=== PATIENT | female | born 1955 | race Caucasian/White ===

== ENCOUNTER 2020-01-14 13:45 | Emergency (ER) | payer OTHER ==
--- OUTSIDE RECORDS SUMMARY | 2020-01-14 14:10 | XMS REPORT | Continuity of Care Document ---
:1955 Author Organization [facility] Care Team Providers Name Role Phone [facility] Unavailable Un available Problems Problem Status Onset Classification Date Comments Sourc e Date Reported FALL Active 02/02/20 16 [facility] CLOSED FRACTURE OF Active 02/02/20 M H LEFT HIP WITH 16 [facility] NONUNIO 715.16 - LOC PRIM Active 05/04/19 OPID OSTEOA 12 [facility] Gastroesophageal Resolved Problem 02/09/2016 reflux disease [facility] (disorder) Hypothyroidism Resolved Problem 02/09/2016 (disorder) [facility] Malignant tumor of Resolved Problem 02/09/2016 breast (disorder) [facility] Bipolar disorder Resolved Problem 02/09/2016 (disorder) [facility] FX UNSP PART OF Active NECK OF L FEMUR, [facility] SUBS FO Medications Medication Details Route Status Patient Ordering Order Source Instructions Provider Date tramadol 50 mg = 1 tab, Active hydrochloride 50 PO, Q6Hnow, PRN 2015 [facility] Oral Tablet Pain Score 6-10, # 30 tab, 0 Refill(s) Ergocalciferol 50,000 Intl[facility] Active 02/05/ M H 78718 UNT Oral = 1 cap, PO, 2015 [facility] Capsule Q7D, # 8 cap, 0 Refill(s) Docusate Sodium 100 mg = 1 cap, Active 100 MG Oral PO, BID, # 60 [facility] Capsule cap, 0 Refill(s) cholecalciferol 2,000 IntlUnit Active 02/05/ M H 2000 intl units = 1 cap, PO, 2016 [facility] oral capsule Daily, # 30 cap, 0 Refill(s) calcium-vitamin D 1 tab, PO, BID, Active 600 mg-200 units # 60 cap, 0 2015 [facility] oral tablet Refill(s) 0.4 ML Enoxaparin 40 mg, SUB-Q, Active sodium 100 MG/ML Daily, X 21 2015 [facility] Prefilled Syringe day, # 840 mg, [Lovenox] 0 Refill(s) 1 tab, Route: Inactive Multivitamins PO, Drug Form: 2015 [facility] with Folic Acid TAB, Dosing 0.8 mg oral Weight 56.818, tablet kg, Daily, Start date: 02/06/16 9:00:00 LOOM TECHNICIAN, Duration: 30 day, Stop date: 03/06/16 9:00:00 LOOM TECHNICIAN Nexium 40 mg, Route: No Longer PO, Drug form: Active 2015 [facility] ECCAP, Daily, Dosing Weight 56.818, kg, Start date: 02/06/16 9:00:00 LOOM TECHNICIAN, Duration: 30 day, Stop date: 03/06/16 9:00:00 LOOM TECHNICIAN Lexapro Notes: (Same Inactive as: Lexapro) 2015 [facility] Thyroxine Notes: Take 1 Inactive hour before or 2015 2 hours after meal; Enteral feeds may interefere with the absorption of this medication. (Same as: Levothroid) Trazodone Notes: (Same No Longer Hydrochloride 100 As: Desyrel) Active [facility] Oral Tablet topiramate Notes: (Same No Longer As: Topamax) Active 2015 [facility] "Do Not Crush" Cymbalta Notes: (Same No Longer as: Cymbalta) Active 2015 [facility] (Do Not Crush) Protonix Notes: Tablet No Longer should not be Active 2015 chewed or crushed. (Same as: Protonix) Sodium Chloride 500 mL, 500 Inactive 0.154 MEQ/ML ml/hr, Infuse 2015 [facility] Injectable Over: 1 hr, Solution Route: IV, 500, Drug form: INJ, ONCE, Priority: STAT, Dosing Weight 56.818 kg, Start date: 02/04/16 9:43:00 LOOM TECHNICIAN, Duration: 1 doses or times, Stop date: 02/04/16 9:43:00 LOOM TECHNICIAN calcium-vitamin D Notes: (Same No Longer As: Caltrate Active 2015 [facility] 600 with D) ergocalciferol Notes: (Same No Longer as: Vitamin D) Active 2015 [facility] "Do Not Crush" Calcium Carbonate 500 mg, Route: No Longer 02/03 PO, Drug form: Active 2015 [facility] TAB, BID, Dosing Weight 56.818, kg, Start date: 02/04/16 9:00:00 LOOM TECHNICIAN, Duration: 30 day, Stop date: 03/04/16 17:00:00 LOOM TECHNICIAN Docusate Notes: (Same No Longer as: Colace) (Do Active 2015 [facility] t Not Crush) Cholecalciferol Notes: Same as No Longer 2000 [facility] Oral : Vitamin D3 Active 2015 [facility] Tablet Calcium Carbonate 1 tab, Route: No Longer 1500 MG / PO, Dosing Active 2015 [facility] Cholecalciferol Weight 56.818, 400 UNT Oral kg, BID, Start Tablet date: 02/04/16 9:00:00 LOOM TECHNICIAN, Duration: 30 day, Stop date: 03/04/16 17:00:00 LOOM TECHNICIAN Enoxaparin Notes: (Same No Longer as: Lovenox) Active 2015 [facility] ceFAZolin (SCIP) Notes: Same as: Inactive Ancef 2015 [facility] Acetaminophen Notes: Max Inactive acetaminophen 2015 [facility] 4000 mg/day (4 gm/day). (Same as: Tylenol Extra Strength) celecoxib Notes: NSAID. No Longer Please check Active 2015 [facility] indication. Not for seizure. (Same As: CeleBREX) gabapentin Notes: (Same No Longer as: Neurontin) Active 2015 [facility] Tramadol Notes: Not to Inactive exceed 2015 [facility] 400mg/day. (Same As: Ultram) Ondansetron Notes: (Same No Longer as: Zofran) Active 2015 [facility] MEDICATION WASTE Product Size: 4 mg Product Wasted: ___ mg Lorazepam Notes: (Same No Longer as: Ativan) Active 2015 [facility] Diphenhydramine Notes: (Same No Longer H as: Benadryl) Active 2015 [facility] Trazodone Notes: (Same No Longer As: Desyrel) Active 2015 [facility] Al hydroxide/Mg Notes: No Longer hydroxide/simethi (aluminum Active 2015 [facility] cone 200 mg-200 hydroxide-magne mg-20 mg/5 mL sium oral suspension hyd-simethicone [phone]/5m l 30 ml ud MIRIAM) Oxycodone 10 mg, Route: Inactive Hydrochloride 5 PO, Drug form: 2015 [facility] Oral Tablet TAB, Q4H, Dosing Weight 56.818, kg, PRN Pain Score 7-10, Start date: 02/03/16 22:18:00 LOOM TECHNICIAN, Duration: 30 day, Stop date: 03/04/16 22:17:00 LOOM TECHNICIAN Morphine Notes: (Same No Longer as:MORPhine Active 2015 [facility] Sulfate) Bisacodyl Notes: (Same No Longer As: Dulcolax, Active 2015 [facility] Bisco-Lax) Methocarbamol Notes: (Same No Longer as:Robaxin) Active 2015 [facility] Calcium Chloride 1,000 mL, Rate: No Longer 02/03 0.0014 MEQ/ML / 25 ml/hr, Active 2015 [facility] est Potassium Infuse over: 40 Chloride 0.004 hr, Route: IV, MEQ/ML / Sodium Dosing Weight Chloride 0.103 56.818 kg, MEQ/ML / Sodium Total Volume: Lactate 0.028 1,000, Start MEQ/ML Injectable date: 02/03/16 Solution 18:33:00 LOOM TECHNICIAN, Duration: 30 day, Stop date: 03/04/16 18:32:00 LOOM TECHNICIAN remove patch Notes: Remove No Longer patch 12 hours Active 2015 [facility] after application each day. Thyroxine Notes: Take 1 Inactive hour before or 2015 2 hours after meal; Enteral feeds may interefere with the absorption of this medication. (Same as: Levothroid) Cholecalciferol 1 tab, PO, Active 400 UNT / Folic Daily, 0 [address] [facility] [address] Acid 1 MG / Refill(s) pyridoxine 2 MG / Riboflavin 1.7 MG / Vitamin B 12 0.008 MG Chewable Tablet Vitamin B12 PO, Daily, 0 Active Refill(s) 2015 Trazodone 100 mg = 1 tab, Active Hydrochloride 100 PO, Bedtime, # 2016 [facility] Oral Tablet 30 tab, 0 Refill(s) topiramate 100 mg 100 mg = 1 tab, Active oral tablet PO, BID, # 30 2015 [facility] est tab, 3 Refill(s) duloxetine 60 MG 60 mg = 1 cap, Active Enteric Coated PO, BID, # 30 2015 [facility] Capsule cap, 0 [Cymbalta] Refill(s) Esomeprazole 40 40 mg = 1 cap, Active H MG Enteric Coated PO, Daily, # 30 2015 [facility] Capsule [Nexium] cap, 0 Refill(s) Escitalopram 20 20 mg = 1 tab, Active H MG Oral Tablet PO, Daily, # 30 2015 [facility] [Lexapro] tab, 0 Refill(s) levothyroxine 150 150 microgram = Active mcg (0.15 mg) 1 tab, PO, 2015 st oral tablet Daily, # 30 tab, 0 Refill(s) Morphine Notes: (Same No Longer as:MORPhine Active 2015 [facility] Sulfate) Ondansetron Notes: (Same No Longer as: Zofran) Active 2015 [facility] MEDICATION WASTE Product Size: 4 mg Product Wasted: ___ mg Acetaminophen Notes: Do not No Longer exceed 4 Active 2015 [facility] gm/day. (Same as: Tylenol) Sodium Chloride 250 mL, Route: No Longer 0.9% IV IVPB, Start Active 2015 [facility] date: 02/02/16 21:35:00 LOOM TECHNICIAN, Duration: 30 day, Stop date: 03/03/16 21:34:00 LOOM TECHNICIAN, PRN Line Flush BD Normal Saline Notes: (Same No Longer Flush as: BD Active 2015 [facility] Posiflush) Acetaminophen Notes: Max No Longer acetaminophen Active 2015 [facility] 4000 mg/day (4 gm/day). (Same as: Tylenol Extra Strength) Tramadol Notes: Not to No Longer exceed Active 2015 [facility] 400mg/day. (Same As: Ultram) Lidocaine Notes: Apply No Longer Hydrochloride only once for Active 2015 [facility] 0.05 MG/MG up to 12 hours Transdermal Patch in a 24-hour [Lidoderm] period (12 hours on and 12 hours off). (Same as: Lidoderm) "Remove old patch before application of new patch" Cefazolin Notes: Same as: No Longer Ancef Active 2015 [facility] Oxycodone Notes: (Same No Longer Hydrochloride 1 as: Active 2015 [facility] MG/ML Oral 'Roxicodone) Solution Dilaudid 0.5 mg, 0.5 mL, Inactive Route: IVP, 2015 [facility] Drug form: INJ, ONCE, Dosing Weight 68.182, kg, Priority: STAT, Start date: 02/02/16 20:42:00 LOOM TECHNICIAN, Stop date: 02/02/16 20:42:00 LOOM TECHNICIAN Dilaudid 0.5 mg, 0.5 mL, Inactive Route: IVP2015 [facility] Drug form: INJ, ONCE, Dosing Weight 68.182, kg, Priority: STAT, Start date: 02/02/16 18:50:00 LOOM TECHNICIAN, Stop date: 02/02/16 18:50:00 LOOM TECHNICIAN Zofran Notes: (Same Inactive as: Zofran) 2015 [facility] MEDICATION WASTE Product Size: 4 mg Product Wasted: ___ mg Allergies, Adverse Reactions, Alerts No Known Medication Allergies Immunizations No Data Provided for This Section Results Order Name Results Value Reference Date Interpretation Comments Bev rce Range CHEM PANEL Magnesium 2.0 1.8 - 2.4 02/03 [facility] CHEM PANEL eGFR 104 02/03 [facility] Comment: The [facility] eGFR is calculated using the CKD-EPI formula. In most young, healthy individuals the eGFR will be >90 mL/min/1.73m2 . The eGFR declines with age. An eGFR of 60-89 may be normal in some populations, particularly the elderly, for whom the CKD-EPI formula has not been extensively validated. Use of the eGFR is not recommended in the following populations:< br/>
Sherly viduals with unstable creatinine concentration s, including patients and those with serious co-morbid conditions.<b r/>
Patie nts with extremes in muscle mass or diet.

The data above are obtained from the National Kidney Disease Education Program (NKDEP) which additionally recommends that when the eGFR is used in patients with extremes of body mass index for purposes of drug dosing, the eGFR should be multiplied by the estimated BMI. CHEM PANEL B/C Ratio 24 6 - 25 02/03 [facility] CHEM PANEL AGAP 11.7 10.0 - 12 [facility] 20.0 /2015 [facility] CHEM PANEL Bili Total 0.6 0.2 - 1.3 02/03 [facility] CHEM PANEL Globulin 2.3 2.7 - 4.2 02/03 [facility] CHEM PANEL A/G Ratio 1.0 0.7 - 1.6 02/03 [facility] CHEM PANEL Total 4.7 6.4 - 8.4 02/03 [facility] Protein [facility] CHEM PANEL Calcium Lvl 7.6 8.5 - 10.5 02/03 [facility] CHEM PANEL CO2 24 24 - 32 02/03 [facility] CHEM PANEL Glucose Lvl 119 70 - 99 02/03 [facility] CHEM PANEL Creatinine 0.50 0.50 - 02/03 [facility] Lvl 1.40 /2015 [facility] CHEM PANEL BUN 12 7 - 22 02/03 [facility] CHEM PANEL Sodium Lvl 143 135 - 145 02/03 [facility] CHEM PANEL Alk Phos 35 39 - 136 02/03 [facility] CHEM PANEL AST 24 0 - 37 02/03 [facility] CHEM PANEL ALT 18 0 - 65 02/03 [facility] CHEM PANEL Albumin Lvl 2.4 3.5 - 5.0 02/03 [facility] CHEM PANEL Chloride Lvl 111 95 - 109 02/03 [facility] CHEM PANEL Potassium 3.7 3.5 - 5.1 02/03 [facility] Lvl /2015 [facility] CHEM PANEL Phosphorus 2.7 2.5 - 4.5 02/03 [facility] HEMATOLOGY MCHC 33.4 32.0 - 12 MH 36.0 /2015 [facility] HEMATOLOGY MCH 28.6 27.0 - 02/03 MH 31.0 /2016 [facility] HEMATOLOGY MPV 9.5 7.4 - 10.4 02/03 [facility] HEMATOLOGY Platelet 114 133 - 450 02/03 [facility] HEMATOLOGY RDW 13.6 11.5 - 02/03 MH 14.5 /2015 [facility] HEMATOLOGY Hct 25.9 36.0 - 02/03 MH 48.0 /2016 [facility] HEMATOLOGY MCV 85.5 80.0 - 12/ MH 98.0 /2016 [facility] HEMATOLOGY Hgb 8.6 12.0 - 12/ MH 16.0 /2016 [facility] HEMATOLOGY WBC 8.3 3.7 - 10.4 / MH /2015 [facility] HEMATOLOGY RBC 3.02 4.20 - 12/ MH 5.40 /2016 [facility] HEMATOLOGY Segs-Bands # 6.1 1.5 - 8.1 02/03 MH /2015 [facility] HEMATOLOGY Monocytes # 0.7 0.0 - 0.8 / MH /2015 [facility] HEMATOLOGY Lymphocytes 1.4 1.0 - 5.5 / MH # /2016 [facility] HEMATOLOGY Segs 73.4 45.0 - 12/ MH 75.0 /2016 [facility] HEMATOLOGY Monocytes 8.4 2.0 - 12.0 02/03 MH /2015 [facility] HEMATOLOGY Lymphocytes 17.4 20.0 - 02/03 MH 40.0 /2015 [facility] HEMATOLOGY Basophils 0.2 0.0 - 1.0 02/03 /2015 [facility] HEMATOLOGY Eosinophils 0.6 0.0 - 4.0 02/03 MH /2015 [facility] BLOOD BANK Antibody Negative 02/03 RESULTS Scrn (02/03/16 7:53 PM) /2015 [facility] BLOOD BANK ABO/Rh A NEG 02/03 RESULTS /2015 [facility] CHEM PANEL Vitamin D2 <10 / 1,25 (OH)2 /2015 [facility] CHEM PANEL Vitamin D 71 02/02 Result 1,25 (OH)2 Comment: [facility] Total Reference Range:
Ad ults: 21 - 65 CHEM PANEL Vitamin D3 69 02/02 Result 1,25 (OH) Comment: [facility] Performed At: [facility]
[address] [place], [place] [id number]<br/ >Justina Anderson MD Ph:[phone] ELECTROLYTE AGAP 8.8 10.0 - 12/ MH S 20.0 [facility] ELECTROLYTE eGFR 99 02/02 Result S /2015 Comment: The [facility] eGFR is calculated using the CKD-EPI formula. In most young, healthy individuals the eGFR will be >90 mL/min/1.73m2 . The eGFR declines with age. An eGFR of 60-89 may be normal in some populations, particularly the elderly, for whom the CKD-EPI formula has not been extensively validated. Use of the eGFR is not recommended in the following populations:< br/>
Sherly viduals with unstable creatinine concentration s, including patients and those with serious co-morbid conditions.<b r/>
Patie nts with extremes in muscle mass or diet.

The data above are obtained from the National Kidney Disease Education Program (NKDEP) which additionally recommends that when the eGFR is used in patients with extremes of body mass index for purposes of drug dosing, the eGFR should be multiplied by the estimated BMI. ELECTROLYTE CO2 28 24 - 32 12/ MH S /2015 [facility] ELECTROLYTE Potassium 3.8 3.5 - 5.1 12/ MH S Lvl /2015 [facility] ELECTROLYTE Sodium Lvl 141 135 - 145 12/ MH S /2015 [facility] ELECTROLYTE BUN 16 7 - 22 12 S /2015 [facility] ELECTROLYTE Creatinine 0.58 0.50 - 12 MH S Lvl 1.40 /2015 [facility] ELECTROLYTE Glucose Lvl 117 70 - 99 12/ MH S /2015 [facility] ELECTROLYTE Calcium Lvl 8.8 8.5 - 10.5 12/ MH S /2015 [facility] ELECTROLYTE Chloride Lvl 108 95 - 109 12/ MH S /2016 [facility] HEMATOLOGY INR 1.06 0.85 - 12/ MH 1.17 /2016 [facility] HEMATOLOGY PT 14.0 12.0 - 12/ MH 14.7 /2016 [facility] HEMATOLOGY RDW 13.8 11.5 - 12/ MH 14.5 /2016 [facility] HEMATOLOGY MCHC 32.3 32.0 - 12/ MH 36.0 /2016 [facility] HEMATOLOGY MCH 28.0 27.0 - 12/ MH 31.0 /2016 [facility] HEMATOLOGY MCV 86.5 80.0 - 12/ MH 98.0 /2016 [facility] HEMATOLOGY MPV 8.6 7.4 - 10.4 12/ MH /2016 [facility] HEMATOLOGY RBC 4.23 4.20 - 12/02 MH 5.40 /2016 [facility] HEMATOLOGY Hct 36.6 36.0 - 12/ MH 48.0 /2016 [facility] HEMATOLOGY Hgb 11.8 12.0 - 12/ MH 16.0 /2016 [facility] HEMATOLOGY Platelet 159 133 - 450 12/ MH /2015 [facility] WBC 11.8 3.7 - 10.4 12/ MH /2015 [facility] HEMATOLOGY Segs-Bands # 10.1 1.5 - 8.1 12/ /2015 [facility] HEMATOLOGY Lymphocytes 1.1 1.0 - 5.5 / # /2015 [facility] HEMATOLOGY Monocytes # 0.5 0.0 - 0.8 02/02 [facility] HEMATOLOGY Eosinophils 0.0 0.0 - 0.5 12/ MH # /2016 [facility] HEMATOLOGY Basophils # 0.0 0.0 - 0.2 02/02 [facility] HEMATOLOGY Segs 85.8 45.0 - 12 MH 75.0 /2015 [facility] HEMATOLOGY Monocytes 4.5 2.0 - 12.0 02/02 [facility] HEMATOLOGY Lymphocytes 9.6 20.0 - 02/02 MH 40.0 /2015 [facility] HEMATOLOGY Basophils 0.1 0.0 - 1.0 02/02 [facility] HEMATOLOGY Eosinophils 0.0 0.0 - 4.0 02/02 [facility] Pathology Reports No Data Provided for This Section Diagnostic Reports Report Value Date Source Pelvis AP DX Pelvis AP DX 02/03/2016 10:18 PM LOOM TECHNICIAN 02/03/2016 [facility] Ordering Physician: Sonny Parada MD CLINICAL INDICATION: Fracture; COMPARISON: None TECHNIQUE: Supine AP view of the pelvis was obta ined. FINDINGS AND IMPRESSION: No acute fracture, subluxati on, or dislocation is present. Completed left hemiarthroplasty is noted. SL: SSENDOS-PC Pelvis AP DX Pelvis AP DX 02/03/2016 9:04 PM LOOM TECHNICIAN 02/03/2016 [facility] Ordering Physician: Sonny Parada MD CLINICAL INDICATION: Fracture; COMPARISON: 02/02/2016 TECHNIQUE: Portable intraoperative AP view of th e pelvis. FINDINGS AND IMPRESSION: Left proximal femoral prosthetic without the fem oral head is well aligned. SL: SSENDOS-PC Hip 2/3 views uni Patient Name: VIKAS STOKES 02/02/2016 [facility] DX : 1955; Age: 60 years Female MR: [id number] Study: Hip 2/3 views uni DX Order Time: 02/02/20 16 5:14 PM LOOM TECHNICIAN CLINICAL INDICATION: Pain Post Trauma COMPARISON: None FINDINGS: Acute, transverse fracture t hrough the subcapital region of the proximal left femur. No evidence of femoral head dislocation. Large mixed sclerotic and geraldo cent lesion (13.4 x 10 cm) involving majority of the left ilium. This lesion appears slightly expansile. Soft tissue swelling surrounds the left hip. IMPRESSION: Acute, transverse fracture t hrough the subcapital region of the proximal left femur. Large mixed sclerotic and geraldo cent lesion (13.4 x 10 cm) involving majority of the left ilium. 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 SL: [id number] Consultation Notes No Data Provided for This Section Discharge Summaries No Data Provided for This Section History and Physicals No Data Provided for This Section Vital Signs Vital Sign Value Date Comments Source Heart Rate 71 02/06/2016 [facility] Respitory Rate 18 02/06/2016 [facility] Systolic (mm Hg) 96 02/06/2016 [facility] t Diastolic (mm Hg) 58 02/06/2016 [facility] Temperature Oral (F) 98.4 F 02/06/2016 [facility] Respitory Rate 18 02/06/2016 [facility] Systolic (mm Hg) 98 02/06/2016 [facility] t Diastolic (mm Hg) 47 02/06/2016 [facility] Heart Rate 68 02/06/2016 [facility] Temperature Oral (F) 98.1 F 02/06/2016 [facility] Systolic (mm Hg) 83 02/06/2016 [facility] t Diastolic (mm Hg) 50 02/06/2016 [facility] Temperature Oral (F) 98.3 F 02/06/2016 [facility] Heart Rate 62 02/06/2016 [facility] Respitory Rate 18 02/06/2016 [facility] BMI Calculated 21.5 02/03/2016 [facility] Height 162.56 cm 02/03/2016 [facility] Weight 56.818 02/03/2016 [facility] Height 160.02 cm 02/03/2016 [facility] BMI Calculated 26.63 02/03/2016 [facility] Weight 68.182 02/03/2016 [facility] Weight 68.182 02/02/2016 [facility] Encounters Location Location Encounter Encounter Reason Attending ADM PR Stat us Source Details Type Number For Provider Date Date Visit OD [id number] 715.16 JEMIMA 05/08 Active O PID - LOC [facility] [id number] Minerva Ali 02/01 02/05 [facility] /2015 [facility] Procedures Procedure Code Date Perfomer Comments Source Hysterectomy<sup [id number] 30 years ago [facility] >1</sup> Knee [id number] left knee [facility] replacement<sup> replacement 2</sup> 4years ago [place] of [id number] [place] left breast Mastectomy of [id number] Rosita c[place] right breast Assessment and Plan Assessment and Plan Date Source Extracted from:Title: Progress Note * 02/06/2016 [facility] Author: Ashley Thomas [employer]ER Date: 02/06/16 Impression and Plan I: s/p hip hemiarthroplasty left femoral neck fracture, POD #3 acute blood loss anemia, secondary to trauma and surgery P: pain control may discharge from ortho standpoint and follow up with Dr Parada in 2 weeks; Ms Stokes prefers to go home with home health and she lives with her a son wound care: keep current dressing dry and clean and wi ll be remove in MD office prophylatic DVT: mobilization, SCD and Lovenox x 3 weeks Extracted from:Title: Clinical Document Author: Jerson Joya MD Date: 02/03/16 Referring Physician: Minerva Ferreira MD Reason for Consultation: Left hip fracture Date of Evaluation:02/03/2016 HPI: Mrs. Stokes is a 60-year-old woman who was playing with her grandson and sustained a mechanical fall yesterday landing on her left hip. She had immediate left hip pain and inability to ambulate th ereafter. Pain was severe and nonradiat ing. She normally will walks without a walker but could not afterwards. She has a previous history of breast cancer for which she underwent bilateral mastectomi es as well as chemotherapy. It was know n to be metastatic. 3-4 years ago, she had left hip pain for which she underwent radiation to that area. Her left hip pain resolved. By report she has had bone scans every once along the most recent one indicated that she had no evidence of metastasis. PMH: Breast cancer status post bilat eral mastectomies, chemotherapy, radiation; hypothyroidism. PSH: Bilateral mastectomies, hysterectomy, left total kn ee arthroplasty. Meds: See MAR: No anticoagulants. Allergies: NKDA FH: Skin and brain cancer. SH: No tobacco, alochol or drugs ROS: General: no fever, chills, or change in weight Eyes: no change in vision, no double vision ENT: no change in hearing, no sore throat or congestion CV: no chest pain or palpitations Pulm: no shortness of breath, cough, or wheezing Abd: no abdominal pain, nausea, vomiting, diarrhea, hematoch ezia Renal: no hematuria or dysuria Integ: no rashes or hives Endo: no heat or cold intolerance, no excessive urination Heme: no easy bleeding or bruising Neuro: no headache or seizures Psych: no depression or anxiety PE: Vitals Tmp(F) Pulse BP RR SpO2 FIO2 02/02 04:00 99.0 88 126/79 18 98 --- 02/02 00:00 97.7 73 103/65 18 98 --- 02/01 21:49 99.0 74 105/54 18 99 --- 02/01 21:00 ---- 71 136/80 17 100 --- 02/01 18:51 ---- 72 133/89 15 100 --- 24 Hr Tmax: 99.0F (37.22c) at 02/02 04:0 0 Vital Signs are the last 5 in the past 48 hours. Gen: alert and oriented x 3, in no apparent distress HEENT: atraumatic, normocephalic Neck: supple with no obvious masses Chest: non-labored breathing with no use of accessory muscle s Abd: no distension, no tenderness MSK: RUE: No deformity, no tenderness, no open wounds, full ROM withou t pain/crepitus. Sensation intact in median, ulnar, and radial distributions distally. Motor: + wrist ext/flex, EPL/FPL, and intrinsics. 2+ radial pulse with brisk capillary refill. LUE: No deformity, no tenderness, no open wounds, full ROM withou t pain/crepitus. Sensation intact in median, ulnar, and radial distributions distally. Motor: + wrist ext/flex, EPL/FPL, and intrinsics. 2+ radial pulse with brisk capillary refill. Pelvis: no pain with pelvic compression RLE: No deformity, no tenderness, no open wounds, full ROM withou t pain/crepitus. Sensation intact in superfical and deep peroneal and tibial distributions distally. Motor: + dors/plantarflexion + EHL. 2+ DP with brisk capillary refill LLE: No significant deformity of the left low er extremity. There is severe pain with logroll at the hip. There is tenderness about the greater trochanter. No open wounds or abrasions. Sensation intact in superfical and deep peroneal and tibial distributions distally. Motor: + dors/plantarflexion + EHL. 2+ DP with brisk capillary refill Imaging: Left hip x-rays: Valgus impacted left fe moral neck fracture. Mild lucency of the femoral neck either due to osteoporosis or metastasis. Large sclerotic lesion of the left ilium likely related to previous metastasis. Labs: 02/011 Glucose Lvl 117 H BUN 16 Creatinine Lvl 0.58 Sodium Lvl 141 Potassium Lvl 3.8 Chloride Lvl 108 CO2 28 AGAP 8.8 L Calcium Lvl 8.8 eGFR 99 WBC 11.8 H RBC 4.23 Hgb 11.8 L Hct 36.6 Platelet 159 MPV 8.6 PT 14.0 INR 1.06 Assessment: Valgus impacted left femoral neck fracture. Plan: - On initial presentation prior to lear liz the patient's history, I felt this injury likely would be best treated with percutaneous screw fixation. I doubt there is likely metastasis in the femo ral neck but there is some lucency on th e x-ray. This very well could be osteoporosis or metastasis. The bigger concern is that she's had previous irradiation to his left hip and the potential fo r healing the fracture may be limited. I therefore think the best option is a chilango-versus total hip arthroplasty, likely cemented. This is a procedure performed less often am going to consult my partn er Dr. Parada to evaluate and treat this patient.. - Keep patient nothing by mouth and plans for surgery later this afternoon. Extracted from:Title: Clinical Document Author: Sonny Parada MD Date: 02/03/16 PATIENT NAME: Vikas Stokes DATE OF OPERATION/PROCEDURE: 02/07/2016 ATTENDING SURGEON: Dr. Sonny Parada SPEED READING TEACHER: Steffany Sams PREOPERATIVE DIAGNOSIS: left femoral neck fracture. POSTOPERATIVE DIAGNOSIS: left femoral neck fracture. PROCEDURE PERFORMED: left hip chilango arthroplasty. ANESTHESIA: General. COMPLICATIONS: None. ESTIMATED BLOOD LOSS: 200mL COMPLICATIONS: None. DRAINS: None. IMPLANTS USED: 1. Pradeep Accolade 2 femoral stem size #6, 132 neck angle 2. Pradeep LFIT femoral head outer diameter 20 mm, offset - 4 mm 3. Pradeep UHR bipolar component outer diameter 47 mm, inne r diameter 28 mm INDICATIONS: The patient is a 60-year-old female who sustained an injury to the left hip resulting in a femoral neck fracture. The patient was made aware of the risks, benefits and alternatives to the procedure. A ll of the patient's questions were answe red to their satisfaction and informed consent was obtained. PROCEDURE IN DETAIL: The patient was met in the preoperative holding area where the informed consent was reviewed and the operative site marked. The patient was then taken back to the operating room. After induction of an esthesia, the patient was carefully plac ed in the lateral decubitus position with the operative extremity facing up. A Stulberg hip positioner was used to support the patient in this position and all b tylor prominences were well-padded with an axillary roll placed. The operative extremity was prepped and draped in usual sterile fashion. A surgical timeout was performed where the correct patient, plan lorraine operative procedure, correct operati ve site was reviewed and agreed upon by all operating room staff. It was also confirmed the patient had received a dose of intravenous prophylactic antibiotics as well as tranexamic acid. The planned incision was marked along th e posterolateral aspect of the hip directly over the greater trochanter. A standard posterolateral approach was used for this procedure. After the incision was made, the subcutaneous adipose tissue wa s dissected down sharply to the level of fascia. Ahn elevator was used to better visualize the fascial layer directly over the greater trochanter. Electrocaute ry was used to incise the fascia in line with the overlying incision. Ahn elevator was then placed under the gluteus aden, and electrocautery was used to dissect through this tissue. The Charnley retractor was then put into place. The extremity was placed in internally rotated position to better facilitate access to the posterior aspect of the hip. Bursa was dissected off the posterior portion of the greater trochanter using electro cautery. The external rotators and posterior capsular structures were dissected off of the base of the femoral neck. The capsular tissue was tagged with two #5 FiberWires. The hip was gently placed in to a dislocated position and the planned femoral cut was marked on the posterior aspect of the femoral neck. The femoral neck was then cut with a reciprocating s aw, and the femoral head and fractured n thi was extracted. A series of retractors were then placed about the acetabulum to better visualize this structure. Using a pituitary rongeur and electrocautery , the ligamentum teres was resected. Af ter adequate visualization of the acetabulum was obtained, the acetabulum was sized with trial components. Attention was then addressed to the femu r. The piriformis fossa was cleaned of soft tissue. Rongeur was used to remove the bony prominence about the posterolateral corner of the femoral neck. Box ost eotome was then used to create a bony ca nal at the lateral aspect of the base of the femoral neck. A canal finder was then placed down the femoral canal. The femoral canal was then prepared with a ser ies of sequential broaches. A size 6 br oach appeared to have good fit. A trial neck and head were placed atop the broach, and the hip was reduced. Leg lengths were checked and range of motion and sta bility tested. With the hip in full ext ension, there was no anterior dislocation with 90 degrees of external rotation. With the hip extended and knee flexed, the hip could be easily rotated internall y to 40 degrees. With the hip flexed to 90 degrees, the hip could be internally rotated approximately 70 degrees before impingement. It was stable in this position as well as the position of sleep. I ntraoperative x-rays were then taken cher ifying component positioning and sizing as well as leg lengths. A size 6 femoral stem was then placed onto the prepared canal and gently impacted in until fully seated. A trial femoral head was placed atop the femoral stem. After reduction of the hip, range of motion and stability were once again verified. The hip was then dislocated and the trial head was r emoved. The Soria taper was thoroughly cleaned and dried and the bipolar femoral head was impacted onto the taper. It was confirmed the head had been securely fit onto the stem. The wound was thoroug hly irrigated and the hip was reduced. Hip range of motion and stability once again checked and found to be satisfactory. The posterior capsule was then reapproxi mated to itself with #5 FiberWire giving us a good, stable soft-tissue sling. The wound was then thoroughly irrigated with 3 liters of bacitracin-impregnated pul se lavage as well as a liter of Betadine impregnated solution. Then the wound was infiltrated with multimodal anesthetic. The fascial layer was closed with Quill in a running fashion Subcutaneous anne pose tissue was reapproximated with 0-Vi cryl and 2-0 Vicryl in interrupted fashion. The skin was then addressed with a running 2-0 Monocryl with overriding Dermabond. A sterile dressing was then appli ed. The drapes were taken down. The pa tient was transferred to the hospital bed. Patient was transported to recovery room in comfortable and stable condition. All counts were correct at the completion of the case. ATTESTATION: Dr. Parada was present and scrubbed fo r the entire procedure. Ms. Sams served as the cosmetic sales assistant as there was no resident available. Plan of Care No Data Provided for This Section Social History Social History Date Source Social History TypeResponse 02/03/2016 [facility] Substance Abuse Use: None. Alcohol Past Smoking Status Never smoker; Exposure to Tobacco Smoke None; Cigarette Smoking Last 365 Days No; Reg Smoking Cessation Counseling No Family History No Data Provided for This Section Advance Directives No Data Provided for This Section Functional Status No Data Provided for This Section
--- OUTSIDE RECORDS SUMMARY | 2020-01-14 14:11 | XMS REPORT ---
:1955 Author Organization [facility] Address [address], [address] [place] [address] Care Team Providers Name Role Phone Sheridan Unavailable [phone] PROBLEMS Type Condition ICD9-CM UEP02-LU Onset Condition SNOMED Code Notes Code Code Dates Status Problem Sinus problem J34.9 Active Problem Migraines G43.909 Active 60104788 Problem Cancer C80.1 Active 92179409 Problem Gastroesophageal K21.9 Active 492318960 reflux disease, esophagitis presence not specified Problem Coarse tremors G25.2 Active 76951715 Located at hands/arms /head. Problem Acquired E03.9 Active 939585216 hypothyroidism Problem Memory problem R41.3 Active 042961005 Problem Osteoporosis M81.0 Active 58060133 Problem Bipolar disorder F31.9 Active 99888673 Problem Asthma J45.909 Active 495481813 Problem GERD K21.9 Active 914061027 (gastroesophageal reflux disease) Problem Bipolar affective F31.9 Active 88941094 disorder, remission status unspecified Problem Anxiety F41.9 Active 06240936 Problem Pain in left foot M79.672 Active 89594884097485 7 Problem Pain in right M79.671 Active 76740996281215102 foot Problem Swelling R60.9 Active 09687346 Located at feet/ankle s/distal BLEs. Problem Acute pain of M25.561 Active 89886044 right knee Problem Seasonal J30.2 Active 986498973 allergies Problem Primary M17.11 Active 631159950045256 osteoarthritis of right knee Problem Thyroid disease E07.9 Active 53242662 Problem Depression with F41.8 Active 063318973 anxiety Problem History of left Z96.652 Active 830164859 knee replacement Problem Intractable R51 Active 98789996 Worsening. headache, unspecified chronicity pattern, unspecified headache type Problem Right knee pain, M25.561 Active 17620958 unspecified chronicity Problem Paresthesia of R20.2 Active 391482119 Describ ed right foot as tingling of right foot. ALLERGIES Allergen (clinical Drug/Non Drug Reaction Allergy Type Onset Date S tatus drug ingredient) Allergy documented on EMR codeine Unknown Non Drug Allergy Active Pollen Unknown Non Drug Allergy Active ENCOUNTERS from 1955 to 2019-12-03 Encounter Location Date Provider Diagnosis [facility] [address] Nov, [facility], knee, [facility] [address] right M25.56 1 and [place], [place] Primary osteoar thritis [address] of right knee M 17.11 IMMUNIZATIONS No Information SOCIAL HISTORY Tobacco Use: Social History Observation Description Date Details (start date - stop date) Former Smoker Sex Assigned At : Social History Observation Description Sex Assigned At Unknown Alcohol Screen Question Answer Notes Did you have a drink containing alcohol in the past year? No Points 0 Interpretation Negative Tobacco Use/Smoking Question Answer Notes Are you a former smoker Additional Findings: Tobacco Non-User Current non-smoker REASON FOR REFERRAL No Information VITAL SIGNS Height 65 in Nov, Weight 155.2 lbs Nov, Temperature 97.5 degrees Fahrenheit Nov, BMI 25.82 kg/m2 Nov, Blood pressure systolic 122 mm Hg Nov, Blood pressure diastolic 72 mm Hg Nov, MEDICATIONS Medication SIG (Take, Route, Start Date End Date Status Frequency, Duration) Trazodone HCl 100 MG 1 tablet at bedtime Active Orally Once a day Cymbalta 60 MG 1 capsule Orally Once Not- Taking a day Albuterol Sulfate HFA 108 2 puffs as needed Apr, Active (90 Base) MCG/ACT Inhalation every 4-6 hrs for 30 days Lamictal 100 mg 1 tablet Orally Once a Ac tive day in evening Robbins Carbonate 300 MG 1 capsule at bedtime Active Orally Once a day Omeprazole 40 MG 1 capsule Orally Once Ac tive a day for 30 Meloxicam 7.5 MG 1 tablet Orally Once a Nov, Dec, A ctive day for 30 day(s) Biotin 37129 MCG 1 tablet Orally Once a A ctive day for 30 day(s) 28-0.8 MG 1 tablet Orally Once a Active day for 30 day(s) Sumatriptan Succinate Not-Ta rona Levothyroxine Sodium 125 1 tablet in the Active MCG morning on an empty stomach Orally Once a day for 90 days Fluticasone Propionate 50 2 sprays in each Apr, Active MCG/ACT nostril Nasally Once a day for 30 day(s) Propranolol HCl Active Duloxetine HCl Active Lamotrigine Active CarBAMazepine ER as directed Orally Not-T aking (Antipsych) 100 MG PROCEDURES No Information RESULTS No Results REASON FOR VISIT NEW PATIENT: RT KNEE PAIN- XRAY MEDICAL (GENERAL) HISTORY Type Description Date Medical History Bipolar disorder Medical History Seasonal allergies Medical History Cancer Medical History Memory problem Medical History GERD (gastroesophageal reflux disease) Medical History Anxiety Medical History Migraines Medical History Thyroid disease Medical History Asthma Medical History Osteoporosis Medical History Sinus problem Surgical History ACL Surgical History Hysterectomy Surgical History Masectomy Surgical History Left Knee Replacement Surgical History Left Hip Replacement Goals Section No Information Health Concerns No Information MEDICAL EQUIPMENT No Information MENTAL STATUS No Information FUNCTIONAL STATUS No Information ASSESSMENTS Encounter Date Diagnosis Notes Nov, Primary osteoarthritis of right knee (IC D-10 - M17.11) Nov, Pain, joint, knee, right (ICD-10 - M25.5 61) PLAN OF TREATMENT Medication Medication Name Sig Start Date Stop Date Meloxicam 7.5 MG 1 tablet Orally Once a day for 30 day(s) NovDec, Treatment Notes Assessment Notes Clinical Notes Primary osteoarthritis of right knee I discussed with the tanna devi at length her diagnosis and treatment plan and she expressed understanding. We will proceed with conservative treatment at this time. We discussed weight management, strengthening exercises, NSAIDs use, and corticosteroid/viscosupplementatio n injections. She will return to clinic for right knee kenalog injection once approved by her insurance. She was also given a prescription for Mobic. Treatment Notes Test Name Order Date X-RAY EXAM KNEE 1 OR 2 VIEWS ([id number]) 2019-12-03 X-RAY EXAM KNEE STANDING VIEW (40544) 2019-12-03 Next Appt Details f/u for right knee kenalog injection Wendel son: Provider Name:Maryshankar Nam, 1 03:40:00 PM, [address], [address], [place], [address], Insurance Providers Payer Name Payer Address Payer Insured Patient Coverage Cover age End Phone Name Relationship to Start Date Kranthi e Insured [employer] [address] [address] [phone] Tiara Stokes MEDICARE [place] [address] [place] [id number]
--- OUTSIDE RECORDS SUMMARY | 2020-01-14 14:11 | XMS REPORT ---
:1955 Author Organization [employer] Care Team Providers Name Role Phone Mary Nam Provider Role Unavailable Allergies, Adverse Reactions, Alerts Substance Reaction Event Type Pollen Info Not Available Non Drug Allergy Problems Problem Type Condition Code Onset Dates Condition Statu s Assessment History of left knee replacement Z96.652 Active Assessment Paresthesia of right foot R20.2 Ac tive Assessment Acute pain of right knee M25.561 Act marcela Problem Anxiety F41.9 Active Problem Bipolar affective disorder, F31.9 Active remission status unspecified Problem Sinus problem J34.9 Active Problem Coarse tremors G25.2 Active Problem Pain in left foot M79.672 Active Problem Gastroesophageal reflux disease, K21.9 Active esophagitis presence not specified Problem Paresthesia of right foot R20.2 Ac tive Problem Right knee pain, unspecified M25.561 Active chronicity Problem Thyroid disease E07.9 Active Problem Migraines G43.909 Active Problem Acute pain of right knee M25.561 Act marcela Problem Cancer C80.1 Active Problem Swelling R60.9 Active Problem Pain in right foot M79.671 Active Problem Intractable headache, unspecified R51 Active chronicity pattern, unspecified headache type Problem History of left knee replacement Z96.652 Active Problem Memory problem R41.3 Active Problem Acquired hypothyroidism E03.9 Acti ve Problem Seasonal allergies J30.2 Active Problem Depression with anxiety F41.8 Acti ve Problem GERD (gastroesophageal reflux K21.9 Active disease) Problem Asthma J45.909 Active Problem Bipolar disorder F31.9 Active Problem Osteoporosis M81.0 Active Medications Medication Code Code Instructions Start End Status Dosage System Date Date Cymbalta [facility] 62214896019 60 MG Orally Active 1 caps ule Once a day Levothyroxine [facility] 39245339852 125 MCG Orally Active 1 tablet Sodium Once a day in the morning on an empty stomach Lamictal [facility] 28414005612 100 mg Orally Active 1 tab let Once a day in evening [facility] 93536555433 28-0.8 MG Active 1 tablet Orally Once a day Trazodone HCl ND 17409294690 100 MG Orally Active 1 tablet Once a day at bedtime Fluticasone ND 23180924517 50 MCG/ACT Apr 20, Active 2 spr ays Propionate Nasally Once a 2020 in eac h day nostril Omeprazole ND 20188377279 40 MG Orally Active 1 ca psule Once a day CarBAMazepine ER [facility] [address]-24 100 MG Orally Act marcela as (Antipsych) directed Biotin [facility] 07298637717 16685 MCG Active 1 tablet Orally Once a day [place] 25022723229 300 MG Orally Active 1 caps ule Carbonate Once a day at bedtime Albuterol [facility] 28681447863 108 (90 Base) Apr 20, Active 2 pu ffs as Sulfate HFA MCG/ACT 2019 needed Inhalation every 4-6 hrs Results No Known Results Summary Purpose eClinicalWorks Submission
--- OUTSIDE RECORDS SUMMARY | 2020-01-14 14:11 | XMS REPORT ---
:1955 Author Organization [facility] Address [address] [place] [address] Care Team Providers Name Role Phone Millender Unavailable [phone] PROBLEMS Type Condition ICD9-CM APQ50-EV Onset Condition SNOMED Code Notes Code Code Dates Status Problem Sinus problem J34.9 Active Problem Migraines G43.909 Active 26643980 Problem Cancer C80.1 Active 64201123 Problem Gastroesophageal K21.9 Active 171193314 reflux disease, esophagitis presence not specified Problem Coarse tremors G25.2 Active 08682988 Located at hands/arms /head. Problem Acquired E03.9 Active 323395243 hypothyroidism Problem Memory problem R41.3 Active 651590961 Problem Osteoporosis M81.0 Active 43766735 Problem Bipolar disorder F31.9 Active 22150363 Problem Asthma J45.909 Active 739690051 Problem GERD K21.9 Active 657281078 (gastroesophageal reflux disease) Problem Bipolar affective F31.9 Active 29637814 disorder, remission status unspecified Problem Anxiety F41.9 Active 90626607 Problem Pain in left foot M79.672 Active 74508612763437 7 Problem Pain in right M79.671 Active 57137779486588377 foot Problem Swelling R60.9 Active 56289099 Located at feet/ankle s/distal BLEs. Problem Acute pain of M25.561 Active 09902642 right knee Problem Seasonal J30.2 Active 917955544 allergies Problem Primary M17.11 Active 869409214130629 osteoarthritis of right knee Problem Thyroid disease E07.9 Active 76854223 Problem Depression with F41.8 Active 931251774 anxiety Problem History of left Z96.652 Active 199478018 knee replacement Problem Intractable R51 Active 55526187 Worsening. headache, unspecified chronicity pattern, unspecified headache type Problem Right knee pain, M25.561 Active 73661509 unspecified chronicity Problem Paresthesia of R20.2 Active 296582708 Describ ed right foot as tingling of right foot. ALLERGIES Allergen (clinical Drug/Non Drug Reaction Allergy Type Onset Date S tatus drug ingredient) Allergy documented on EMR codeine Unknown Non Drug Allergy Active Pollen Unknown Non Drug Allergy Active ENCOUNTERS from 1955 to 2019-12-03 Encounter Location Date Provider Diagnosis [facility] [address] [place] [address] Nov, [address] [address] IMMUNIZATIONS No Information SOCIAL HISTORY Tobacco Use: [...] REASON FOR REFERRAL No Information VITAL SIGNS No information MEDICATIONS Medication SIG (Take, Route, Start Date End Date Status Frequency, Duration) Trazodone HCl 100 MG 1 tablet at bedtime Active Orally Once a day Cymbalta 60 MG 1 capsule Orally Once Not- Taking a day 28-0.8 MG 1 tablet Orally Once a Active day for 30 day(s) Sumatriptan Succinate Not-Ta rona Nebo Carbonate 300 MG 1 capsule at bedtime Active Orally Once a day Lamictal 100 mg 1 tablet Orally Once a Ac tive day in evening Meloxicam 7.5 MG 1 tablet Orally Once a Nov, Dec, A ctive day for 30 day(s) Omeprazole 40 MG 1 capsule Orally Once Ac tive a day for 90 days Biotin 80419 MCG 1 tablet Orally Once a A ctive day for 30 day(s) Lamotrigine Active Levothyroxine Sodium 125 1 tablet in the Active MCG morning on an empty stomach Orally Once a day for 90 days Albuterol Sulfate HFA 108 2 puffs as needed Apr, Active (90 Base) MCG/ACT Inhalation every 4-6 hrs for 30 days Propranolol HCl Active Duloxetine HCl Active Fluticasone Propionate 50 2 sprays in each 17 Apr, 2019 Active MCG/ACT nostril Nasally Once a day for 30 day(s) CarBAMazepine ER as directed Orally Not-T aking (Antipsych) 100 MG PROCEDURES No Information RESULTS No Results REASON FOR VISIT refill-stomach pills MEDICAL (GENERAL) HISTORY Type Description Date Medical [...] No Information FUNCTIONAL STATUS No Information ASSESSMENTS No Information PLAN OF TREATMENT Medication Medication Name Sig Start Date Stop Date Omeprazole 40 MG 1 capsule Orally Once a day for 90 days Meloxicam 7.5 MG 1 tablet Orally Once a day for 30 day(s) NovDec, Next Appt Details Provider Name:Mary Viv, 2019-12-0 1 03:40:00 PM, [address] [facility], [address], [place], [address], Insurance Providers Payer Name Payer Address Payer Insured Patient Coverage Cover age End Phone Name Relationship to Start Date Kranthi e Insured [employer] [address] [address] [phone] Tiara Stokes [place]IC[place] [address] [phone]
--- OUTSIDE RECORDS SUMMARY | 2020-01-14 14:11 | XMS REPORT ---
:1955 Author Organization [employer] Care Team Providers Name Role Phone Mary Nam Provider Role Unavailable Allergies No Known Allergies Problems Problem Type Condition Code Onset Dates Condition Statu s Problem Coarse tremors G25.2 Active Problem Pain in left foot M79.672 Active Problem Gastroesophageal reflux disease, K21.9 Active esophagitis presence not specified Problem Paresthesia of right foot R20.2 Ac tive Problem Thyroid disease E07.9 Active Problem Right knee pain, unspecified M25.561 Active chronicity Problem Migraines G43.909 Active Problem Cancer C80.1 Active Problem Acute pain of right knee M25.561 Act marcela Problem Swelling R60.9 Active Problem Pain in [...] Active Problem Bipolar disorder F31.9 Active Problem Anxiety F41.9 Active Problem Sinus problem J34.9 Active Problem Osteoporosis M81.0 Active Problem Bipolar affective disorder, F31.9 Active remission status unspecified Medications No Known Medications Results No Known Results Summary Purpose eClinicalWorks Submission
--- OUTSIDE RECORDS SUMMARY | 2020-01-14 14:11 | XMS REPORT | Continuity of Care Document ---
:1955 Author Organization [facility] t Address [address] [place] [address] Care Team Providers Name Role Phone Doctor Unassigned, Name Attending Clinician Unavailable Marianne Ferreira Attending Clinician Marianne Ferreira Admitting Clinician Problems Condition Condition Condition Status Onset Resolution Last Treating Co mments Source Name Details Category Date Date Treatment Clinician Date FALL Diagnosis Active 2015-032016-02-02 [facility] oria 2-01 18:30:00 l FALL 00:00: Hill 00 Active 02/02/2016 [facility] CLOSED Diagnosis Active 2015-032016-02-10 Mem oria FRACTURE 2- 22:09:00 l OF LEFT CLOSED 00:00: [place] HIP WITH FRACTURE 00 NONUNIO OF LEFT HIP WITH NONUNIO Active 02/02/2016 [facility] 715.16 - Diagnosis Active 2011-05-09 M emoria LOC PRIM 3-02 16:10:00 l OSTEOA 715.16 - 00:01: George sequeira LOC PRIM 00 OSTEOA Active 05/04/2011 OPID [facility] Gastroesop Problem Resolve 2016-02-09 Memoria hageal d 02:42:34 l reflux [place] disease Gastroesop (disorder) hageal reflux disease (disorder) Resolved Problem 02/09/2016 [facility] Hypothyroi Problem Resolve 2016-02-09 Memoria dism d 02:42:34 l (disorder) George n Hypothyroi dism (disorder) Resolved Problem 02/09/2016 [facility] Malignant Problem Resolve 2016-02-09 M emoria tumor of d 02:42:34 l breast Hill (disorder) Malignant tumor of breast (disorder) Resolved Problem 02/09/2016 [facility] Bipolar Problem Resolve 2016-02-09 Mem oria disorder d 02:42:34 l (disorder) Bipolar Her donis disorder (disorder) Resolved Problem 02/09/2016 [facility] FX UNSP Diagnosis Active 2016-02-10 Me moria PART OF 22:09:00 l NECK OF L FX UNSP Herm karen FEMUR, PART OF SUBS FO NECK OF L FEMUR, SUBS FO Active [facility] Allergies, Adverse Reactions, Alerts Allergy Allergy Status Severity Reaction(s) Onset Inactive Treating Comm ents Source Name Type Date Date Clinician Pollen Adverse Active Info Not [facility] Reaction Available [facility] Social History Social Habit Start Date Stop Date Quantity Comments Source Social History 2016-02-03 2016-02-03 [facility] Monica rogers 04:29:13 04:29:13 Medications Ordered Filled Start Stop Current Ordering Indication Dosage Frequency Signature Comments Components Source Medication Medication Date Date Medication? Clinician (SIG) Name Name Fluticasone Fluticasone Yes Mary [address] [facility] Propionate Propionate 2-17 Millender in each [facility] 00:00: nostril Memoria 00 [facility] ent Clinics Albuterol Albuterol Yes Mary [address] [facility] Sulfate HFA Sulfate HFA 2-17 Millender needed [facility] 00:[facility]: Memoria 00 [facility] ent Clinics tramadol 2015-03 Yes 50 mg = 1 Ricardo she hydrochlori 2-05 tab, PO, l de 50 MG 21:05: Q6George Mix n Oral Tablet 00 PRN Pain Score 6-10, # 30 tab, 0 Refill(s) Ergocalcife 2015-03 Yes 50,000 Ricardo she rol 03591 2-05 IntlUnit = l UNT Oral 21:05: 1 cap, PO, Her donis Capsule 00 Q7D, # 8 cap, 0 Refill(s) Docusate 2015-03 Yes 100 mg = 1 Mem oria Sodium 100 2-05 cap, PO, l MG Oral 21:05: BID, # 60 Alanna nn Capsule 00 cap, 0 Refill(s) cholecalcif 2015-03 Yes 2,000 Memor ia duy 2000 2-05 IntlUnit = l intl units 21:05: 1 cap, PO, H ermann oral 00 Daily, # capsule 30 cap, 0 Refill(s) calcium-vit 2015-03 Yes 1 tab, PO, Memoria washburn D 600 2-05 BID, # 60 l mg-200 21:05: cap, 0 Milton units oral 00 Refill(s) tablet 0.4 ML 2015-03 Yes 40 mg, Memoria Enoxaparin 2-05 SUB-Q, l sodium 100 21:05: Daily, X Her donis MG/ML 00 21 day, # Prefilled 840 mg, 0 Syringe Refill(s) [Lovenox] 2015-03 No 1 tab, Memoria Multivitami 2-05 Route: PO, l ns with 15:00: Drug Form: Herm karen Folic Acid 00 TAB, 0.8 mg oral Dosing tablet Weight 56.818, kg, Daily, Start date: 02/06/16 9:00:00 [employer] MAN, Duration: 30 day, Stop date: 03/06/16 9:00:00 [employer] Nexium 2015-03 No 40 mg, Memoria 205 Route: PO, l 15:00: Drug form: [place] 00 ECCAP, Daily, Dosing Weight 56.818, kg, Start date: 02/06/16 9:00:00 [employer] CREAM MAN, Duration: 30 day, Stop date: 03/06/16 9:00:00 [employer] Lexapro 2015-03 No Notes: Memoria 2-05 (Same as: l 15:00: Lexapro) [place] 00 Thyroxine 2015-03 No Notes: Memori a 2-05 Take 1 l 12:30: hour Hill 00 before or 2 hours after meal; Enteral feeds may interefere with the absorption of this medication . (Same as: Levothroid ) Trazodone 2015-03 No Notes: Memori a Hydrochlori 2-05 (Same As: l de 100 MG 03:00: Desyrel) Herm karen Oral Tablet 00 topiramate 2015-03 No Notes: Memor ia 2-04 (Same As: l 23:00: Topamax) [place] 00 "Do Not Crush" Cymbalta 2015-03 No Notes: Memoria 2-04 (Same as: l 23:00: Cymbalta) Hill 00 (Do Not Crush) Protonix 2015-03 No Notes: Memoria 2-04 Tablet l 22:30: should not [place] 00 be chewed or crushed. (Same as: Protonix) Sodium 2015-03 No 500 mL, Memoria Chloride 2-03 500 ml/hr, l 0.154 15:43: Infuse Hill MEQ/ML 00 Over: 1 Injectable hr, Route: Solution IV, 500, Drug form: INJ, ONCE, Priority: STAT, Dosing Weight 56.818 kg, Start date: 02/04/16 9:43:00 ICE CREAM MAN, Duration: 1 doses or times, Stop date: 02/04/16 9:43:00 ICE CREAM MAN calcium-vit 2015-03 No Notes: Ricardo she washburn D 04-06 (Same As: l 15:00: Caltrate [place] 00 600 with D) ergocalcife 2015-03 No Notes: Ricardo she rol 04-06 (Same as: l 15:00: Vitamin D) [place] 00 "Do Not Crush" Calcium 2015-03 No 500 mg, Memoria Carbonate 04-06 Route: PO, l 15:00: Drug form: [place] 00 TAB, BID, Dosing Weight 56.818, kg, Start date: 02/04/16 9:00:00 ICE CREAM MAN, Duration: 30 day, Stop date: 03/04/16 17:00:00 ICE CREAM MAN Docusate 2015-03 No Notes: Memoria 2- (Same as: l 15:00: Colace) [place] (Do Not Crush) Cholecalcif 2015-03 No Notes: Ricardo she duy 2000 - Same as : l UNT Oral 15:00: Vitamin D3 Her donis Tablet 00 Calcium 2015-03 No 1 tab, Memoria Carbonate 04-06 Route: PO, l 1500 MG / 15:00: Dosing George n Cholecalcif 00 Weight duy 400 56.818, UNT Oral kg, BID, Tablet Start date: 02/04/16 9:00:00 ICE CREAM MAN, Duration: 30 day, Stop date: 03/04/16 17:00:00 [employer] CRE[employer] MAN Enoxaparin 2015-03 No Notes: Memor ia 2-03 (Same as: l 14:20: Lovenox) [place] 00 ceFAZolin 2015-03 No Notes: Memori a (SCIP) 2- Same as: l 10:00: Ancef Acetaminoph 2015-03 No Notes: Max Memoria en 04-06 acetaminop l 05:00: hen 4000 [place] 00 mg/day (4 gm/day). (Same as: Tylenol Extra Strength) celecoxib 2015-03 No Notes: Memori a 04-06 NSAID. l 05:00: Please Hill 00 check indication . Not for seizure. (Same As: CeleBREX) gabapentin 2015-03 No Notes: Memor ia 04-06 (Same as: l 05:00: Neurontin) Tramadol 2015-03 No Notes: Not Mem oria 04-06 to exceed l 05:00: 400mg/day. Milton 00 (Same As: Ultram) Ondansetron 2015-03 No Notes: Ricardo she 04-06 (Same as: l 04:18: Zofran) MEDICATION WASTE Product Size: 4 mg Product Wasted: ___ mg Lorazepam 2015-03 No Notes: Memori a - (Same as: l 04:18: Ativan) Diphenhydra 2015-03 No Notes: Ricardo she mine 04-06 (Same as: l 04:18: Benadryl) Trazodone 2015-03 No Notes: Memori a 04-06 (Same As: l 04:18: Desyrel) [place] 00 Al 2015-03 No Notes: Memoria hydroxide/M 04-06 (aluminum l g 04:18: hydroxide- Milton hydroxide/s 00 magnesium imethicone hyd-simeth 200 mg-200 icone mg-20 mg/5 200-200-20 mL oral mg/5ml 30 suspension ml ud MIRIAM) Oxycodone 2015-03 No 10 mg, Memori a Hydrochlori 04-06 Route: PO, l de 5 MG 04:18: Drug form: Herm karen Oral Tablet 00 TAB, Q4H, Dosing Weight 56.818, kg, PRN Pain Score 7-10, Start date: 02/03/16 22:18:00 ICE CREAM MAN, Duration: 30 day, Stop date: 03/04/16 22:17:00 ICE CREAM MAN Morphine 2015-03 No Notes: Memoria 2- (Same l 04:18: as:MORPhin [place] 00 e Sulfate) Bisacodyl 2015-03 No Notes: Memori a 2- (Same As: l 04:18: Dulcolax, Milton 00 Bisco-Lax) Methocarbam 2015-03 No Notes: Ricardo she ol 04-06 (Same l 04:18: as:Robaxin [place] 00 ) Calcium 2015-03 No 1,000 mL, Memor ia Chloride 04-06 Rate: 25 l 0.0014 00:33: ml/hr, Hill MEQ/ML / 00 Infuse Potassium over: 40 Chloride hr, Route: 0.004 IV, Dosing MEQ/ML / Weight Sodium 56.818 kg, Chloride Total 0.103 Volume: MEQ/ML / 1,000, Sodium Start Lactate date: 0.028 02/03/16 MEQ/ML 18:33:00 Injectable ICE CREAM MAN, Solution Duration: 30 day, Stop date: 03/04/16 18:32:00 ICE CREAM MAN remove 2015-03 No Notes: Memoria patch -02 Remove l 15:00: patch 12 Hill 00 hours after applicatio n each day. Thyroxine 2015-03 No Notes: Memori a - Take 1 l 12:30: hour [place] 00 before or 2 hours after meal; Enteral feeds may interefere with the absorption of this medication . (Same as: Levothroid ) Cholecalcif 2015-03 Yes 1 tab, PO, Memoria duy 400 2-02 Daily, 0 l UNT / Folic 08:05: Refill(s) H ermann Acid 1 MG / 00 pyridoxine 2 MG / Riboflavin 1.7 MG / Vitamin B 12 0.008 MG Chewable Tablet Vitamin B12 2015-03 Yes PO, Daily, Memoria 2-02 0 l 07:52: Refill(s) [place] 00 Trazodone 2015-03 Yes 100 mg = 1 Me moria Hydrochlori 2-02 tab, PO, l de 100 MG 07:52: Bedtime, # He rmann Oral Tablet 00 30 tab, 0 Refill(s) topiramate 2015-03 Yes 100 mg = 1 M emoria 100 mg oral 2-02 tab, PO, l tablet 07:52: BID, # 30 George n 00 tab, 3 Refill(s) duloxetine 2015-03 Yes 60 mg = 1 Me moria 60 MG 2-02 cap, PO, l Enteric 07:52: BID, # 30 Alanna nn Coated 00 cap, 0 Capsule Refill(s) [Cymbalta] Esomeprazol 2015-03 Yes 40 mg = 1 M emoria e 40 MG 2-02 cap, PO, l Enteric 07:52: Daily, # George n Coated 00 30 cap, 0 Capsule Refill(s) [Nexium] Escitalopra 2015-03 Yes 20 mg = 1 M emoria m 20 MG 2-02 tab, PO, l Oral Tablet 07:52: Daily, # He rmann [Lexapro] 00 30 tab, 0 Refill(s) levothyroxi 2015-03 Yes 150 Memori a ne 150 mcg 2- microgram l (0.15 mg) 07:52: = 1 tab, Herm karen oral tablet 00 PO, Daily, # 30 tab, 0 Refill(s) Morphine 2015-03 No Notes: Memoria 04-05 (Same l 04:07: as:MORPhin [place] 00 e Sulfate) Ondansetron 2015-03 No Notes: Ricardo she 04-05 (Same as: l 04:07: Zofran) Hill MEDICATION WASTE Product Size: 4 mg Product Wasted: ___ mg Acetaminoph 2015-03 No Notes: Do M emoria en 04-05 not exceed l 04:07: 4 gm/day. Hill (Same as: Tylenol) Sodium 2015-03 No 250 mL, Memoria Chloride 04-05 Route: l 0.9% IV 03:35: IVPB, Milton Start date: 02/02/16 21:35:00 ICE CREAM MAN, Duration: 30 day, Stop date: 03/03/16 21:34:00 ICE CREAM MAN, PRN Line Flush BD Normal 2015-03 No Notes: Memori a Saline 04-05 (Same as: l Flush 03:35: BD Hill 00 Posiflush) Acetaminoph 2015-03 No Notes: Max Memoria en 04-05 acetaminop l 03:00: hen 4000 [place] 00 mg/day (4 gm/day). (Same as: Tylenol Extra Strength) Tramadol 2015-03 No Notes: Not Mem oria - to exceed l 03:00: 400mg/day. (Same As: Ultram) Lidocaine 2015-03 No Notes: Memori a Hydrochlori 04-05 Apply only l de 0.05 03:00: once for George n MG/MG 00 up to 12 Transdermal hours in a Patch 24-hour [Lidoderm] period (12 hours on and 12 hours off). (Same as: Lidoderm) "Remove old patch before applicatio n of new patch" Cefazolin 2015-03 No Notes: Memori a 2-02 Same as: l 03:00: Ancef Oxycodone 2015-03 No Notes: Memori a Hydrochlori 04-05 (Same as: l de 1 MG/ML 02:59: 'Roxicodon H ermann Oral 00 e) Solution Dilaudid 2015-03 No 0.5 mg, Memori a 2-02 0.5 mL, l 02:42: Route: IVP, Drug form: INJ, ONCE, Dosing Weight 68.182, kg, Priority: STAT, Start date: 02/02/16 20:42:00 ICE CREAM MAN, Stop date: 02/02/16 20:42:00 [employer] CREAM MAN Dilaudid 2015-03 No 0.5 mg, Memori a 2-02 0.5 mL, l 00:50: Route: IVP, Drug form: INJ, ONCE, Dosing Weight 68.182, kg, Priority: STAT, Start date: 02/02/16 18:50:00 ICE CREAM MAN, Stop date: 02/02/16 18:50:00 [employer] CREAM MAN Zofran 2015-03 No Notes: Memoria - (Same as: l 00:50: Zofran) MEDICATION WASTE Product Size: 4 mg Product Wasted: ___ mg Cymbalta Cymbalta Yes Mary [address] [facility] Trazodone Trazodone Yes Mary [address] [facility] HCl HCl Millender at bedtime [facility] Lamictal Lamictal Yes Mary [address] [facility] Levothyroxi Levothyroxi Yes Mary [address] [facility] ne Sodium ne Sodium Millender in the [facility] on Memoria an empty l stomach Outpati ent Clinics Biotin Biotin Yes Mary [address] [facility] CarBAMazepi CarBAMazepi Yes Mary as [facility] ne ER ne ER Millender directed Luke s - (Antipsych) (Antipsych) M emoria l [facility] Yes Mary [address] [facility] [place] Yes Mary [address] [facility] Carbonate Carbonate Millender at bedtime [facility] Omeprazole Omeprazole Yes Mary [address] [facility] Vital Signs Vital Name Observation Time Observation Value Comments Source Heart Rate 2016-02-06 18:00:00 [facility] Respitory Rate 2016-02-06 18:00:00 Memori al [place] Systolic (mm Hg) 2016-02-06 18:00:00 Ricardo rial [place] Diastolic (mm Hg) 2016-02-06 18:00:00 Mem orial [place] Temperature Oral (F) 2016-02-06 18:00:00 98.4 F [facility] [place] Respitory Rate 2016-02-06 14:00:00 Memori al [place] Systolic (mm Hg) 2016-02-06 14:00:00 Ricardo rial [place] Diastolic (mm Hg) 2016-02-06 14:00:00 Mem orial [place] Heart Rate 2016-02-06 14:00:00 [facility] [place] Temperature Oral (F) 2016-02-06 14:00:00 98.1 F [facility] [place] Systolic (mm Hg) 2016-02-06 11:10:00 Ricardo rial [place] Diastolic (mm Hg) 2016-02-06 11:10:00 Mem orial [place] Temperature Oral (F) 2016-02-06 11:10:00 98.3 F [facility] [place] Heart Rate 2016-02-06 11:10:00 [facility] [place] Respitory Rate 2016-02-06 11:10:00 Paris al [place] BMI Calculated 2016-02-03 04:15:00 Paris Flores Height 2016-02-03 04:15:00 162[facility] Weight 2016-02-03 04:15:00 Gil Alejandre Height 2016-02-03 02:43:00 160.02 cm Gil Alejandre BMI Calculated 2016-02-03 02:43:00 Paris Flores Weight 2016-02-03 02:43:00 Gil Alejandre Weight 2016-02-02 22:53:00 Gil Alejandre Procedures Procedure Date / Time Performed Performing Clinician Tomasa montoya Hysterectomy<sup>1</sup> Memoria l [place] Knee [facility] replacement<sup>2</sup> Mastectomy of left breast Memvaibhav al [place] Mastectomy of right Gil donis breast Encounters Start End Encounter Admission Attending Care Care Encounter Source Date/Time Date/Time Type Type Clinicians Facility Department ID 2019-12-10 2019-12-10 Outpatient [facility] [id number] [facility] 2019-12-04 2019-12-04 Outpatient [facility] [id number] [facility] 2019-12-01 2019-12-01 Orders Doctor ODALIS [id number] 00:00:00 00:00:00 Only Unassigned, TERESA [id number] [place] [facility] [id number] 2019-12-01 2019-12-01 [facility] [id number] 2019-12-01 2019-12-01 [facility] [id number] [facility] 2019-11-10 2019-11-10 [facility] [id number] [facility] 14:30:00 14:30:00 [facility] Medicine Outpati ent Clinics 2019-11-04 2019-11-04 [facility] [id number] [facility] 10:40:00 10:40:00 [facility] Medicine Outpati ent Clinics 2019-10-06 2019-10-06 [facility] [id number] 16:20:00 16:20:00 [facility] Medicine Outpati ent Clinics 2019-08-27 2019-08-27 [facility] [id number] 16:00:00 16:00:00 t [facility] Medicine Outpati ent Clinics 2019-05-01 2019-05-01 [facility] [id number] 13:50:00 13:50:00 t [facility] Medicine Outpati ent Clinics 2019-04-24 2019-04-24 [facility] [id number] 13:53:00 13:53:00 [facility] Medicine Outpati ent Clinics 2019-04-20 2019-04-20 [facility] [id number] 10:15:00 10:15:00 [facility] Medicine Outpati ent Clinics 2019-03-27 2019-03-27 [facility] [id number] 15:15:00 15:15:00 [facility] Medicine Outpati ent Clinics 2016-02-02 2016-02-06 Outpatient Minerva Ferreira [facility] [id number] 16:47:00 16:45:00 Marianne 00 Results Test Description Test Time Test Comments Results Result Comments Source CHEM PANEL 2016-02-04 2.0 [facility] Alanna nn 11:53:00 CHEM PANEL 2016-02-04 104 [facility] Alanna nn 11:53:00 CHEM PANEL 2016-02-04 24 [facility] Alanna nn 11:53:00 CHEM PANEL 2016-02-04 11.7 [facility] Alanna nn 11:53:00 CHEM PANEL 2016-02-04 0.6 [facility] Alanna nn 11:53:00 CHEM PANEL 2016-02-04 2.3 [facility] Alanna nn 11:53:00 CHEM PANEL 2016-02-04 1.0 [facility] Alanna nn 11:53:00 CHEM PANEL 2016-02-04 4.7 [facility] Alanna nn 11:53:00 CHEM PANEL 2016-02-04 7.6 [facility] Alanna nn 11:53:00 CHEM PANEL 2016-02-04 24 [facility] Alanna nn 11:53:00 CHEM PANEL 2016-02-04 119 [facility] Alanna nn 11:53:00 CHEM PANEL 2016-02-04 0.50 [facility] Alanna nn 11:53:00 CHEM PANEL 2016-02-04 12 [facility] Alanna nn 11:53:00 CHEM PANEL 2016-02-04 143 [facility] Alanna nn 11:53:00 CHEM PANEL 2016-02-04 35 [facility] Alanna nn 11:53:00 CHEM PANEL 2016-02-04 24 [facility] Alanna nn 11:53:00 CHEM PANEL 2016-02-04 18 [facility] Alanna nn 11:53:00 CHEM PANEL 2016-02-04 2.4 [facility] Alanna nn 11:53:00 CHEM PANEL 2016-02-04 111 [facility] Alanna nn 11:53:00 CHEM PANEL 2016-02-04 3.7 [facility] Alanna nn 11:53:00 CHEM PANEL 2016-02-04 2.7 [facility] Alanna nn 11:53:00 HEMATOLOGY 2016-02-04 33.4 [facility] Alanna nn 11:53:00 HEMATOLOGY 2016-02-04 11:53:00 Test Item Value Reference Range Interpretation Comme nts MCH (test code = MCH) 28.6 pg 27.0-31.0 Memorial HdsqoehFYHTWZZKCF6057-88-20 11:53:009.5[facility] HermannHEMATOLOGY 2016-02-04 11:53:27667Kvyufzcf YgilkkbJEDHZAYPBZ4209-24-79 11:53:0013.6[facility] YdceiudEIUAISAWJR0228-17-54 11:53:0025.9[facility] MifvixaPDEFARQOMI5978-58-64 11:53:0085.5[facility] PfdoaqkAJXVBCTXHV2002-81-40 11:53:008.6[facility] [place] KVZWMFLBBT1550-37-23 11:53:008.3[facility] KtapugfOUCKFVOBWV2254-60-14 11:53:00 3.02[facility] KkimkxtXXJPTZIHFC6502-90-31 11:53:006.1[facility] HermannHEMATOLOGY 2016-02-04 11:53:000.7[facility] QiivuurJSQXRWNBKL7558-90-44 11:53:001.4[facility] GgcceveHIIXWONRRF9086-05-39 11:53:0073.4[facility] ZqssbarQUCIJJYREL8039-61-27 11:53:008.4[facility] QoavhifSSZSKITGOK4494-04-29 11:53:0017.4[facility] [place] FDZOUFENHF0209-39-93 11:53:000.2[facility] QnbxigzCUOXOABKLF3338-00-42 11:53:000.6 [facility] RFEZSFO6386-02-36 01:53:00Negative (02/03/16 7:53 PM) [facility] HermannCHEM XFCSM5811-02-55 10:28:00<10[facility] HermannCHEM PANEL 2016-02-03 10:28:0071[facility] HermannCHEM WQKLX2801-42-81 10:28:0069[facility] ZouezshZQUIIKDOEYVD7121-74-60 03:01:008.8[facility] IzwhixiTCIVVZVDRUPT3551-06-84 03:01:0099[facility] XiepfemBGSXYBDJCQHF0898-26-28 03:01:0028[facility] KWMBLIXQOZVP7101-56-33 03:01:003.8[facility] BmizwccWXONASVNQVIG7326-76-83 03:01:00010Rnrskmiu VlbljtzVLQNSKFXXXGR1397-42-40 03:01:0016[facility] UEHYKSBZCSFS7282-39-42 03:01:000.58[facility] LebbscnEOIBVJJETRMU7443-92-19 03:01:71284Xednfrld FupahufKYFIGHTGYPSX7169-44-62 03:01:008.8[facility] [place] BUDVRZPJWYUW2030-18-65 03:01:72401Bgbqehan RfxofljEMEWCOACLR3732-48-35 03:01:00 1.06[facility] QkqgyqaVMSSABISXO5635-34-36 03:01:00 Test Item Value Reference Range Interpretation Comments PT (test code = PT) 14.0 s 12.0-14.7 Memorial MrpbfoxSSZAYRLKZR9956-56-89 03:01:0013.8[facility] HermannHEMATOLOGY 2016-02-03 03:01:0032.3[facility] BjpquklHWEAQKOSRF0613-85-16 03:01:00 Test Item Value Reference Range Interpretation Comments MCH (test code = MCH) 28.0 pg 27.0-31.0 Memorial IlqsjqiDSEEFSLIRZ2097-62-84 03:01:0086.5[facility] HermannHEMATOLOGY 2016-02-03 03:01:008.6[facility] MngmlycGJFSRZUKQX8219-94-70 03:01:004.23[facility] NtiqmjgUUMAMDUJLN1227-79-13 03:01:0036.6[facility] VuzzssyVTQWVXZCYD8170-65-73 03:01:0011.8[facility] DpdropeVIJYCJTXRV5392-16-36 03:01:09682Zrmineex Hill HSWJVSNNBY9806-63-48 03:01:0011.8[facility] DuadrbaILQVQOQQNA3497-31-74 03:01:00 10.1[facility]orial HkdunifSNBEJFFOEE4295-89-91 03:01:001.1[facility] HermannHEMATOLOGY 2016-02-03 03:01:000.5[facility] MueaaebNQXUAROCWX2130-01-43 03:01:000.0[facility] WxohrcqNWKGBWYMUT5207-86-26 03:01:000.0[facility] HkjzjitLRLWWOEUTM1714-67-76 03:01:0085.8[facility] KtmhwwvNUWURHXNPC7222-86-59 03:01:004.5[facility] PEXVIJPVKP1620-70-23 03:01:009.6[facility] BsghzpdNZYGFVZANZ9321-01-65 03:01:000.1 Memorial OjkrnucZADPKPFEIV6565-21-26 03:01:000.0[facility]
--- OUTSIDE RECORDS SUMMARY | 2020-01-14 14:12 | XMS REPORT ---
:1955 Author Organization [facility] Address [address] [place] [address] Care Team Providers Name Role Phone Millender Unavailable [phone] PROBLEMS Type Condition ICD9-CM ISK73-CG Onset Condition SNOMED Code Notes Code Code Dates Status Problem Sinus problem J34.9 Active Problem Migraines G43.909 Active 08098603 Problem Cancer C80.1 Active 69179982 Problem Gastroesophageal K21.9 Active 936643687 reflux disease, esophagitis presence not specified Problem Coarse tremors G25.2 Active 47921761 Located at hands/arms /head. Problem Acquired E03.9 Active 596410651 hypothyroidism Problem Memory problem R41.3 Active 948237548 Problem Osteoporosis M81.0 Active 67278635 Problem Bipolar disorder F31.9 Active 84197829 Problem Asthma J45.909 Active 313495252 Problem GERD K21.9 Active 063304936 (gastroesophageal reflux disease) Problem Bipolar affective F31.9 Active 15381267 disorder, remission status unspecified Problem Anxiety F41.9 Active 43546096 Problem Pain in left foot M79.672 Active 02724205466951 7 Problem Pain in right M79.671 Active 62736381167765908 foot Problem Swelling R60.9 Active 05181515 Located at feet/ankle s/distal BLEs. Problem Acute pain of M25.561 Active 68059139 right knee Problem Seasonal J30.2 Active 467045484 allergies Problem Primary M17.11 Active 546260130169075 osteoarthritis of right knee Problem Thyroid disease E07.9 Active 15635695 Problem Depression with F41.8 Active 124448843 anxiety Problem History of left Z96.652 Active 618575468 knee replacement Problem Intractable R51 Active 23312816 Worsening. headache, unspecified chronicity pattern, unspecified headache type Problem Right knee pain, M25.561 Active 41614080 unspecified chronicity Problem Paresthesia of R20.2 Active 021631321 Describ ed right foot as tingling of right foot. ALLERGIES Allergen (clinical Drug/Non Drug Reaction Allergy Type Onset Date S tatus drug ingredient) Allergy documented on EMR codeine Unknown Non Drug Allergy Active Pollen Unknown Non Drug Allergy Active ENCOUNTERS from 1955 to 2019-12-07 Encounter Location Date Provider Diagnosis [facility] [address] [facility] [address], [place] [address] IMMUNIZATIONS No Information SOCIAL HISTORY Tobacco Use: [...] for 30 day(s) Sumatriptan Succinate Not-Ta rona [place] Carbonate 300 MG 1 capsule at bedtime Active Orally Once a day Lamictal 100 mg 1 tablet Orally Once a Ac tive day in evening Meloxicam 7.5 MG 1 tablet Orally Once a Nov, Dec, A ctive day for 30 day(s) Omeprazole 40 MG 1 capsule Orally Once Ac tive a day for 90 days Biotin 41370 MCG 1 tablet Orally Once a A [...] Information RESULTS No Results REASON FOR VISIT Refills MEDICAL (GENERAL) HISTORY Type Description Date Medical [...] Name:Mary Viv, 2019-12-0 1 03:40:00 PM, [address] [facility], [address], [place], [address], Insurance Providers Payer Name Payer Address Payer Insured Patient Coverage Cover age End Phone Name Relationship to Start Date Kranthi e Insured [employer] [address] [address] [phone] Tiara Stokes [place] [id number]
--- OUTSIDE RECORDS SUMMARY | 2020-01-14 14:12 | XMS REPORT | Summary of Care ---
:1955 Author Organization [facility] - Health Address [address] [place] [id number] Care Team Providers Name Role Phone Dell Callaway MD Primary Care Provider Encounter Details Date Type Department Care Team Description 12/01/2019 Orders Only [facility] Doctor Unassigned, No [address] [facility] [place] [address] [address] [place] [address] Allergies Active Allergy Reactions Severity Noted Date Comments Codeine Other - See comments 10/14/2014 hyperac tivity documented as of this encounter (statuses as of 12/07/2019) Medications Medication Sig Dispensed Refills Start Date End Date Status LEVOTHYROXINE SODIUM Take 175 mcg by 0 Active (LEVOTHYROXINE ORAL) mouth daily. DULOXETINE HCL Take 60 mg by 0 A ctive (CYMBALTA ORAL) mouth 2 (two) times daily. TOPIRAMATE (TOPAMAX Take 100 mg by 0 Active ORAL) mouth 2 (two) times daily. LITHIUM CITRATE ORAL Take 300 mg by 0 Active mouth daily. TRAZODONE HCL Take 100 mg by 0 A ctive (TRAZODONE ORAL) mouth at bedtime. escitalopram oxalate Take 20 mg by 0 Active (LEXAPRO) 20 mg tablet mouth daily. Dexlansoprazole Take 60 mg by 0 Active (DEXILANT) 60 mg mouth daily. capsule esomeprazole (NEXIUM) Take 1 capsule by 14 capsule 0 7 Active 40 mg capsule mouth daily with breakfast. levothyroxine 200 mcg Take 200 mcg by 0 Active tablet mouth every morning. Biotin 10,000 mcg Cap Take 1 capsule by 0 Active mouth daily. multivitamin, Take 1 tablet by 0 Active tx-minerals (COMPLETE mouth daily. MULTIVITAMIN) tablet traMADOL (ULTRAM) 50 Take 1 tablet by 20 tablet 0 02/02/2017 Active mg tablet mouth every 6 (six) hours as needed for Pain (scale 4-6). HYDROcodone-acetaminop 1/2 - 1 Q4h PRN 20 tablet 0 04/19/2017 Active hen 5-325 mg pain or cough tabletIndications: requiring Cough Narcotic inhalational spacing May substitute 1 Each 0 04/19/2017 Active deviceIndications: other spacing Cough device gabapentin 300 mg Take 600 mg by 0 Active capsule mouth daily. documented as of this encounter (statuses as of 12/07/2019) Active Problems No known active problemsdocumented as of this encounter (statuses as of 12/07/2019) Social History Tobacco Use Types Packs/Day Years Used Date Never Smoker Smokeless Tobacco: Never Used Alcohol Use Drinks/Week oz/Week Comments No 0 Standard drinks or equivalent 0.0 Sex Assigned at Date Recorded Not on file documented as of this encounter Last Filed Vital Signs Not on filedocumented in this encounter Plan of Treatment Health Maintenance Due Date Last Done Comments HEPATITIS C (HCV) SCREEN 1955 Depression Screening 1965 DTaP,Tdap,and Td Vaccines (1 - Tdap) 1972 Breast Cancer Screening (MAMMOGRAM) 1993 COLON CANCER SCREENING ANNUAL FIT/FOBT 09/21/2003 COLON CANCER SCREENING FIT DNA EVERY 3 YEARS 09/21/2003 COLON CANCER SCREENING SIGMOIDOSCOPY EVERY 5 YEARS 09/21/2003 COLONOSCOPY 09/21/2003 Colorectal Cancer Screening 09/21/2003 Zoster Recombinant Vaccine (SHINGRIX) (1 of 2) 09/21/2003 Medicare Wellness Visit 2018 Osteoporosis Screening 2018 PNEUMOCOCCAL VACCINES 65+ (1 of 1 - PPSV23) 2018 INFLUENZA VACCINE (#1) 2019 documented as of this encounter Implants Implanted Type Area Project Surveyor Device Shelf Model / Identifier Expiration Date Ser ial / Lot Acrysof Iq LENS Left: Eye Fidencio 01/31/2021 [id number] / Implanted: Qty: 1 on 11/21/2016 by William Herrera MD at [facility] 1 [id number] / [id number] documented as of this encounter Procedures Procedure Name Priority Date/Time Associated Diagnosis Comme nts AUTHORIZATION FOR RELEASE Routine 12/01/2019 12:01 AM OF PHI CDT documented in this encounter Results Not on filedocumented in this encounter Insurance Payer Benefit Plan / Subscriber ID Effective Phone Address T ype Group Dates MEDICARE MEDICARE PART [id number] 2000-Pres [phone] Medicare A & B ent [id number] MICHAEL KURTZ [phone] [facility] [id number] 2014-Pres PPO/PO [facility]LY [facility] ent PPO/POS documented as of this encounter
--- OUTSIDE RECORDS SUMMARY | 2020-01-14 14:12 | XMS REPORT ---
:1955 Author Organization [facility] Address [address], [address] [place] [address] Care Team Providers Name Role Phone Sheridan Unavailable [phone] PROBLEMS Type Condition ICD9-CM OOM28-XD Onset Condition SNOMED Code Notes Code Code Dates Status Problem Sinus problem J34.9 Active Problem Migraines G43.909 Active 70277450 Problem Cancer C80.1 Active 29537945 Problem Gastroesophageal K21.9 Active 730780467 reflux disease, esophagitis presence not specified Problem Coarse tremors G25.2 Active 04874482 Located at hands/arms /head. Problem Acquired E03.9 Active 708307674 hypothyroidism Problem Memory problem R41.3 Active 794812635 Problem Osteoporosis M81.0 Active 21491402 Problem Bipolar disorder F31.9 Active 14374531 Problem Asthma J45.909 Active 411801285 Problem GERD K21.9 Active 060604931 (gastroesophageal reflux disease) Problem Bipolar affective F31.9 Active 18975272 disorder, remission status unspecified Problem Anxiety F41.9 Active 89542247 Problem Pain in left foot M79.672 Active 80451086702043 7 Problem Pain in right M79.671 Active 54285101199612203 foot Problem Swelling R60.9 Active 64471833 Located at feet/ankle s/distal BLEs. Problem Acute pain of M25.561 Active 96865632 right knee Problem Seasonal J30.2 Active 247661959 allergies Problem Primary M17.11 Active 855935769141772 osteoarthritis of right knee Problem Thyroid disease E07.9 Active 82746783 Problem Depression with F41.8 Active 063212053 anxiety Problem History of left Z96.652 Active 423782981 knee replacement Problem Intractable R51 Active 74263357 Worsening. headache, unspecified chronicity pattern, unspecified headache type Problem Right knee pain, M25.561 Active 36095967 unspecified chronicity Problem Paresthesia of R20.2 Active 908756896 Describ ed right foot as tingling of right foot. ALLERGIES Allergen (clinical Drug/Non Drug Reaction Allergy Type Onset Date S tatus drug ingredient) Allergy documented on EMR codeine Unknown Non Drug Allergy Active Pollen Unknown Non Drug Allergy Active ENCOUNTERS from 1955 to 2019-12-14 Encounter Location Date Provider Diagnosis [facility] [address] Dec, William kimble osteoarthritis [facility] [place] of right [facility] e M17.[address] [place], [place] and Pain, joint , knee, [id number] right M25.561 IMMUNIZATIONS Vaccine Route Administration Date Status Bupivicaine [place] Unknown Dec 10, 2019 Administered Kenalog (Triamcinolone) Unknown Dec 10, 2019 Administ ered SOCIAL HISTORY Tobacco Use: Social History Observation [...] No Information VITAL SIGNS Height 65 in Dec, Weight 155 lbs Dec, BMI 25.79 kg/m2 Dec, Blood pressure systolic 132 mm Hg Dec, Blood pressure diastolic 60 mm Hg Dec, MEDICATIONS Medication SIG (Take, Route, Start Date End Date Status Frequency, Duration) Lamotrigine Active Propranolol HCl Active 28-0.8 MG 1 tablet Orally Once a Active day for 30 day(s) [place] Carbonate 300 MG 1 capsule at bedtime Active Orally Once a day CarBAMazepine ER as directed Orally Not-T aking (Antipsych) 100 MG Levothyroxine Sodium 125 1 tablet in the Active MCG morning on an empty stomach Orally Once a day for 90 days Trazodone HCl 100 MG 1 tablet at bedtime Active Orally Once a day Albuterol Sulfate HFA 108 2 puffs as needed Apr, Active (90 Base) MCG/ACT Inhalation every 4-6 hrs for 30 days Omeprazole 40 MG 1 capsule Orally Once Ac tive a day for 90 days Biotin 80731 MCG 1 tablet Orally Once a A ctive day for 30 day(s) Fluticasone Propionate 50 2 sprays in each Apr, Active MCG/ACT nostril Nasally Once a day for 30 day(s) Meloxicam 7.5 MG 1 tablet Orally Once a Nov, Dec, A ctive day for 30 day(s) Cymbalta 60 MG 1 capsule Orally Once Not- Taking a day Sumatriptan Succinate Not-Ta rona Duloxetine HCl Active Lamictal 100 mg 1 tablet Orally Once a Ac tive day in evening PROCEDURES No Information RESULTS No Results REASON FOR VISIT F/U RIGHT KNEE PAIN: KENALOG INJECTION MEDICAL (GENERAL) HISTORY Type Description Date Medical [...] No Information ASSESSMENTS Encounter Date Diagnosis Notes Dec, Pain, joint, knee, right (ICD-10 - M25.5 61) Dec, Primary osteoarthritis of right knee (IC D-10 - M17.11) PLAN OF TREATMENT Treatment Notes Assessment Notes Clinical Notes Primary osteoarthritis of right knee I discussed with the tanna devi at length her diagnosis and treatment plan and she expressed understanding. We will proceed with conservative treatment at this time. We discussed weight management, strengthening exercises, NSAIDs use, and corticosteroid/viscosupplementatio n injections. She underwent right knee kenalog injection without complication. She will ice and rest the knee for 24 hours. We discussed Mobic and she will take it with food. Next Appt Details 6 Weeks Reason: Provider Name:William Sheridan, 2020-01-21 1 1:00:00 AM, [address] [facility] , [address], [place], [address], Provider Name:Mary Nam, 1 03:40:00 PM, [address], [address], [place], [address], Insurance Providers Payer Name Payer Address Payer Insured Patient Coverage Cover age End Phone Name Relationship to Start Date Kranthi e Insured [employer] [address] [address] [phone] Tiara Stokes self MEDICARE [place] [address] [phone]
[2020-01-14 15:13] LABS: Absolute Lymphocytes (CBC) 2.6 K/uL (0.7-4.9); Basophils % 0.3 % (0-1.3); Lymphocytes % 26.5 % (15.3-44.8); MPV 8.7 fL (7.6-11.3); RBC Red Blood Cell Count 4.49 M/uL (3.86-4.86)
[2020-01-14 15:15] LABS: Protime INR 0.92
[2020-01-14 15:24] LABS: ALT/SGPT 32 U/L (12-78); AST/SGOT 20 U/L (15-37); Albumin 3.8 g/dL (3.4-5.0); Alkaline Phosphatase 119 U/L (45-117); BUN Blood Urea Nitrogen 18 mg/dL (7-18); Bicarbonate 29 mmol/L (21-32); Bilirubin Direct 0.1 mg/dL (0-0.2); Bilirubin Total 0.3 mg/dL (0.2-1.0); Glucose Level 93 mg/dL (74-106); Magnesium 2.1 mg/dL (1.8-2.4); NT PRO-BNP 395 pg/mL (<125); Potassium 3.5 mmol/L (3.5-5.1); Protein, Total 6.8 g/dL (6.4-8.2); Sodium Level 142 mmol/L (136-145); Troponin (Emerg Dept Use Only) < 0.02 ng/mL (0.0-0.045)
--- NOTE | 2020-01-14 15:37 | RAD REPORT ---
EXAM DESCRIPTION: Barry Single View01/14/2020 3:28 pm CLINICAL HISTORY: sob COMPARISON: 2014 FINDINGS: The lungs appear clear of acute infiltrate. The heart is borderline enlarged IMPRESSION: No acute abnormalities displayed
--- NOTE | 2020-01-14 16:21 | EDPHYS ---
Physician Documentation [facility] Name: Tiara Stokes Age: 64 yrs Sex: Female : 1955 Arrival Date: 01/14/2020 Time: 13:50 Bed 4 Private MD: ED Physician Saul Martinez HPI: 01/13 16:12 This 64 yrs old Female presents to ER via Ambulatory with complaints of Chest kdr Pressure, Shortness Of Breath. 16:12 The patient or guardian reports chest pain that is located primarily in the anterior kdr chest wall, bilaterally. Onset: gradually, 1 week(s) ago. The pain does not radiate. Associated signs and symptoms: Pertinent positives: cough, nausea, shortness of breath, Pertinent negatives: diaphoresis, dizziness, headache, recent travel, syncope. The chest pain is described as aching, dull, a pressure, mostly with coughing. Duration: The patient or guardian reports multiple episodes, that are intermittent, that wax and wane, with no pattern, Mostly with coughing. Severity of pain: At its worst the pain was very mild in the emergency department the pain is unchanged. The patient has not experienced similar symptoms in the past, The patient has experienced a previous episode, The patient has experienced similar episodes in the past, a few times, It is unknown whether or not the patient has had similar symptoms in the past. The patient has not recently seen a physician. Historical: - Allergies: 14:04 No Known Allergies; hb - Immunization history:: Adult Immunizations up to date. - Social history:: Smoking status: Patient denies any tobacco usage or history of. ROS: 16:12 Constitutional: Negative for fever, chills, and weight loss, Eyes: Negative for injury, kdr pain, redness, and discharge, ENT: Negative for injury, pain, and discharge, Neck: Negative for injury, pain, and swelling, Abdomen/GI: Negative for abdominal pain, nausea, vomiting, diarrhea, and constipation, Back: Negative for injury and pain, : Negative for injury, bleeding, discharge, and swelling, MS/Extremity: Negative for injury and deformity, Skin: Negative for injury, rash, and discoloration, Neuro: Negative for headache, weakness, numbness, tingling, and seizure activity. Psych: Negative for depression, anxiety, suicide ideation, homicidal ideation, and hallucinations, Allergy/Immunology: Negative for hives, rash, and allergies, Endocrine: Negative for neck swelling, polydipsia, polyuria, polyphagia, and marked weight changes, Hematologic/Lymphatic: Negative for swollen nodes, abnormal bleeding, and unusual bruising. 16:12 Cardiovascular: Positive for chest pain, with cough, Negative for edema, orthopnea, palpitations, paroxysmal nocturnal dyspnea, acute changes. 16:12 Respiratory: Positive for cough, "sounds productive", dyspnea on exertion, shortness of breath, Negative for hemoptysis, orthopnea, pleurisy, wheezing. 16:12 Abdomen/GI: Positive for nausea. Exam: 16:12 Constitutional: This is a well developed, well nourished patient who is awake, alert, kdr and in no acute distress. Head/Face: Normocephalic, atraumatic. Eyes: Pupils equal round and reactive to light, extra-ocular motions intact. Lids and lashes normal. Conjunctiva and sclera are non-icteric and not injected. Cornea within normal limits. Periorbital areas with no swelling, redness, or edema. Neck: Trachea midline, no thyromegaly or masses palpated, and no cervical lymphadenopathy. Supple, full range of motion without nuchal rigidity, or vertebral point tenderness. No Meningismus. Chest/axilla: Normal chest wall appearance and motion. Nontender with no deformity. No lesions are appreciated. Cardiovascular: Regular rate and rhythm with a normal S1 and S2. No gallops, murmurs, or rubs. Normal PMI, no JVD. No pulse deficits. Abdomen/GI: Soft, non-tender, with normal bowel sounds. No distension or tympany. No guarding or rebound. No evidence of tenderness throughout. Back: No spinal tenderness. No costovertebral tenderness. Full range of motion. Skin: Warm, dry with normal turgor. Normal color with no rashes, no lesions, and no evidence of cellulitis. MS/ Extremity: Pulses equal, no cyanosis. Neurovascular intact. Full, normal range of motion. Neuro: Awake and alert, GCS 15, oriented to person, place, time, and situation. Cranial nerves II-XII grossly intact. Motor strength 5/5 in all extremities. Sensory grossly intact. Cerebellar exam normal. Normal gait. Psych: Awake, alert, with orientation to person, place and time. Behavior, mood, and affect are within normal limits. 16:12 Respiratory: the patient does not display signs of respiratory distress, Respirations: normal, Breath sounds: rales, that are mild, are scattered, are located in both bases. 16:29 ECG was reviewed by the Attending Physician. kdr Vital Signs: 14:01 BP 140 / 67; Pulse 64; Resp 16; Temp 97.9; Pulse Ox 100% on R/A; Pain 5/10; hb MDM: 16:12 HEART Score: History: Slightly Suspicious (0), ECG: Normal (0), Age: > or = 65 years kdr (2), Risk Factors: No Risk Factors Known (0), Troponin: < or = 1 x Normal Limit (0), Total Score = 2. Data reviewed: vital signs, nurses notes, lab test result(s), radiologic studies. 16:20 Patient medically screened. [facility] 01/13 14:40 Order name: Basic Metabolic Panel; Complete Time: 16:02 [facility] 01/13 14:40 Order name: CBC with Diff; Complete Time: 16:02 [facility] 01/13 14:40 Order name: LFT's; Complete Time: 16:02 [facility] 01/13 14:40 Order name: Magnesium; Complete Time: 16:02 [facility] 01/13 14:40 Order name: NT PRO-BNP; Complete Time: 16:02 [facility] 01/13 14:40 Order name: PT-INR; Complete Time: 16:02 [facility] 01/13 14:40 Order name: Troponin (emerg Dept Use Only); Complete Time: 16:02 [facility] 01/13 14:40 Order name: XRAY Chest (1 view); Complete Time: 16:02 [facility] 01/13 14:40 Order name: Cardiac monitoring; Complete Time: 15:32 [facility] 01/13 14:40 Order name: EKG - Nurse/Tech; Complete Time: 15:32 [facility] 01/13 14:40 Order name: IV Saline Lock; Complete Time: 15:32 [facility] 01/13 14:40 Order name: Labs collected and sent; Complete Time: 15:32 [facility] 01/13 14:40 Order name: O2 Per Protocol; Complete Time: 15:32 [facility] 01/13 14:40 Order name: O2 Sat Monitoring; Complete Time: 15:32 kdr EC:29 Rate is 64 beats/min. Rhythm is regular, Sinus Rhythm with No ectopy. QRS [place] is kdr Normal. AR interval is normal. QRS interval is normal. QT interval is normal. No Q waves. Clinical impression: NSR w/ Non-specific ST/T Changes. Administered Medications: No medications were administered Disposition: 01/14/20 16:20 Discharged to Home. Impression: Chest pain on breathing, Chest pain, unspecified, Bronchitis, not specified as acute or chronic. - Condition is Stable. - Discharge Instructions: Chest Wall Pain, [id number], Acute Bronchitis, [id number], Upper Respiratory Infection, Adult, [id number]. - Prescriptions for Promethazine VC- Codeine 6.25-5-10 mg/5 mL Oral syrup - take 5 milliliter by ORAL route every 4 hours As needed as needed, not to exceed 30 mL in 24 hours; 200 milliliter. - Medication Reconciliation Form, Thank You Letter, Prescription Opioid Use form. - Follow up: Private Physician; When: 2 - 3 days; Reason: If symptoms return, Further diagnostic work-up, Recheck today's complaints, Continuance of care, Re-evaluation by your physician. - Problem is new. - Symptoms have improved. Signatures: Dispatcher [employer] EDMS Saul Martinez MD MD kdr Elsie Mills RN RN iw Kellie Leyva RN RN Corrections: (The following items were deleted from the chart) 16:46 16:20 01/14/2020 16:20 Discharged to Home. Impression: Chest pain on breathing; Chest iw pain, unspecified; Bronchitis, not specified as acute or chronic. Condition is Stable. Forms are Medication Reconciliation Form, Thank You Letter, Antibiotic Education, Prescription Opioid Use. Follow up: Private Physician; When: 2 - 3 days; Reason: If symptoms return, Further diagnostic work-up, Recheck today's complaints, Continuance of care, Re-evaluation by your physician. Problem is new. Symptoms have improved. kdr
--- NOTE | 2020-01-14 16:21 | ER ---
Nurse's Notes [facility] Name: Tiara Stokes Age: 64 yrs Sex: Female : 1955 Arrival Date: 01/14/2020 Time: 13:50 Bed 4 Private MD: Diagnosis: Chest pain on breathing;Chest pain, unspecified;Bronchitis, not specified as acute or chronic Presentation: 01/13 14:01 Chief complaint: Sinus congestion with yellow mucus, nonproductive cough, headache, hb chest pressure, SOB, and malaise x 1 week. Sent from [facility], COVID NEGATIVE today. Coronavirus screen: Client presents with at least one sign or symptom that may indicate coronavirus-19. Standard/surgical mask placed on the client. Provider contacted for isolation considerations. The client reports previous COVID testing was negative. Date of collection: January 14, 2020. Ebola Screen: No symptoms or risks identified at this time. Initial Sepsis Screen: Does the patient meet any 2 criteria? No. Patient's initial sepsis screen is negative. Does the patient have a suspected source of infection? No. Patient's initial sepsis screen is negative. Risk Assessment: Do you want to hurt yourself or someone else? Patient reports no desire to harm self or others. Onset of symptoms was January 07, 2020. 14:01 Method Of Arrival: Ambulatory hb 14:01 Acuity: MELANIE 3 hb Historical: - Allergies: 14:04 No Known Allergies; hb - Immunization history:: Adult Immunizations up to date. - Social history:: Smoking status: Patient denies any tobacco usage or history of. Screenin:00 Abuse screen: Denies threats or abuse. Denies injuries from another. Nutritional iw screening: No deficits noted. Tuberculosis screening: No symptoms or risk factors identified. Fall Risk IV access (20 points). Assessment: 15:00 General: Appears in no apparent distress. Behavior is calm, cooperative. Pain: iw Complains of pain in chest Pain does not radiate. Pain began over a week ago. Neuro: Level of Consciousness is awake, alert, obeys commands, Oriented to person, place, time, situation, Moves all extremities. Full function. Cardiovascular: Reports chest pain, shortness of breath, Patient's skin is warm and dry. Respiratory: Reports shortness of breath on exertion cough that is productive, pain with cough. 16:10 Reassessment: Patient appears in no apparent distress at this time. Patient and/or iw family updated on plan of care and expected duration. Pain level reassessed. Patient is alert, oriented x 3, equal unlabored respirations, skin warm/dry/pink. Vital Signs: 14:01 BP 140 / 67; Pulse 64; Resp 16; Temp 97.9; Pulse Ox 100% on R/A; Pain 5/10; hb ED Course: 13:50 Patient arrived in ED. rg4 14:03 Triage completed. hb 14:04 Arm band placed on. hb 14:39 Saul Martinez MD is Attending Physician. kdr 14:59 Initial lab(s) drawn, by me, sent to lab. Inserted saline lock: 20 gauge in right iw antecubital area, using aseptic technique. Blood collected. 15:00 Patient has correct armband on for positive identification. manager monitoring on. Pulse iw ox on. NIBP on. 15:26 Elsie Mills, RN is Primary Nurse. iw 15:29 XRAY Chest (1 view) In Process Unspecified. EDMS 16:43 No provider procedures requiring assistance completed. IV discontinued, intact, iw bleeding controlled, No redness/swelling at site. Pressure dressing applied. Patient maintains SpO2 saturation greater than 95% on room air. Administered Medications: No medications were administered Outcome: 16:20 Discharge ordered by . kdr 16:45 Discharged to home ambulatory, with family. iw 16:45 Condition: good 16:45 Discharge instructions given to patient, family, Instructed on discharge instructions, follow up and referral plans. medication usage, Demonstrated understanding of instructions, follow-up care, medications, Prescriptions given X 1. 16:46 Patient left the ED. iw Signatures: Dispatcher [employer] EDMS Saul Martinez MD MD kdr Elsie Mills, KIARA CRAIG Kellie Leyva RN RN Avis Sanders rg4 Corrections: (The following items were deleted from the chart) 14:04 14:01 Chief complaint: Sinus congestion with yellow mucus, nonproductive cough, hb headache, chest pressure, and malaise x 1 week. Sent from [facility], COVID NEGATIVE today. hb
[2020-01-14 20:03] VITALS: BP 140/67; TEMP 97.9; O2SAT 100
--- NOTE | 2020-01-17 07:49 | EKG ---
Test Date: 2020-01-14 Test Time: 14:09:01 Marketing Assistant Manager: HB MEASUREMENT RESULTS: Intervals: Rate: 64 CA: 132 QRSD: 72 QT: 428 QTc: 441 [place]: P: 55 CA: 132 QRS: -6 T: 10 INTERPRETIVE STATEMENTS: Normal sinus rhythm Possible Left atrial enlargement Left ventricular hypertrophy Nonspecific ST and T wave abnormality Abnormal ECG Compared to ECG 04/02/2013 19:45:32 Left ventricular hypertrophy now present ST (T wave) deviation now present Electronically Signed On 01-17-20 07:41:56 INOCULATOR by Singh Fortune
== END 2020-01-14 16:46 | disposition home or self-care (01) ==
LOC: ER 13:45
DX: J40 Bronchitis, not specified as acute or chronic (principal); R07.1 Chest pain on breathing
CPT/HCPCS: 36415; 71045; 80048; 80076; 83735; 83880; 84484; 85025; 85610; 93005; 99285

== ENCOUNTER 2020-12-04 19:13 | Observation (INO) | payer OTHER ==
--- NOTE | 2020-12-04 20:30 | RAD REPORT ---
EXAM DESCRIPTION: RAD - Chest Single View - 12/04/2020 8:09 pm CLINICAL HISTORY: SOB COMPARISON: Chest Single View dated 01/14/2020; CHEST PA AND LAT 2 VIEW dated 11/12/2014; CHEST PA AN D LAT 2 VIEW dated 04/13/2014; CHEST PA AND LAT 2 VIEW dated 02/09/2014 FINDINGS: Lines: None. Lungs: No evidence of edema or pneumonia. Pleural: No significant pleural effusions or pneumothorax. Cardiac: Mild cardiomegaly. Bones: No acute fractures. Other: IMPRESSION: No acute cardiopulmonary disease.
[2020-12-04 20:34] LABS: Absolute Lymphocytes (CBC) 2.6 K/uL (0.7-4.9); Basophils % 0.3 % (0-1.3); Hematocrit 34.4 % (36.0-45.0); Lymphocytes % 24.6 % (15.3-44.8); MPV 9.1 fL (7.6-11.3); RBC Red Blood Cell Count 4.09 M/uL (3.86-4.86)
[2020-12-04] MEDS ORDERED: ALBUTEROL 2.5 MG/3 ML NEB SOL ONE (20:49)
[2020-12-04] MEDS ORDERED: IPRATROPIUM BROM 0.5MG/2.5ML ONE (20:49)
[2020-12-04] MEDS ORDERED: METHYLPREDNISOLONE 125 MG INJ ONE (20:49)
[2020-12-04 20:50] LABS: ALT/SGPT 46 U/L (12-78); AST/SGOT 29 U/L (15-37); Albumin 3.8 g/dL (3.4-5.0); Alkaline Phosphatase 91 U/L (45-117); BUN Blood Urea Nitrogen 19 mg/dL (7-18); Bicarbonate 26 mmol/L (21-32); Bilirubin Direct < 0.1 mg/dL (0-0.2); Bilirubin Total 0.5 mg/dL (0.2-1.0); Glucose Level 99 mg/dL (74-106); NT PRO-BNP 3397 pg/mL (<125); Potassium 3.4 mmol/L (3.5-5.1); Protein, Total 6.4 g/dL (6.4-8.2); Sodium Level 141 mmol/L (136-145); Troponin (Emerg Dept Use Only) < 0.02 ng/mL (0.0-0.045)
[2020-12-04] MEDS ORDERED: FUROSEMIDE 20 MG/ 2ML VIAL ONE (21:35)
--- NOTE | 2020-12-04 21:58 | RAD REPORT ---
EXAM DESCRIPTION: US - Extrem Venous W Compress Yordy - 12/04/2020 9:41 pm CLINICAL HISTORY: Swelling COMPARISON: None. TECHNIQUE: Real-time sonographic evaluation of the bilateral lower extremity deep venous systems was performed. FINDINGS: Normal compressibility, flow augmentation, phasic flow and spontaneous flow is identified in both the left and right lower extremity deep venous systems. No intraluminal filling defects seen. IMPRESSION: No DVT in either lower extremity.
--- NOTE | 2020-12-04 22:35 | ER ---
Nurse's Notes [facility] Name: Tiara Stokes Age: 65 yrs Sex: Female : 1955 Arrival Date: 12/04/2020 Time: 19:38 Bed 19 Private MD: Diagnosis: Chest pain, unspecified Presentation: 12/04 19:39 Chief complaint: Patient states: Trouble breathing x 3-4 days, reports sob on exertion lp1 that is worsening; states chest pain; Reports no relief with nebulizer and inhalers at home. Coronavirus screen: shortness of breath. Ebola Screen: No symptoms or risks identified at this time. Risk Assessment: Do you want to hurt yourself or someone else? Patient reports no desire to harm self or others. Onset of symptoms was December 04, 2020. 19:39 Method Of Arrival: Ambulatory lp1 19:39 Acuity: MELANIE 3 lp1 19:46 Initial Sepsis Screen: Does the patient meet any 2 criteria? No. Patient's initial lp1 sepsis screen is negative. Does the patient have a suspected source of infection? No. Patient's initial sepsis screen is negative. 21:24 Note ULTRASOUND BEDSIDE. cw2 12/05 01:38 Note FULL REPORT CALLED TO CELINE CRAIG. ALL QUESTIONS ANSWERED AND NO CONCERNS VERBALIZED cw2 AT THIS TIME. PT STABLE FOR ADMISSION. Triage Assessment: 12/04 19:54 Respiratory: Onset: The symptoms/episode began/occurred onset 2 days ago. cw2 19:55 Respiratory: the patient has moderate shortness of breath. cw2 Historical: - Allergies: 19:41 Codeine; lp1 - Home Meds: 19:41 Ventolin Rotahaler/Rotacaps Inhl [Active]; lp1 - PMHx: 19:41 Breast Cancer; Myocardial infarction; Atrial fibrillation; lp1 - PSHx: 19:41 abdirizak mastectomy; L knee replacement; lp1 - Immunization history:: Adult Immunizations up to date, Client reports receiving the 2nd dose of the Covid vaccine. - Social history:: Smoking status: Patient denies any tobacco usage or history of. Screenin:46 Abuse screen: Denies threats or abuse. Denies injuries from another. Nutritional lp1 screening: No deficits noted. Tuberculosis screening: No symptoms or risk factors identified. Fall Risk None identified. Assessment: 19:53 General: Appears in no apparent distress. Behavior is calm, cooperative. Pain: Denies cw2 pain. Neuro: No deficits noted. Cardiovascular: No deficits noted. Rhythm is sinus bradycardia. Respiratory: Reports shortness of breath at rest Airway is patent Respiratory effort is even, 22:20 Reassessment: Patient appears in no apparent distress at this time. No changes from cw2 previously documented assessment. 12/05 00:00 Reassessment: Patient appears in no apparent distress at this time. No changes from cw2 previously documented assessment. Vital Signs: 12/04 19:46 BP 128 / 60; Pulse 89; Resp 18; Temp 97.3(TE); Pulse Ox 96% on R/A; Weight 75.3 kg (R); lp1 Height 5 ft. 4 in. (162.56 cm); Pain 0/10; 21:00 BP 121 / 63; Pulse 51; Resp 15; Pulse Ox 97% on R/A; cw2 22:00 BP 127 / 61; Pulse 50; Resp 17; Pulse Ox 98% on R/A; cw2 23:00 BP 132 / 75; Pulse 51; Resp 16; Pulse Ox 99% on R/A; cw2 19:46 Body Mass Index 28.49 (75.30 kg, 162.56 cm) lp1 Yandel Coma Score: 19:53 Eye Response: spontaneous(4). Verbal Response: oriented(5). Motor Response: obeys cw2 commands(6). Total: 15. ED Course: 19:38 Patient arrived in ED. bp1 19:41 Triage completed. lp1 19:46 Arm band placed on right wrist. lp1 19:52 Cali Mills, RN is Primary Nurse. cw2 19:53 Patient has correct armband on for positive identification. Bed in low position. Call cw2 light in reach. Side rails up X2. 19:53 No provider procedures requiring assistance completed. cw2 19:58 Kin Fuentes PA is PHCP. cp 19:58 Baldomero Clark MD is Attending Physician. cp 20:09 XRAY Chest (1 view) In Process Unspecified. EDMS 20:33 No apparent distress. cw2 20:33 Initial lab(s) drawn, by md, sent to lab. Inserted saline lock: 20 gauge in right cw2 wrist, using aseptic technique. Blood collected. 21:41 US Extremity Venous W Compression Abdirizak In Process Unspecified. EDMS 22:17 Influenza Screen (a \T\ B) Sent. cw2 22:34 Karissa Burton MD is Hospitalizing Provider. cp 12/05 01:02 Urine Microscopic Only Sent. cw2 01:02 Basic Metabolic Panel Sent. cw2 01:02 LFT's Sent. cw2 01:03 Magnesium Sent. cw2 Administered Medications: 12/04 20:30 Drug: SOLU-Medrol (methylPrednisoLONE) 80 mg Route: IVP; Site: right wrist; cw2 21:14 Follow up: Response: Wheezing diminished cw2 20:30 Drug: Albuterol - atroVENT (ipratropium) (3:1) (2.5 mg - 0.5 mg) 3 ml Route: Nebulizer; cw2 21:15 Follow up: Response: Wheezing diminished cw2 21:19 Drug: Lasix (furosemide) 20 mg Route: IVP; Site: right wrist; cw2 12/05 00:22 Follow up: Response: No adverse reaction cw2 00:20 Drug: Aspirin Chewable Tablet 324 mg Route: PO; cw2 00:22 Follow up: Response: No adverse reaction cw2 00:23 Follow up: Response: No adverse reaction cw2 00:20 Drug: traZODONE 100 mg Route: PO; cw2 00:23 Follow up: Response: No adverse reaction cw2 Outcome: 12/04 22:35 Decision to Hospitalize by Provider. cp 12/05 00:22 Admitted to Med/surg cw2 01:47 Patient left the ED. cw2 Signatures: Dispatcher [employer] EDMS Ashely Orozco RN RN lp1 Kin Fuentes PA PA cp Carley Franco Christopher, RN RN cw2 Corrections: (The following items were deleted from the chart) 12/04 22:19 22:17 CORONAVIRUS+ drawn and sent. cw2 EDMS
--- NOTE | 2020-12-04 22:35 | EDPHYS ---
Physician Documentation [facility] Name: Tiara Stokes Age: 65 yrs Sex: Female : 1955 Arrival Date: 12/04/2020 Time: 19:38 Bed 19 Private MD: ED Physician Baldomero Clark HPI: 12/04 20:05 This 65 yrs old Female presents to ER via Ambulatory with complaints of cp Breathing Difficulty. 20:05 The patient has shortness of breath with light activity. cp 20:05 Onset: The symptoms/episode began/occurred gradually. Duration: The symptoms are cp continuous, and are steadily getting worse. 20:05 Associated signs and symptoms: Pertinent positives: chest pain, non-productive cough, cp Pertinent negatives: fever, vomiting. Severity of symptoms: in the emergency department the symptoms are unchanged despite home interventions. Historical: - Allergies: 19:41 Codeine; lp1 - Home Meds: 19:41 Ventolin Rotahaler/Rotacaps Inhl [Active]; lp1 - PMHx: 19:41 Breast Cancer; Myocardial infarction; Atrial fibrillation; lp1 - PSHx: 19:41 abdirizak mastectomy; L knee replacement; lp1 - Immunization history:: Adult Immunizations up to date, Client reports receiving the 2nd dose of the Covid vaccine. - Social history:: Smoking status: Patient denies any tobacco usage or history of. ROS: 20:10 Constitutional: Negative for body aches, chills, fever, poor PO intake. cp 20:10 Eyes: Negative for injury, pain, redness, and discharge. cp 20:10 Neck: Negative for pain with movement, pain at rest, stiffness. 20:10 Cardiovascular: Positive for chest pain, edema, Negative for palpitations. 20:10 Respiratory: Positive for cough, with no reported sputum, shortness of breath, on exertion. Negative for wheezing. 20:10 Abdomen/GI: Negative for abdominal pain, nausea, vomiting, and diarrhea. 20:10 Neuro: Negative for altered mental status, headache, syncope, weakness. 20:10 All other systems are negative. Exam: 20:15 Constitutional: The patient appears in no acute distress, alert, awake, cp non-diaphoretic, non-toxic, well developed, well nourished. 20:15 Head/Face: Normocephalic, atraumatic. cp 20:15 Eyes: Periorbital structures: appear normal, Conjunctiva: normal, no exudate, no injection, Sclera: no appreciated abnormality, Lids and lashes: appear normal, bilaterally. 20:15 ENT: External ear(s): are unremarkable, Nose: is normal, Mouth: Lips: moist, Oral mucosa: moist, Posterior pharynx: Airway: no evidence of obstruction, patent. 20:15 Neck: ROM/movement: is normal, is supple, without pain, no range of motions limitations. 20:15 Chest/axilla: Inspection: normal, Palpation: is normal, no crepitus, no tenderness. 20:15 Cardiovascular: Rate: normal, Rhythm: regular, Edema: ankle edema, that is mild, JVD: is not appreciated. 20:15 Respiratory: the patient does not display signs of respiratory distress, Respirations: normal, no use of accessory muscles, no retractions, labored breathing, that is mild, Breath sounds: bronchial sounds, that are mild, are heard diffusely, stridor, is not appreciated, wheezing: is not appreciated. 20:15 Abdomen/GI: Inspection: abdomen appears normal, Bowel sounds: active, all quadrants, Palpation: abdomen is soft and non-tender, in all quadrants. 20:15 Back: pain, is absent, ROM is normal. 20:15 Skin: no rash present. 20:15 Neuro: Orientation: to person, place \T\ time. Mentation: is normal, Motor: moves all fours, strength is normal, Sensation: is normal. 22:15 ECG was reviewed by the Attending Physician. cp Vital Signs: 19:46 BP 128 / 60; Pulse 89; Resp 18; Temp 97.3(TE); Pulse Ox 96% on R/A; Weight 75.3 kg (R); lp1 Height 5 ft. 4 in. (162.56 cm); Pain 0/10; 21:00 BP 121 / 63; Pulse 51; Resp 15; Pulse Ox 97% on R/A; cw2 22:00 BP 127 / 61; Pulse 50; Resp 17; Pulse Ox 98% on R/A; cw2 23:00 BP 132 / 75; Pulse 51; Resp 16; Pulse Ox 99% on R/A; cw2 19:46 Body Mass Index 28.49 (75.30 kg, 162.56 cm) lp1 Yandel Coma Score: 19:53 Eye Response: spontaneous(4). Verbal Response: oriented(5). Motor Response: obeys cw2 commands(6). Total: 15. MDM: 20:00 Differential diagnosis: Bronchitis CHF exacerbation, Myocardial Infarction pneumonia, cp Pneumothorax pulmonary edema, Pulmonary Embolism Unstable Angina. 20:10 Patient medically screened. 22:25 Data reviewed: vital signs, nurses notes, lab test result(s), EKG, radiologic studies, cp plain films. 22:25 Test interpretation: by ED physician or midlevel provider: ECG, plain radiologic cp studies. 22:30 Physician consultation: Georges Kelly was contacted at 22:30, regarding admission, to the telemetry unit. patient's condition, and will see patient in ED, shortly. 12/04 19:56 Order name: Basic Metabolic Panel 12/04 19:56 Order name: CBC with Diff; Complete Time: 21:03 cp 12/04 21:03 Interpretation: Normal except: HGB 11.4; HCT 34.4. cp 12/04 19:56 Order name: LFT's cp 12/04 19:56 Order name: Magnesium cp 12/04 19:56 Order name: NT PRO-BNP; Complete Time: 21:03 cp 12/04 21:03 Interpretation: Normal except: NT PRO-BNP 3397. cp 12/04 19:56 Order name: PT-INR cp 12/04 19:56 Order name: Troponin (emerg Dept Use Only); Complete Time: 21:03 cp 12/04 19:56 Order name: Basic Metabolic Panel; Complete Time: 20:57 EDMS 12/04 21:03 Interpretation: Normal except: K 3.4; CL 109; BUN 19; GFR 43. cp 12/04 19:57 Order name: Liver (Hepatic) Function; Complete Time: 21:03 EDMS 12/04 19:57 Order name: Magnesium; Complete Time: 21:03 EDMS 12/04 20:06 Order name: Urine Microscopic Only cp 12/04 20:06 Order name: Influenza Screen (a \T\ B) 12/04 23:57 Order name: SARS-COV-2 RT PCR EDMS 12/04 19:56 Order name: XRAY Chest (1 view); Complete Time: 21:03 cp 12/04 19:56 Order name: EKG; Complete Time: 19:57 cp 12/04 19:56 Order name: Cardiac monitoring; Complete Time: 22:13 cp 12/04 19:56 Order name: EKG - Nurse/Tech; Complete Time: 22:13 cp 12/04 19:56 Order name: IV Saline Lock; Complete Time: 01:03 cp 12/04 19:56 Order name: Labs collected and sent; Complete Time: 01:03 cp 12/04 19:56 Order name: O2 Per Protocol; Complete Time: 01:03 cp 12/04 19:56 Order name: O2 Sat Monitoring; Complete Time: 01:03 cp 12/04 20:06 Order name: Urine Dipstick-Ancillary (obtain specimen); Complete Time: 01:02 cp 12/04 21:05 Order name: US Extremity Venous W Compression Abdirizak; Complete Time: 22:21 cp EC:15 Rate is 49 beats/min. Rhythm is regular. NM interval is normal. QRS interval is normal. cp QT interval is prolonged at 544 msec. T waves are Inverted in leads III, aVR. Interpreted by me. Reviewed by me. Administered Medications: 20:30 Drug: SOLU-Medrol (methylPrednisoLONE) 80 mg Route: IVP; Site: right wrist; cw2 21:14 Follow up: Response: Wheezing diminished cw2 20:30 Drug: Albuterol - atroVENT (ipratropium) (3:1) (2.5 mg - 0.5 mg) 3 ml Route: Nebulizer; cw2 21:15 Follow up: Response: Wheezing diminished cw2 21:19 Drug: Lasix (furosemide) 20 mg Route: IVP; Site: right wrist; cw2 12/05 00:22 Follow up: Response: No adverse reaction cw2 00:20 Drug: Aspirin Chewable Tablet 324 mg Route: PO; cw2 00:22 Follow up: Response: No adverse reaction cw2 00:23 Follow up: Response: No adverse reaction cw2 00:20 Drug: traZODONE 100 mg Route: PO; cw2 00:23 Follow up: Response: No adverse reaction cw2 Disposition: 05:31 Co-signature as Attending Physician, Baldomero Clark MD. [email or web address] Disposition Summary: 12/04/20 22:35 Hospitalization Ordered Hospitalization Status: Observation cp Provider: Burton, Mohammad cp Location: Telemetry/MedSurg (observation) cp Condition: Stable cp Problem: new cp Symptoms: have improved cp Bed/Room Type: Standard cp Room Assignment: 213(12/05/20 00:18) tl1 Diagnosis - Chest pain, unspecified cp Forms: - Medication Reconciliation Form cp - SBAR form cp Signatures: Dispatcher [employer] EDMS Ashely Orozco, RN RN lp1 Georges Kelly, MOVEMAN-C MOVEMAN-Cla1 Brenda Prado RN RN tl1 Kin Fuentes PA PA cp Baldomero Clark MD MD 7 Cali Mills RN RN cw2 Corrections: (The following items were deleted from the chart) 12/04 22:19 20:06 CORONAVIRUS+MR.LAB.BRZ ordered. [facility] 12/05 00:18 12/04 22:35 cp tl1
--- NOTE | 2020-12-04 23:07 | P.HP ---
Certification for Inpatient Patient admitted to: Observation With expected LOS: <2 Midnights Patient will require the following post-hospital care: None Practitioner: I am a practitioner with admitting privileges, knowledge of patient current condition, hospital course, and medical plan of care. Services: Services provided to patient in accordance with Admission requirements found in Title 42 Section 412.3 of the Code of Federal Regulations <Georges Kelly - Last Filed: 12/04/20 23:04> Patient History Date of Service: 12/04/20 Reason for admission: Chest pain, dyspnea History of Present Illness: 65-year-old female with history of BPD, breast cancer presents emerge department for chest pain, dyspnea. Patient reports intermittent chest pain over the course last 1 month with dyspnea and dyspnea on exertion over the course of last 1 week. Patient was evaluated in the emergency department labs are significant for hemoglobin 11.4 medical 34.4 potassium 3.4 chloride 109 BUN 19 GFR 43 BNP 3397 chest x-ray unremarkable EKG unremarkable, patient noted to be mildly bradycardic with heart rate around 50, ED provider is to admit under observation for chest pain, dyspnea - Past Medical/Surgical History Diabetic: No -: Bipolar -: Breast CA -: Osteoarthritis -: Neuropathy -: Depression -: Hypothyroidism -: Left cataract removal -: Bilateral mastectomy & reconstruction -: Hysterectomy -: Left rotator cuff sx -: Left knee replacement -: Left hip replacement - Family History Family History: Reviewed- Non-Contributory - Social History Smoking Status: Never smoker Alcohol use: No CD- Drugs: No Caffeine use: No Place of Residence: Home <Georges Kelly - Last Filed: 12/04/20 23:04> Date of Service: 12/04/20 <Karissa Burton - Last Filed: 12/12/20 05:35> Allergies codeine Adverse Reaction (Verified 12/05/20 01:52) hyperactive Home Medications: Duloxetine HCl 60 mg PO BID 12/05/20 Ibuprofen [Motrin*] 200 mg PO TIDP PRN 12/05/20 Lamotrigine [Lamictal] 100 mg PO DAILY 12/05/20 Levothyroxine Sodium [Euthyrox] 150 mcg PO DAILY 12/05/20 [place] Carbonate [Lithotabs *] 150 mg PO BEDTIME 12/05/20 Omeprazole [Prilosec] 40 mg PO DAILY 12/05/20 Trazodone HCl [Desyrel] 100 mg PO BEDTIME 12/05/20 Triamterene/Hydrochlorothiazid [Triamterene-Hctz 37.5-25 mg Cp] 1 cap PO DAILY 12/05/20 Apixaban [Eliquis] 5 mg PO BID #60 tablet 12/06/20 Aspirin [Aspirin EC] 81 mg PO DAILY #30 tablet. 12/06/20 Atorvastatin Calcium [Lipitor] 40 mg PO BEDTIME #30 tab 12/06/20 Metoprolol Tartrate [Lopressor*] 12.5 mg PO BID #30 tab 12/06/20 Review of Systems 10-point ROS is otherwise unremarkable Respiratory: Shortness of Breath, SOB with Excertion Cardiovascular: Chest Pain, Light Headedness <Georges Kelly - Last Filed: 12/04/20 23:04> Physical Examination - Physical Exam General: Alert, In no apparent distress, Oriented x3 HEENT: Atraumatic, PERRLA, Mucous membr. moist/pink, EOMI, Sclerae nonicteric Neck: Supple, 2+ carotid pulse no bruit, No LAD, Without JVD or thyroid abnormality Respiratory: Clear to auscultation bilaterally, Normal air movement Cardiovascular: Regular rate/rhythm, Normal S1 S2, Edema (1+ nonpitting edema bilateral lower extremities) Gastrointestinal: Normal bowel sounds, No tenderness Musculoskeletal: No tenderness Integumentary: No rashes Neurological: Normal gait, Normal speech, Normal strength at 5/5 x4 extr, Normal tone, Normal affect Lymphatics: No axilla or inguinal lymphadenopathy - Studies Laboratory Data (last 24 hrs) 12/04/20 20:20: WBC 10.60, Hgb 11.4 L, Hct 34.4 L, Plt Count 164 12/04/20 20:20: Sodium 141, Potassium 3.4 L, BUN 19 H, Creatinine 1.24, Glucose 99, Magnesium 2.0, Total Bilirubin 0.5, AST 29, ALT 46, Alkaline Phosphatase 91 Microbiology Data (last 24 hrs): 12/04/20 22:14 Nasopharnyx Influenza Type A Antigen Screen - Final 12/04/20 22:14 Nasopharnyx Influenza Type B Antigen Screen - Final <Georges Kelly - Last Filed: 12/04/20 23:04> Assessment and Plan - Plan Assessment: Chest pain, dyspnea BPD/anxiety Hypothyroidism GERD Plan: Chest pain, dyspnea: Trend troponin, monitor on telemetry, echocardiogram ordered. We will continue low-dose of Lasix as well given mild pedal edema and elevated BNP, cardiology consulted. BPD/anxiety: Continue home medications Hypothyroidism:Continue home medications GERD:Continue home medications DVT PPX: Heparin Code status: Full Discharge Plan: Home Plan to discharge in: 24 Hours - Advance Directives Does patient have a Living Will: No Does patient have a Durable POA for Healthcare: No - Code Status/Comfort Care Code Status Assessed: Yes (Full code) Critical Care: No Time Spent Managing Pts Care (In Minutes): 55 <Georges Kelly - Last Filed: 12/04/20 23:04> - Problems (Diagnosis) (1) Atrial fibrillation with rapid ventricular response Status: Acute (2) Atrial fibrillation with slow ventricular response Status: Acute (3) Bipolar affective disorder Status: Acute (4) Breast cancer metastasized to bone Status: Acute (5) Depression Status: Acute (6) Fatigue Status: Acute (7) Hypothyroidism Status: Acute <Karissa Burton - Last Filed: 12/12/20 05:35> Date of Service: 12/04/20 Subjective Agree with plan of care as mentioned above in the HPI Review of Systems 10-point ROS is otherwise unremarkable Physical Examination - Vital Signs Reviewed - Physical Exam General: Alert, In no apparent distress, Oriented x3 HEENT: Atraumatic, PERRLA, EOMI Neck: Supple, JVD not distended Respiratory: Clear to auscultation bilaterally, Normal air movement Cardiovascular: Irregular heart rate/rhythm Gastrointestinal: Normal bowel sounds, No tenderness Musculoskeletal: No tenderness Integumentary: No rashes Neurological: Normal speech, Normal tone, Normal affect Lymphatics: No axilla or inguinal lymphadenopathy - Studies Medications List Reviewed: Yes Assessment & Plan - Problems (Diagnosis) (1) Atrial fibrillation with rapid ventricular response Current Visit: Yes Status: Acute (2) Atrial fibrillation with slow ventricular response Current Visit: Yes Status: Acute (3) Bipolar affective disorder Current Visit: No Status: Acute (4) Breast cancer metastasized to bone Current Visit: No Status: Acute (5) Depression Current Visit: No Status: Acute (6) Fatigue Current Visit: No Status: Acute (7) Hypothyroidism Current Visit: No Status: Acute - Plan Agree with plan of care as mentioned below: 1. beta-collin 2. echo 3. cardiology consult 4. monitor on telemetry 5. OOB and ambulate <Karissa Burton - Last Filed: 12/12/20 05:35>
[2020-12-04] MEDS ORDERED: ASPIRIN 81 MG CHEWABLE TABLET ONE (23:31)
[2020-12-05] MEDS ORDERED: TRAZODONE 50 MG TABLET ONE (00:40)
[2020-12-05 01:33] LABS: Urine Bacteria <20 /HPF (<20); Urine RBC <5 /HPF (NONE SEEN)
[2020-12-05] MEDS ORDERED: MORPHINE 2 MG/ML SYR IV PRN (01:49)
[2020-12-05] MEDS ORDERED: ONDANSETRON 4 MG/2 ML VIAL IV PRN (01:49)
[2020-12-05 01:51] VITALS: BMI 28.0
[2020-12-05 03:03] LABS: Protime INR 1.13
[2020-12-05] MEDS ORDERED: NA CHLORIDE 0.9% 500 ML IV ONE (03:03)
[2020-12-05 03:21] LABS: Absolute Lymphocytes (CBC) 0.7 K/uL (0.7-4.9); Basophils % 0.2 % (0-1.3); Lymphocytes % 9.1 % (15.3-44.8); MPV 9.8 fL (7.6-11.3); RBC Red Blood Cell Count 3.66 M/uL (3.86-4.86)
[2020-12-05 03:25] LABS: ALT/SGPT 40 U/L (12-78); AST/SGOT 19 U/L (15-37); Albumin 3.4 g/dL (3.4-5.0); Alkaline Phosphatase 85 U/L (45-117); BUN Blood Urea Nitrogen 20 mg/dL (7-18); Bicarbonate 27 mmol/L (21-32); Bilirubin Total 0.5 mg/dL (0.2-1.0); Glucose Level 204 mg/dL (74-106); Protein, Total 5.9 g/dL (6.4-8.2); Sodium Level 143 mmol/L (136-145); Troponin I < 0.02 ng/mL (0.0-0.045)
[2020-12-05 03:26] LABS: HDL Cholesterol 45 mg/dL (40-60); LDL Cholesterol, Calculated 94 (<130); Magnesium 1.6 mg/dL (1.8-2.4)
[2020-12-05 03:42] LABS: Thyroid Stimulating Hormone < 0.005 uIU/mL (0.360-3.740)
[2020-12-05 04:25] LABS: Blood Morphology Comment NOT SEEN (NOT SEEN); Platelet Estimate ADEQ
[2020-12-05 04:44] LABS: Urine Appearance CLEAR (Clear); Urine Bilirubin NEGATIVE (Negative); Urine Blood NEGATIVE (Negative); Urine Color YELLOW (Yellow); Urine Glucose NEGATIVE (Negative); Urine Protein NEGATIVE (Negative); Urine Specific Gravity <=1.005 (1.005-1.030); Urine Urobilinogen 0.2 mg/dL (0.2-1.0); Urine pH 6.5 (5.0-7.0)
[2020-12-05 04:51] LABS: Urine Microscopic Reflex ORDER UMIC
[2020-12-05] MEDS ORDERED: MAGNESIUM SULFATE 1 gm IVPB 1 GM/100 ML BAG IV ONE (05:00)
[2020-12-05] MEDS ORDERED: POTASSIUM CL SA 10 MEQ TAB PO ONE ×2 (05:00→13:59)
[2020-12-05 05:33] LABS: Urine Bacteria <20 /HPF (<20); Urine RBC <5 /HPF (NONE SEEN)
[2020-12-05] MEDS ORDERED: PNEUMOCOCCAL VACCINE 0.5 ML IMVAC ONE (08:00)
[2020-12-05] MEDS ORDERED: INFLUENZA VACCINE (for 6+ mo) 0.5 ML DOSE IMVAC ONE (08:00)
[2020-12-05] MEDS: ASPIRIN EC 81 MG TAB PO SCH (08:07)
[2020-12-05] MEDS: HEPARIN 5000 UNIT/ML 1 ML VIAL SQ SCH ×2 (08:08→19:40)
[2020-12-05] MEDS: FUROSEMIDE 20 MG/ 2ML VIAL IV SCH (09:41)
[2020-12-05] MEDS ORDERED: DIGOXIN 0.25 MG/ML AMP IV SCH (12:00)
[2020-12-05 12:37] LABS: Potassium 3.5 mmol/L (3.5-5.1); Troponin I < 0.02 ng/mL (0.0-0.045)
--- NOTE | 2020-12-05 14:39 | ECHO ---
HEIGHT: 5 ft 4 in WEIGHT: 163 lb 6.4 oz DATE OF STUDY: 12/05/[address]: Georges Kelly NP 2-DIMENSIONAL: YES M.MODE: YES DOPPLER: YES COLOR FLOW: YES TDS: NO PORTABLE: NO DEFINITY: NO BUBBLE STUDY: NO DIAGNOSIS: CHEST PAIN, DYSPNEA CARDIAC HISTORY: CATHERIZATION: SURGERY: PROSTHETIC VALVE: PACEMAKER: MEASUREMENTS (cm) DIASTOLIC (NORMALS) SYSTOLIC (NORMALS) IVSd 1.0 (0.6-1.2) LA Diam 3.5 (1.9-4.0) LVEF 62% LVIDd 4.1 (3.5-5.7) LVIDs 2.7 (2.0-3.5) %FS 33% LVPWd 0.9 (0.6-1.2) Ao Diam 2.8 (2.0-3.7) 2 DIMENSIONAL ASSESSMENT: RIGHT ATRIUM: NORMAL LEFT ATRIUM: NORMAL RIGHT VENTRICLE: NORMAL LEFT VENTRICLE: NORMAL TRICUSPID VALVE: SEVERE TRICUSPID REGURGITATION MITRAL VALVE: MILD MITRAL REGURGITATION PULMONIC VALVE: MILD PULMONIC REGURGITATION AORTIC VALVE: NORMAL PERICARDIAL EFFUSION: NONE AORTIC ROOT: NORMAL LEFT VENTRICULAR WALL MOTION: NORMAL. DOPPLER/COLOR FLOW: SEE BELOW. COMMENTS: NORMAL LEFT VENTRICULAR EJECTION FRACTION 55-60%. NORMAL WALL MOTION. MILD MITRAL AND SEVERE TRICUSPID REGURGITATION. TECHNOLOGIST: EAGLE COYNE
[2020-12-05] MEDS ORDERED: TRAZODONE 50 MG TABLET PO SCH (21:00)
[2020-12-05] MEDS ORDERED: ATORVASTATIN 40 MG TAB PO SCH (21:00)
[2020-12-06 06:04] LABS: Absolute Lymphocytes (CBC) 2.8 K/uL (0.7-4.9); Basophils % 0.2 % (0-1.3); Hematocrit 31.7 % (36.0-45.0); Lymphocytes % 28.8 % (15.3-44.8); MPV 9.6 fL (7.6-11.3); RBC Red Blood Cell Count 3.74 M/uL (3.86-4.86)
[2020-12-06 06:23] LABS: Albumin 3.3 g/dL (3.4-5.0); Bilirubin Total 0.6 mg/dL (0.2-1.0); Potassium 3.4 mmol/L (3.5-5.1); Protein, Total 5.6 g/dL (6.4-8.2)
[2020-12-06] MEDS: HEPARIN 5000 UNIT/ML 1 ML VIAL SQ SCH (08:10)
[2020-12-06] MEDS: ASPIRIN EC 81 MG TAB PO SCH (08:10)
[2020-12-06] MEDS: FUROSEMIDE 20 MG/ 2ML VIAL IV SCH (08:10)
[2020-12-06] MEDS ORDERED: POTASSIUM 25 MEQ EFFERV TAB PO ONE (09:00)
[2020-12-06 09:41] VITALS: O2SAT 97
--- NOTE | 2020-12-06 11:28 | P.PN ---
Subjective Date of Service: 12/05/20 Patient is going from rapid ventricular response to slow ventricular response. Give her a dose of digoxin. Hopefully, patient's heart rate will stabilize. Anticipate discharge over the next 24 hr. Spoke with Cardiology and they wanted to consider long-term low-dose Lopressor. Review of Systems 10-point ROS is otherwise unremarkable Physical Examination - Vital Signs Temperature: 97.5 F Blood Pressure: 133/67 Pulse: 51 Respirations: 16 Pulse Ox (%): 97 - Physical Exam General: Alert, In no apparent distress, Oriented x3 HEENT: Atraumatic, PERRLA, EOMI Neck: Supple, JVD not distended Respiratory: Clear to auscultation bilaterally, Normal air movement Cardiovascular: Irregular heart rate/rhythm Gastrointestinal: Normal bowel sounds, No tenderness Musculoskeletal: No tenderness Integumentary: No rashes Neurological: Normal speech, Normal tone, Normal affect Lymphatics: No axilla or inguinal lymphadenopathy - Studies Medications List Reviewed: Yes Assessment & Plan - Problems (Diagnosis) (1) Atrial fibrillation with rapid ventricular response Current Visit: Yes Status: Acute (2) Atrial fibrillation with slow ventricular response Current Visit: Yes Status: Acute (3) Bipolar affective disorder Current Visit: No Status: Acute (4) Breast cancer metastasized to bone Current Visit: No Status: Acute (5) Depression Current Visit: No Status: Acute (6) Fatigue Current Visit: No Status: Acute (7) Hypothyroidism Current Visit: No Status: Acute - Plan PLAN: 1. beta-collin 2. echo 3. cardiology consult 4. monitor on telemetry 5. OOB and ambulate Discharge Plan: Home Plan to discharge in: Greater than 2 days - Advance Directives Does patient have a Living Will: No Does patient have a Durable POA for Healthcare: No - Code Status/Comfort Care Code Status Assessed: Yes Code Status: Full Code Critical Care: No Time Spent Managing PTS Care (In Minutes): 35
[2020-12-06] MEDS ORDERED: POTASSIUM CL SA 10 MEQ TAB PO ONE (15:55)
--- NOTE | 2020-12-06 18:13 | EKG ---
Test Date: 2020-12-04 Test Time: 22:07:51 Java Android Developer: DAPHNE MEASUREMENT RESULTS: Intervals: Rate: 49 MA: 138 QRSD: 76 QT: 544 QTc: 491 [place]: P: 40 MA: 138 QRS: 10 T: -8 INTERPRETIVE STATEMENTS: Marked sinus bradycardia with occasional premature ventricular complexes ST & T wave abnormality, consider inferior ischemia Prolonged QT Abnormal ECG Compared to ECG 01/14/2020 14:09:01 Ventricular premature complex(es) now present Possible ischemia now present Prolonged QT interval now present Sinus rhythm no longer present Left ventricular hypertrophy no longer present ST (T wave) deviation still present Electronically Signed On 12-06-20 18:06:22 CDT by Singh Fortune
--- NOTE | 2020-12-07 00:09 | CON ---
Date of Consultation: 12/05/2020 The patient admitted to Dr. Burton's service on 12/04/2020. Reason For Consultation: Shortness of breath. History Of Present Illness: Ms. Stokes is a 65-year-old woman with history of breast cancer, coronar y artery disease, left knee replacement, atrial fibrillation, COPD, who came in with shortness of suze ath and I was consulted. Denied any nausea, vomiting, diaphoresis, PND, orthopnea, pedal edema, palp itation, or syncope. Past Medical History: As stated above. Allergies: INCLUDE CODEINE. Review of Systems: Negative. Social History: Negative. Family History: Noncontributory. Medications: At home include Ventolin inhalers. Physical Examination: Vital Signs: Stable. She was afebrile. HEENT: Negative. She was in sinus rhythm. Neck: Supple without any bruit, lymphadenopathy, JVD, or thyromegaly. Chest: Clear to auscultation and percussion. Cardiac: Revealed irregular rhythm and rate. No murmurs, gallops, or rubs. Abdomen: Benign. Extremities: Revealed no clubbing, cyanosis, or edema. Diagnostic Data: Positive for glucose of 204, potassium of 3.0. BNP was 3397. Her troponin was neg ative. Chest x-ray was normal. Electrocardiogram showed sinus bradycardia, PVCs, possible inferior ischemia versus LVH. Extremity venous study showed no DVT. Echocardiogram showed a normal ejection fraction, no wall motion abnormalities with tricuspid regurgitation but normal right ventricular syst olic pressure. Impression And Plan: Shortness of breath, more likely secondary to chronic obstructive pulmonary dis ease exacerbation. There is no evidence of congestive heart failure. No evidence of troponin leak. Chest x-ray is normal. Her EKG is probably more consistent with LVH. She does not have any deep ve nous thrombosis. Her medications include aspirin, Lipitor, digoxin, Lasix. Potassium was supplement ed. She is on Eliquis at home for her paroxysmal atrial fibrillation. She is on Lipitor and aspirin at home. She is on thyroid, lithium, metoprolol, Prilosec, trazodone, triamterene with hydrochlorot hiazide. I will send her home with a home regimen. I will see her in the office in the near future. I will consider getting an outpatient Lexiscan. GRANGER/SKYE Voice ID: [id number] Report ID: [id number]
--- NOTE | 2020-12-07 16:48 | EKG ---
Test Date: 2020-12-05 Test Time: 02:55:40 [employer] Leveler Machine: RT-O MEASUREMENT RESULTS: Intervals: Rate: 80 CO: QRSD: 86 QT: 392 QTc: 452 [place]: P: CO: QRS: 13 T: -76 INTERPRETIVE STATEMENTS: Atrial fibrillation ST & T wave abnormality, consider inferior ischemia or digitalis effect ST & T wave abnormality, consider anterolateral ischemia or digitalis effect Abnormal ECG Compared to ECG 12/04/2020 22:07:51 Sinus bradycardia no longer present Ventricular premature complex(es) no longer present Prolonged QT interval no longer present ST (T wave) deviation still present Possible ischemia still present Electronically Signed On 12-07-20 16:43:12 CDT by Singh Fortune
[2020-12-12 05:35] VITALS: BP 133/67; TEMP 97.5
--- NOTE | 2020-12-12 05:36 | P.DS ---
Discharge Date: 12/06/20 Disposition: ROUTINE DISCHARGE Discharge Condition: GOOD Reason for Admission: Chest pain, dyspnea - Problems (1) Atrial fibrillation with rapid ventricular response Status: Acute (2) Atrial fibrillation with slow ventricular response Status: Acute (3) Bipolar affective disorder Status: Acute (4) Breast cancer metastasized to bone Status: Acute (5) Depression Status: Acute (6) Fatigue Status: Acute (7) Hypothyroidism Status: Acute Brief History of Present Illness: 65-year-old female with history of BPD, breast cancer presents emerge department for chest pain, dyspnea. Patient reports intermittent chest pain over the course last 1 month with dyspnea and dyspnea on exertion over the course of last 1 week. Patient was evaluated in the emergency department labs are significant for hemoglobin 11.4 medical 34.4 potassium 3.4 chloride 109 BUN 19 GFR 43 BNP 3397 chest x-ray unremarkable EKG unremarkable, patient noted to be mildly bradycardic with heart rate around 50, ED provider is to admit under observation for chest pain, dyspnea Hospital Course: Patient medications were adjusted. Patient clinically is doing well. At this time patient is stable for discharge with outpatient follow with Cardiology. Return to the emergency room if symptoms worsen. Vital Signs/Physical Exam: Temp Pulse Resp BP Pulse Ox 97.5 F 51 16 133/67 97 12/12/20 05:35 12/12/20 05:35 12/12/20 05:35 12/12/20 05:35 12/12/20 05:35 General: Alert, In no apparent distress, Oriented x3 Laboratory Data at Discharge: WBC 9.80 K/uL (4.3-10.9) D 12/06/20 05:20 Hgb 10.5 g/dL (12.0-15.0) L 12/06/20 05:20 Hct 31.7 % (36.0-45.0) L 12/06/20 05:20 Plt Count 174 K/uL (152-406) 12/06/20 05:20 PT 13.0 SECONDS (9.5-12.5) H 12/05/20 02:31 INR 1.13 12/05/20 02:31 Sodium 143 mmol/L (136-145) 12/06/20 05:20 Potassium 3.6 mmol/L (3.5-5.1) 12/06/20 13:48 BUN 22 mg/dL (7-18) H 12/06/20 05:20 Creatinine 1.02 mg/dL (0.55-1.3) 12/06/20 05:20 Glucose 120 mg/dL (74-106) H 12/06/20 05:20 Magnesium 2.0 mg/dL (1.8-2.4) 12/06/20 05:20 Total Bilirubin 0.6 mg/dL (0.2-1.0) 12/06/20 05:20 AST 19 U/L (15-37) 12/06/20 05:20 ALT 36 U/L (12-78) 12/06/20 05:20 Alkaline Phosphatase 77 U/L (45-117) 12/06/20 05:20 Troponin I < 0.02 ng/mL (0.0-0.045) 12/05/20 11:54 Triglycerides 47 mg/dL (<150) 12/05/20 02:31 Cholesterol 148 mg/dL (<200) 12/05/20 02:31 HDL Cholesterol 45 mg/dL (40-60) 12/05/20 02:31 Cholesterol/HDL Ratio 3.29 12/05/20 02:31 Home Medications: Duloxetine HCl 60 mg PO BID 12/05/20 Ibuprofen [Motrin*] 200 mg PO TIDP PRN 12/05/20 Lamotrigine [Lamictal] 100 mg PO DAILY 12/05/20 Levothyroxine Sodium [Euthyrox] 150 mcg PO DAILY 12/05/20 [place] Carbonate [Lithotabs *] 150 mg PO BEDTIME 12/05/20 Omeprazole [Prilosec] 40 mg PO DAILY 12/05/20 Trazodone HCl [Desyrel] 100 mg PO BEDTIME 12/05/20 Triamterene/Hydrochlorothiazid [Triamterene-Hctz 37.5-25 mg Cp] 1 cap PO DAILY 12/05/20 Apixaban [Eliquis] 5 mg PO BID #60 tablet 12/06/20 Aspirin [Aspirin EC] 81 mg PO DAILY #30 tablet. 12/06/20 Atorvastatin Calcium [Lipitor] 40 mg PO BEDTIME #30 tab 12/06/20 Metoprolol Tartrate [Lopressor*] 12.5 mg PO BID #30 tab 12/06/20 New Medications: Aspirin [Aspirin EC] 81 mg PO DAILY #30 tablet. Apixaban [Eliquis] 5 mg PO BID #60 tablet Atorvastatin Calcium [Lipitor] 40 mg PO BEDTIME #30 tab Metoprolol Tartrate [Lopressor*] 12.5 mg PO BID #30 tab Physician Discharge Instructions: OK TO DC IV AND DC HOME FOLLOW-UP WITH PRIMARY CARE PROVIDER IN 1-2 WEEKS FOLLOW-UP WITH CARDIOLOGY IN 1-2 WEEKS RETURN TO THE ER IF symptoms worsen CALL or TEXT DR. RILEY AT [phone] IF ANY QUESTIONS REGARDING HOSPITAL STAY. PLEASE CALL THE FLOOR AT [phone] IF ANY MEDICATION OR NURSING QUESTIONS. Diet: AHA Activity: Fall precautions Followup: Signh Fortune MD [ACTIVE - CAN ADMIT] - NONE,NONE [Primary Care Provider] - Time spent managing pt's care (in minutes): 35
== END 2020-12-06 16:30 | disposition home or self-care (01) ==
LOC: ER 19:13 → ERHOLD 23:06 → 2ND 12-05 01:40
PROVIDERS: ADMIT Hospitalist; ATTEND Hospitalist
DX: I48.0 Paroxysmal atrial fibrillation (principal); J44.9 Chronic obstructive pulmonary disease, unspecified; E03.9 Hypothyroidism, unspecified; I25.10 Atherosclerotic heart disease of native coronary artery without angina pectoris; F31.9 Bipolar disorder, unspecified; F32.A Depression, unspecified; F41.9 Anxiety disorder, unspecified; I25.2 Old myocardial infarction; M19.90 Unspecified osteoarthritis, unspecified site; G62.9 Polyneuropathy, unspecified; K21.9 Gastro-esophageal reflux disease without esophagitis; Z79.01 Long term (current) use of anticoagulants; Z79.82 Long term (current) use of aspirin; Z88.6 Allergy status to analgesic agent; Z85.3 Personal history of malignant neoplasm of breast; Z85.830 Personal history of malignant neoplasm of bone; Z90.13 Acquired absence of bilateral breasts and nipples; Z90.710 Acquired absence of both cervix and uterus; Z96.652 Presence of left artificial knee joint; Z96.642 Presence of left artificial hip joint; Z20.822 Contact with and (suspected) exposure to COVID-19
CPT/HCPCS: 93005 ×2; 93306; 87088; 85025 ×3; 87086; 80048; 36415 ×2; 83735 ×3; 84132 ×2; 85610; 80061; 80076; 84443; 84484 ×3; 84439; 80053 ×2; 83880; 87804 ×2; 71045; 93970; 96375; 96374; 99285; U0003; J1940 ×3; J1160; J1644 ×3; J3475; J7040; J2930; G0378 ×3; 81003; 81015

== ENCOUNTER 2021-04-25 10:21 | Observation (INO) | payer OTHER ==
--- OUTSIDE RECORDS SUMMARY | 2021-04-25 10:27 | XMS REPORT | Continuity of Care Document ---
:1955 Author Organization [facility] t Address [address] [place] [address] Care Team Providers Name Role Phone Nilton PORTILLO Primary Care Physician HEMATPOUR Attending Clinician Unavailable Viv Attending Clinician Unavailable Iris HERRMANN Attending Clinician Unavailable HEMATPOELIZABETH Attending Clinician Unavailable Loyda HUANG Attending Clinician Unavailable Only, Test Attending Clinician Unavailable Iris Herrmann MD Attending Clinician Doctor Unassigned, Name Attending Clinician Unavailable MARY Attending Clinician Unavailable Karina CRAIG, A Attending Clinician Unavailable Dell Callaway MD Attending Clinician Jabier VIZCAINO Attending Clinician Felix PORTILLO Attending Clinician ZAIDA Attending Clinician Unavailable Iris HERRMANN Admitting Clinician Unavailable Felix PORTILLO Admitting Clinician Payers Payer Name Policy Type Policy Number Effective Date Expiration Date S bartolo [employer] MEDICARE [id number] 2019 ADVANTAGE HMO 00:00:00 [employer]NA [facility] [id number] 2019 HMO 00:00:00 MEDICAID OF [place] [id number] 2020 00:00:00 Problems Condition Condition Condition Status Onset Resolution Last Treating Co mments Source Name Details Category Date Date Treatment Clinician Date Acute Acute Disease Active [facility] pharyngiti pharyngiti 03-28 He alth s s 00:00: 00 Arthritis Arthritis Disease Active [facility] of knee, of knee, 03-28 Health right right 00:00: 00 Cancer Cancer Disease Active [facility] 25 [facility] 00:00: 00 Contusion Contusion Disease Active [facility] of left of left 03-28 Health knee knee 00:00: 00 Cough Cough Disease Active [facility] 25 [facility] 00:00: 00 Acute Acute Disease Active [facility] nonintract nonintract 03-28 He alth able able 00:00: headache headache 00 Intractabl Intractabl Disease Active U T e headache e headache 03-28 He alth 00:00: 00 Memory Memory Disease Active UT problem problem 03-28 Health 00:00: 00 Osteoporos Osteoporos Disease Active U T is is 03-28 Health 00:00: 00 Pain in Pain in Disease Active UT right foot right foot 03-28 He alth 00:00: 00 Paresthesi Paresthesi Disease Active U T a of right a of right 03-28 He alth foot foot 00:00: 00 Skin Skin Disease Active UT sensation sensation 03-28 Heal th disturbanc disturbanc 00:00: e e 00 Primary Primary Disease Active UT osteoarthr osteoarthr 03-28 He alth itis of itis of 00:00: right knee right knee 00 Respirator Respirator Disease Active U T y symptoms y symptoms 03-28 He alth 00:00: 00 Seasonal Seasonal Disease Active UT allergies allergies 03-28 Heal th 00:00: 00 Sinus Sinus Disease Active [facility] problem problem 03-28 Health 00:00: 00 History of History of Disease Active U T left knee left knee 03-28 Heal th replacemen replacemen 00:00: t t 00 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 03-28 He alth left knee left knee 00:00: replacemen replacemen 00 t t Suspected Suspected Disease Active UT COVID-19 COVID-19 1-25 Health virus virus 00:00: infection infection 00 Swelling Swelling Disease Active UT 1-25 Health 00:00: 00 Thyroid Thyroid Disease Active UT disease disease 03-28 Health 00:00: 00 URI, acute URI, acute Disease Active U T 1-25 Health 00:00: 00 Shortness Shortness Disease Active UT of breath of breath 1-11 Heal th 00:00: 00 Other Other Disease Active UT chest pain chest pain -11 He alth 00:00: 00 Acquired Acquired Disease Active 2020-03 UT hypothyroi hypothyroi 03-22 He alth dism dism 00:00: 00 Anxiety Anxiety Disease Active 2020-03 UT - Health 00:00: 00 Asthma Asthma Disease Active 2020-03 [facility] - Health 00:00: 00 Bipolar Bipolar Disease Active 2020-03 UT disorder disorder 03-22 Health 00:00: 00 Coarse Coarse Disease Active 2020-03 UT tremors tremors 03-22 Health 00:00: 00 Gastroesop Gastroesop Disease Active 2020-03 U T hageal hageal 1-19 Health reflux reflux 00:00: disease disease 00 Migraine Migraine Disease Active 2020-03 [facility] - Health 00:00: 00 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 00 Atrial Atrial Disease Active 2020-03 UT fibrillati fibrillati 1-16 He alth on on 00:00: 00 Bradycardi Bradycardi Disease Active 2020-03 U T a a 1-16 Health 00:00: 00 Other Other Disease Active 2019-03 [facility] chest pain chest pain 2-30 it y of 00:00: [place] 00 [facility] Shortness Shortness Disease Active 2019-03 Uni vers of breath of breath 2-29 ity of 00:00: [place] 00 Medical Branch Edema of Edema of Disease Active UT lower lower 2-12 Health extremity extremity 00:00: 00 No known No known Disease Unive rs active active ity of problems problems [facility] Allergies, Adverse Reactions, Alerts Allergy Allergy Status Severity Reaction(s) Onset Inactive Treating Comm ents Source Name Type Date Date Clinician Makayla Stevens Active 2020-03 [facility] ty to 15 Health adverse 00:00: reaction 00 s Codeine Propensi Active Other - See hyperacti Univers ty to comments 10-14 vity ity of adverse 00:00: [place] reaction 00 Medical s Branch CODEINE DRUG Active Other-Cmnt Unive rs INGREDI 10-14 ity of 00:00: [place] 00 Medical Branch Pollen Adverse Active Info Not [facility] Reaction Available [facility] Social History Social Habit Start Date Stop Date Quantity Comments Source History [facility] Health Alcohol Std Drinks History [facility] Health Alcohol Binge History [facility] Health Alcohol Comment Exposure to Not sure [facility] SARS-CoV-2 (event) Alcohol intake 2021-04-11 2021-04-11 Lifetime [facility] 00:[facility] 00:00:00 non-drinker (finding) Tobacco use and 2021-01-16 2021-01-16 Smokeless tobacco [facility] exposure 00:00:00 00:00:00 non-user History SDNM 2021-01-16 2021-01-16 1 [facility] Alcohol Frequency 00:00:00 00:00:00 Sex Ass[birth year] [facility] 00:00:00 00:00:00 Smoking Status Start Date Stop Date Source Tobacco smoking consumption unknown [facility] Never smoked tobacco [facility] Medications Ordered Filled Start Stop Current Ordering Indication Dosage Frequency Signature Comments Components Source Medication Medication Date Date Medication? Clinician (SIG) Name Name metoprolol Yes 25mg Q.5D Take 25 mg U T tartrate 2-08 by mouth 2 Healt h (Lopressor) 09:47: (two) 50 MG 35 times a tablet day. triamterene Yes 1{capsu Take 1 U T -hydroCHLOR 2-08 le} capsule by viola Othiazide 09:05: mouth 1 (Dyazide) 19 (one) time 37.5-25 MG each day capsule in the morning. Multiple Yes 1{tbl} QD Take 1 UT Vitamins-Mi 2-08 tablet by Alejandra lt nerals 09:05: mouth 1 (Complete) 19 (one) time tablet each day. aspirin 81 Yes 81mg QD Take 81 mg U T MG EC 2-08 by mouth 1 Health tablet 09:05: (one) time 19 each day. DULoxetine 2021-0 Yes 60mg Q.5D Take 60 mg U T (Cymbalta) 2-08 by mouth 2 Hea lth [address] 09:05: (two) capsule 19 times a day. Do not crush or chew. apixaban 2021-0 Yes 5mg Q.5D Take 5 mg UT (Eliquis) 5 2-08 by mouth 2 He alth MG tablet 09:05: (two) 19 times a day. lamoTRIgine 2021-0 Yes 100mg Q.5D Take 100 U T (LaMICtal) 2-08 mg by Health 100 MG 09:05: mouth 2 tablet 19 (two) times a day. lithium 150 2021-0 Yes 150mg Take 150 U T MG capsule 2-08 mg by Health 09:05: mouth 19 every night. traZODone 2021-0 Yes 100mg Take 100 UT (Desyrel) 2-08 mg by Health 100 MG 09:05: mouth tablet 19 every night. 2 TABS AT BEDTIME levothyroxi 2021-0 2021- No 150ug Take 150 UT ne 2-08 02-08 mcg by Health (Tirosint) 09:05: 00:00 mouth 1 150 MCG 19 :00 (one) time capsule each day before breakfast. pantoprazol 2021-0 Yes 40mg QD Take 40 mg UT e 1-25 by mouth 1 Health (ProtoNix) 00:00: (one) time 40 MG EC 00 each day. tablet sucralfate 2021-0 Yes 1g Q12H Take 1 g UT (Carafate) 1-21 by mouth Healt h 1 g tablet 00:00: every 12 00 (twelve) hours. TAKE 1 TABLET BY MOUTH EVERY 12 HOURS FOR 14 DAYS omeprazole 2021-0 2021- No [id number] TAKE 1 UT (PriLOSEC) - 02-08 CAPSULE(40 He alth [address] 00:00: 00:00 MG) BY capsule 00 :00 MOUTH 1 TIME EACH DAY. DO NOT CRUSH OR CHEW Biotin 10 2021-0 2021- No 1{capsu QD Take 1 UT MG capsule 03-14 le} capsule by He alth 11:04: 00:00 mouth 1 56 :00 (one) time each day. levothyroxi Yes 150ug Take 150 U T ne 1-11 mcg by Health (Tirosint) 11:04: mouth 1 150 MCG 03 (one) time capsule each day before breakfast. levothyroxi 2021- No 200ug Take 200 UT ne 03-14-11 mcg by [facility] (Synthroid, 11:03: 00:00 mouth 1 Levoxyl) 43 :00 (one) time 200 MCG each day tablet before breakfast. lithium 150 Yes 150mg Take 150 U T MG capsule 1-11 mg by Health 11:02: mouth 43 every night. omeprazole 2021- No 40mg QD Take 40 mg UT (PriLOSEC) 03-14 by mouth 1 He alth [address] 11:01: 00:00 (one) time capsule 38 :00 each day. Do not crush or chew. atorvastati 2021- No 20mg QD Take 20 mg UT n (Lipitor) 03-14 by mouth 1 H ealth 20 MG 10:58: 00:00 (one) time tablet 50 :00 each day. omeprazole 2021- Yes [id number] 40mg QD Take 1 UT (PriLOSEC) 03-1413 capsule Healt h [address] 00:00: 05:59 (40 mg capsule 00 :00 total) by mouth 1 (one) time each day. Do not crush or chew. levothyroxi 2020-03 Yes 150ug Take 150 U T ne 2-06 mcg by [facility] (Synthroid, 00:00: mouth 1 Levoxyl) 00 (one) time 150 MCG each day tablet in the morning. ON AN EMPTY STOMACH oseltamivir 2020-03- No UT (Tamiflu) 2 02-08 Health 75 MG 00:00: 00:00 capsule 00 :00 Biotin 10 2020-03 Yes 1{capsu QD Take 1 UT MG capsule 1-16 le} capsule by [facility] 10:11: mouth 1 05 (one) time each day. Multiple 2020-03 Yes 1{tbl} QD Take 1 UT Vitamins-Mi 1-16 tablet by [facility] nerals 10:11: mouth 1 (Complete) 05 (one) time tablet each day. Multiple 2020-03 Yes 1{tbl} QD Take 1 UT Vitamins-Mi 1-16 tablet by a lt nerals 10:11: mouth 1 (Complete) 05 (one) time tablet each day. aspirin 81 2020-03 Yes 81mg QD Take 81 mg U T MG EC 1-16 by mouth 1 Health tablet 10:07: (one) time 18 each day. atorvastati 2020-03 Yes 20mg QD Take 20 mg UT n (Lipitor) 1-16 by mouth 1 He alth 20 MG 10:07: (one) time tablet 18 each day. DULoxetine 2020-03 Yes 60mg Q.5D Take 60 mg U T (Cymbalta) 1-16 by mouth 2 a [address] 10:07: (two) capsule 18 times a day. Do not crush or chew. apixaban 2020-03 Yes 2.5mg Q.5D Take 2.5 UT (Eliquis) 1-16 mg by Health 2.5 MG 10:07: mouth 2 tablet 18 (two) times a day. lamoTRIgine 2020-03 Yes 100mg Q.5D Take 100 U T (LaMICtal) 1-16 mg by Health 100 MG 10:07: mouth 2 tablet 18 (two) times a day. lithium 150 2020-03 Yes 150mg Take 150 U T MG capsule 1-16 mg by Health 10:07: mouth 2 18 (two) times a day with meals. metoprolol 2020-03 Yes 25mg Q.5D 25 mg 2 UT tartrate 1-16 (two) Health (Lopressor) 10:07: times a 25 MG 18 day. tablet omeprazole 2020-03 Yes 40mg QD Take 40 mg U T (PriLOSEC) 1-16 by mouth 1 a lth [address] 10:07: (one) time capsule 18 each day. Do not crush or chew. levothyroxi 2020-03 Yes 200ug Take 200 U T ne 1-16 mcg by Health (Synthroid, 10:07: mouth 1 Levoxyl) 18 (one) time 200 MCG each day tablet before breakfast. traZODone 2020-03 Yes 100mg Take 100 UT (Desyrel) 1-16 mg by Health 100 MG 10:07: mouth tablet 18 every night. 2 TABS AT BEDTIME triamterene 2020-03 Yes 1{capsu Take 1 U T -hydroCHLOR 1-16 le} capsule by He alth Othiazide 10:07: mouth 1 (Dyazide) 18 (one) time 37.5-25 MG each day capsule in the morning. aspirin 81 2020-03 Yes 81mg QD Take 81 mg U T MG EC 1-16 by mouth 1 Health tablet 10:07: (one) time 18 each day. DULoxetine 2020-03 Yes 60mg Q.5D Take 60 mg U T (Cymbalta) 1-16 by mouth 2 Hea lth [address] 10:07: (two) capsule 18 times a day. Do not crush or chew. apixaban 2020-03 Yes 2.5mg Q.5D Take 2.5 UT (Eliquis) 1-16 mg by Health 2.5 MG 10:07: mouth 2 tablet 18 (two) times a day. lamoTRIgine 2020-03 Yes 100mg Q.5D Take 100 U T (LaMICtal) 1-16 mg by Health 100 MG 10:07: mouth 2 tablet 18 (two) times a day. metoprolol 2020-03 Yes 25mg Q.5D 25 mg 2 UT tartrate 1-16 (two) Health (Lopressor) 10:07: times a 25 MG 18 day. tablet traZODone 2020-03 Yes 100mg Take 100 UT (Desyrel) 1-16 mg by Health 100 MG 10:07: mouth tablet 18 every night. 2 TABS AT BEDTIME triamterene 2020-03 Yes 1{capsu Take 1 U T -hydroCHLOR 1-16 le} capsule by He alth Othiazide 10:07: mouth 1 (Dyazide) 18 (one) time 37.5-25 MG each day capsule in the morning. traZODone 2020-03 Yes 100mg Take 100 UT (Desyrel) 1-15 mg by Health 100 MG 16:10: mouth tablet 07 every night. triamterene 2020-03 Yes 1{capsu Take 1 U T -hydroCHLOR 1-15 le} capsule by He alth Othiazide 16:10: mouth 1 (Dyazide) 07 (one) time 37.5-25 MG each day capsule in the morning. DULoxetine 2020-03 Yes 60mg QD Take 60 mg U T (Cymbalta) 1-15 by mouth 1 Hea lth [address] 16:10: (one) time capsule 06 each day. Do not crush or chew. apixaban 2020-03 Yes 2.5mg Q.5D Take 2.5 UT (Eliquis) 1-15 mg by Health 2.5 MG 16:10: mouth 2 tablet 06 (two) times a day. lamoTRIgine 2020-03 Yes Take by UT (LaMICtal) 1-15 mouth. Health 100 MG 16:10: tablet 06 lithium 150 2020-03 Yes 150mg Take 150 U T MG capsule 1-15 mg by Health 16:10: mouth 3 06 (three) times a day with meals. metoprolol 2020-03 Yes Take by UT tartrate 1-15 mouth. Health (Lopressor) 16:10: 25 MG 06 tablet omeprazole 2020-03 Yes 40mg QD Take 40 mg U T (PriLOSEC) 1-15 by mouth 1 Hea lth [address] 16:10: (one) time capsule 06 each day. Do not crush or chew. levothyroxi 2020-03 Yes 200ug Take 200 U T ne 1-15 mcg by [facility] (Synthroid, 16:10: mouth 1 Levoxyl) 06 (one) time 200 MCG each day tablet before breakfast. aspirin 81 2020-03 Yes 81mg QD Take 81 mg U T MG EC 1-15 by mouth 1 Health tablet 16:10: (one) time 05 each day. atorvastati 2020-03 Yes 20mg QD Take 20 mg UT n (Lipitor) 1-15 by mouth 1 He alth 20 MG 16:10: (one) time tablet 05 each day. atorvastati 2020-03 Yes 40mg Take 40 mg UT n (Lipitor) -04 by mouth Heal th 40 MG 00:00: every tablet 00 night. atorvastati 2020-03- No 40mg Take 40 mg UT n (Lipitor) -03-14 by mouth Hea lth 40 MG 00:00: 00:00 every tablet 00 :00 night. albuterol Yes [facility] 108 (11-05 [facility]) 00:00: MCG/ACT 00 inhaler albuterol 0 Yes [facility] 108 (11-05 [facility]) 00:00: MCG/ACT 00 inhaler albuterol 2021- No UT 108 (11-05 [facility]) 00:00: 00:00 MCG/ACT 00 :00 inhaler budesonide Yes UT (Pulmicort) 5-28 Health 0.5 MG/2ML 00:00: nebulizer 00 solution budesonide Yes UT (Pulmicort) 5-28 Health 0.5 MG/2ML 00:00: nebulizer 00 solution budesonide Yes UT (Pulmicort) 5-28 Health 0.5 MG/2ML 00:00: nebulizer 00 solution DULOXETINE 2019-03 Yes 60mg Take 60 mg U nivers HCL 2-31 by mouth 2 ity of (CYMBALTA 22:15: (two) [place] ORAL) 49 times Medical daily. Branch LITHIUM 2019-03 Yes 150mg Take 150 Unive rs CITRATE 2-31 mg by ity of ORAL 22:15: mouth 2 [place] 49 (two) Medical times Branch daily. TRAZODONE 2019-03 Yes 100mg Take 100 Uni vers HCL 2-31 mg by ity of (TRAZODONE 22:15: mouth at [place] as ORAL) 49 bedtime. Medical Branch Biotin 2019-03 Yes 1{capsu Take 1 Univer s 10,000 mcg 2-31 le} capsule by ity of Cap 22:15: mouth [place] 49 daily. Medical Branch multivitami 2019-03 Yes 1{tbl} Take 1 Un vinicio n, 2-31 tablet by ity of tx-minerals 22:15: mouth [place] (COMPLETE 49 daily. Medical MULTIVITAMI Branch N) tablet gabapentin 2019-03 Yes 600mg Take 600 Un vinicio 300 mg 2-31 mg by ity of capsule 22:15: mouth [place] 49 daily. Medical Branch propranoloL 2019-03 Yes 10mg Take 10 mg Univers 10 mg 2-31 by mouth 2 ity of tablet 22:15: (two) [place] 49 times Medical daily. Branch lamoTRIgine 2019-03 Yes 100mg Take 100 U nivers (LAMICTAL) 2-31 mg by ity of 100 mg 22:15: mouth 2 [place] tablet 49 (two) Medical times Branch daily. omeprazole 2019-03 Yes 40mg Take 40 mg U nivers 40 mg 2-31 by mouth ity of capsule 22:15: daily. [place] 49 Medical Branch DULOXETINE 2019-03 Yes 60mg Take 60 mg U nivers HCL 2-31 by mouth 2 ity of (CYMBALTA 22:15: (two) [place] ORAL) 49 times Medical daily. Branch LITHIUM 2019-03 Yes 150mg Take 150 Unive rs CITRATE 2-31 mg by ity of ORAL 22:15: mouth 2 [place] 49 (two) Medical times Branch daily. TRAZODONE 2019-03 Yes 100mg Take 100 Uni vers HCL 2-31 mg by ity of (TRAZODONE 22:15: mouth at [place] ORAL) 49 bedtime. Medical Branch Biotin 2019-03 Yes 1{capsu Take 1 Univer s 10,000 mcg 2-31 le} capsule by ity of Cap 22:15: mouth [place] 49 daily. Medical Branch multivitami 2019-03 Yes 1{tbl} Take 1 Un vinicio n, 2-31 tablet by ity of [place]-minerals 22:15: mouth [place] (COMPLETE 49 daily. Medical MULTIVITAMI Branch N) tablet gabapentin 2019-03 Yes 600mg Take 600 Un vinicio 300 mg 2-31 mg by ity of capsule 22:15: mouth [place] 49 daily. Medical Branch propranoloL 2019-03 Yes 10mg Take 10 mg Univers 10 mg 2-31 by mouth 2 ity of tablet 22:15: (two) [place] 49 times Medical daily. Branch lamoTRIgine 2019-03 Yes 100mg Take 100 U nivers (LAMICTAL) 2-31 mg by ity of 100 mg 22:15: mouth 2 [place] tablet 49 (two) Medical times Branch daily. omeprazole 2019-03 Yes 40mg Take 40 mg U nivers 40 mg 2-31 by mouth ity of capsule 22:15: daily. [place] 49 Medical Branch DULOXETINE 2019- Yes 60mg Take 60 mg U nivers HCL 2-31 by mouth 2 ity of (CYMBALTA 22:15: (two) [place] ORAL) 49 times Medical daily. Branch LITHIUM 2019-03 Yes 150mg Take 150 Unive rs CITRATE 2-31 mg by ity of ORAL 22:15: mouth 2 [place] 49 (two) Medical times Branch daily. TRAZODONE 2019-03 Yes 100mg Take 100 Uni vers HCL 2-31 mg by ity of (TRAZODONE 22:15: mouth at [place] ORAL) 49 bedtime. Medical Branch Biotin 2019-03 Yes 1{capsu Take 1 Univer s 10,000 mcg 2-31 le} capsule by ity of Cap 22:15: mouth [place] 49 daily. Medical Branch multivitami 2019-03 Yes 1{tbl} Take 1 Un vinicio n, 2-31 tablet by ity of tx-minerals 22:15: mouth [place] (COMPLETE 49 daily. Medical MULTIVITAMI Branch N) tablet gabapentin 2019-03 Yes 600mg Take 600 Un vinicio 300 mg 2-31 mg by ity of capsule 22:15: mouth [place] 49 daily. Medical Branch propranoloL 2019-03 Yes 10mg Take 10 mg Univers 10 mg 2-31 by mouth 2 ity of tablet 22:15: (two) [place] 49 times Medical daily. Branch lamoTRIgine 2019-03 Yes 100mg Take 100 U nivers (LAMICTAL) 2-31 mg by ity of 100 mg 22:15: mouth 2 [place] tablet 49 (two) Medical times Branch daily. omeprazole 2019-03 Yes 40mg Take 40 mg U nivers 40 mg 2-31 by mouth ity of capsule 22:15: daily. [place] 49 Medical Branch DULOXETINE 2019-03 Yes 60mg Take 60 mg U nivers HCL 2-31 by mouth 2 ity of (CYMBALTA 22:15: (two) [place] ORAL) 49 times Medical daily. Branch LITHIUM 2019-03 Yes 150mg Take 150 Unive rs CITRATE 2-31 mg by ity of ORAL 22:15: mouth 2 [place] 49 (two) Medical times Branch daily. TRAZODONE 2019-03 Yes 100mg Take 100 Uni vers HCL 2-31 mg by ity of (TRAZODONE 22:15: mouth at [place] ORAL) 49 bedtime. Medical Branch Biotin 2019-03 Yes 1{capsu Take 1 Univer s 10,000 mcg 2-31 le} capsule by ity of Cap 22:15: mouth [place] 49 daily. Medical Branch multivitami 2019-03 Yes 1{tbl} Take 1 Un vinicio n, 2-31 tablet by ity of tx-minerals 22:15: mouth [place] (COMPLETE 49 daily. Medical MULTIVITAMI Branch N) tablet gabapentin 2019-03 Yes 600mg Take 600 Un vinicio 300 mg 2-31 mg by ity of capsule 22:15: mouth [place] 49 daily. Medical Branch propranoloL 2020- Yes 10mg Take 10 mg Univers 10 mg 2-31 by mouth 2 ity of tablet 22:15: (two) [place] 49 times Medical daily. Branch lamoTRIgine 2019-03 Yes 100mg Take 100 U nivers (LAMICTAL) 2-31 mg by ity of 100 mg 22:15: mouth 2 [place] tablet 49 (two) Medical times Branch daily. omeprazole 2020- Yes 40mg Take 40 mg U nivers 40 mg 2-31 by mouth ity of capsule 22:15: daily. [place] 49 Medical Branch DULOXETINE 2019-03 Yes 60mg Take 60 mg U nivers HCL 2-31 by mouth 2 ity of (CYMBALTA 22:15: (two) [place] ORAL) 49 times Medical daily. Branch LITHIUM 2019-03 Yes 150mg Take 150 Unive rs CITRATE 2-31 mg by ity of ORAL 22:15: mouth 2 [place] 49 (two) Medical times Branch daily. TRAZODONE 2019-03 Yes 100mg Take 100 Uni vers HCL 2-31 mg by ity of (TRAZODONE 22:15: mouth at [place] ORAL) 49 bedtime. Medical Branch Biotin 2019-03 Yes 1{capsu Take 1 Univer s 10,000 mcg 2-31 le} capsule by ity of Cap 22:15: mouth [place] 49 daily. Medical Branch multivitami 2019-03 Yes 1{tbl} Take 1 Un vinicio n, 2-31 tablet by ity of [place]-minerals 22:15: mouth [place] (COMPLETE 49 daily. Medical MULTIVITAMI Branch N) tablet gabapentin 2019-03 Yes 600mg Take 600 Un vinicio 300 mg 2-31 mg by ity of capsule 22:15: mouth [place] 49 daily. Medical Branch propranoloL 2019- Yes 10mg Take 10 mg Univers 10 mg 2-31 by mouth 2 ity of tablet 22:15: (two) [place] 49 times Medical daily. Branch lamoTRIgine 2019-03 Yes 100mg Take 100 U nivers (LAMICTAL) 2-31 mg by ity of 100 mg 22:15: mouth 2 [place] tablet 49 (two) Medical times Branch daily. omeprazole 2019- Yes 40mg Take 40 mg U nivers 40 mg 2-31 by mouth ity of capsule 22:15: daily. [place] 49 Medical Branch flu vaccine 2019-03 2020- No .7mL 0.7 mL, Un vinicio 63 yrs and 2- 12-31 Intramuscu it y of up(PF) 21:45: 21:57 [place]CE, [place] (FLUZONE 00 :00 1 dose, Medical HIGHDOSE [place] Branch QUAD 20-21 03/03/20 PF) syringe at 1545, 0.7 mL Routine pneumococca 2019-03 2020- No .5mL 0.5 mL, Un vinicio l vac - 12- Intramuscu ity of polyvalent 21:30: 22:01 lar, ONCE, [place] (PNEUMOVAX- 00 :00 1 dose, Medic al 23) [facility] Branch injection 03/03/20 0.5 mL at 1530, Routine LEVOTHYROXI 2019-03 2020- No 125ug Take 125 Univers NE SODIUM 2-31 12-31 mcg by ity of (LEVOTHYROX 20:28: 00:00 mouth [place] INE ORAL) 51 :00 daily. Medical Branch levothyroxi 2019-03 2020- No 125ug Take 125 Univers ne 200 mcg 2-31 12-31 mcg by ity of tablet 20:28: 00:00 mouth [place] 51 :00 every Medical morning. Branch DULOXETINE 2019-03 Yes 60mg Take 60 mg U nivers HCL 2-31 by mouth 2 ity of (CYMBALTA 16:15: (two) [place] ORAL) 49 times Medical daily. Branch LITHIUM 2019-03 Yes 150mg Take 150 Unive rs CITRATE 2-31 mg by ity of ORAL 16:15: mouth 2 [place] 49 (two) Medical times Branch daily. TRAZODONE 2019-03 Yes 100mg Take 100 Uni vers HCL 2-31 mg by ity of (TRAZODONE 16:15: mouth at [place] ORAL) 49 bedtime. Medical Branch Biotin 2019-03 Yes 1{capsu Take 1 Univer s 10,000 mcg 2-31 le} capsule by ity of Cap 16:15: mouth [place] 49 daily. Medical Branch multivitami 2019-03 Yes 1{tbl} Take 1 Un vinicio n, 2-31 tablet by ity of tx-minerals 16:15: mouth [place] (COMPLETE 49 daily. Medical MULTIVITAMI Branch N) tablet gabapentin 2019- Yes 600mg Take 600 Un vinicio 300 mg 2-31 mg by ity of capsule 16:15: mouth [place] 49 daily. Medical Branch propranoloL 2019- Yes 10mg Take 10 mg Univers 10 mg 2-31 by mouth 2 ity of tablet 16:15: (two) [place] 49 times Medical daily. Branch lamoTRIgine 2019-03 Yes 100mg Take 100 U nivers (LAMICTAL) 2-31 mg by ity of 100 mg 16:15: mouth 2 [place] tablet 49 (two) Medical times Branch daily. omeprazole 2019- Yes 40mg Take 40 mg U nivers 40 mg 2-31 by mouth ity of capsule 16:15: daily. [place] 49 Medical Branch DULOXETINE 2019- Yes 60mg Take 60 mg U nivers HCL 2-31 by mouth 2 ity of (CYMBALTA 16:15: (two) [place] ORAL) 49 times Medical daily. Branch LITHIUM 2019-03 Yes 150mg Take 150 Unive rs CITRATE 2-31 mg by ity of ORAL 16:15: mouth 2 [place] 49 (two) Medical times Branch daily. TRAZODONE 2019-03 Yes 100mg Take 100 Uni vers HCL 2-31 mg by ity of (TRAZODONE 16:15: mouth at [place] ORAL) 49 bedtime. Medical Branch Biotin 2019-03 Yes 1{capsu Take 1 Univer s 10,000 mcg 2-31 le} capsule by ity of Cap 16:15: mouth [place] 49 daily. Medical Branch multivitami 2019-03 Yes 1{tbl} Take 1 Un vinicio n, 2-31 tablet by ity of tx-minerals 16:15: mouth [place] (COMPLETE 49 daily. Medical MULTIVITAMI Branch N) tablet gabapentin 2019- Yes 600mg Take 600 Un vinicio 300 mg 2-31 mg by ity of capsule 16:15: mouth [place] 49 daily. Medical Branch propranoloL 2019- Yes 10mg Take 10 mg Univers 10 mg 2-31 by mouth 2 ity of tablet 16:15: (two) [place] 49 times Medical daily. Branch lamoTRIgine 2019-03 Yes 100mg Take 100 U nivers (LAMICTAL) 2-31 mg by ity of 100 mg 16:15: mouth 2 [place] tablet 49 (two) Medical times Branch daily. omeprazole 2020- Yes 40mg Take 40 mg U nivers 40 mg by mouth ity of capsule 16:15: daily. [place] 49 Medical Branch levothyroxi 2019-03- No [id number] 125ug Take 1 Univers ne 125 mcg 04-03 tablet by ity of tablet 00:00: 05:59 mouth [place] 00 :00 every Medical morning Branch for 30 days. albuterol 2019-03- No [id number] 2{puff} Inhale 2 Univers 90 04-03 Puffs 4 ity of mcg/actuati 00:00: 05:59 (four) [place] as on inhaler 00 :00 times Medical daily for Branch 30 days. levothyroxi 2019-03- No [id number] 125ug Take 1 Univers ne 125 mcg 04-03 tablet by ity of tablet 00:00: 05:59 mouth [place] 00 :00 every Medical morning Branch for 30 days. albuterol 2019-03- No [id number] 2{puff} Inhale 2 Univers 90 04-03 Puffs 4 ity of mcg/actuati 00:00: 05:59 (four) [place] as on inhaler 00 :00 times Medical daily for Branch 30 days. levothyroxi 2019-03- No [id number] 125ug Take 1 Univers ne 125 mcg 04-03 tablet by ity of tablet 00:00: 05:59 mouth [place] 00 :00 every Medical morning Branch for 30 days. albuterol 2019-03- No [id number] 2{puff} Inhale 2 Univers 90 04-03 Puffs 4 ity of mcg/actuati 00:00: 05:59 (four) [place] as on inhaler 00 :00 times Medical daily for Branch 30 days. levothyroxi 2019-03- No [id number] 125ug Take 1 Univers ne 125 mcg 04-03 tablet by ity of tablet 00:00: 05:59 mouth [place] 00 :00 every Medical morning Branch for 30 days. albuterol 2019-03- No [id number] 2{puff} Inhale 2 Univers 90 04-03 Puffs 4 ity of mcg/actuati 00:00: 05:59 (four) [place] as on inhaler 00 :00 times Medical daily for Branch 30 days. lamoTRIgine 2019-03 2020- No 100mg Take 100 Univers (LAMICTAL) 2-30 12-29 mg by ity of 100 mg 22:05: 00:00 mouth 2 [place] tablet 21 :00 (two) Medical times Branch daily. ibuprofen 2019-03 Yes 400mg 400 mg, Univ ers (IBU) 2-30 Oral, ity of tablet 400 20:45: Q6HPRN, [place] mg 04 Starting Medical Sat Branch 03/02/20 at 1445, Until Discontinu ed, Routine, Pain (scale 4-6) sulfur 2019-03 2020- No 5mL 5 mL, Univers hexafluorid 230 12-30 Intravenou i ty of e microsphr 20:15: 18:35 s, ONCE, 1 [place] (LUMASON) 00 :00 dose, Wed Medic al injection 5 03/02/20 Bran ch mL at 1415, Routine
presentation team member approving Restricted medication : LIZETH HERNANDEZ lithium 2019-03 Yes 300mg 300 mg, Univer s carbonate 2-30 Oral, ity of (LITHONATE) 17:45: DAILY, [place] capsule 300 00 First dose Me dical mg (after Branch last modificati on) on Sat03/02/20 at 1145, Until Discontinu ed, Routine iohexol 2019-03 2020- No 100mL 100 mL, Unive rs (OMNIPAQUE 2-30 1230 Intravenou it y of 350 16:45: 16:32 s, ONCE, 1 [place] BULK-100 00 :00 dose, Wed Medica l mL) 03/02/20 Branch injection at 1045, 100 mL Routine omeprazole 2019-03 Yes 40mg 40 mg, Unive rs (PRILOSEC) 2-30 Oral, ity of capsule 40 15:00: DAILY, [place] mg 00 First dose Medical on Sat Branch 03/02/20 at 0900, Until Discontinu ed gabapentin 2019-03 Yes 600mg 600 mg, Uni vers (NEURONTIN) 2-30 Oral, ity of tablet 600 15:00: DAILY, [place] mg 00 First dose Medical on Sat Branch 03/02/20 at 0900, Until Discontinu ed, Routine albuterol 2019-03 Yes 2{puff} 2 Puff, Un vinicio (VENTOLIN) 2-30 Inhalation ity of inhaler 2 14:00: , QID, [place] Puff 00 First dose Medical on [facility] Branch 03/02/20 at 0800, Until Discontinu ed, Routine
Is this order for a patient with suspected or confirmed COVID-19 infection? Yes propranoloL 2019-03 Yes 10mg 10 mg, Univ ers (INDERAL) 2-30 Oral, BID, ity of tablet 10 14:00: [place] dose [place] 00 on [facility] 03/02/20 Branch at 0800, Until Discontinu ed, Routine lamoTRIgine 2019-03 Yes 100mg 100 mg, Un vinicio (LAMICTAL) 2-30 Oral, BID, ity of tablet 100 14:00: First dose [place] mg 00 on [facility] 03/02/20 Branch at 0800, Until Discontinu ed, Routine DULoxetine 2019-03 Yes 60mg 60 mg, Unive rs (CYMBALTA) 2-30 Oral, BID, ity of capsule 60 14:00: First dose [place] mg 00 on [facility] 03/02/20 Branch at 0800, Until Discontinu ed levothyroxi 2019-03 Yes 125ug 125 mcg, U nivers ne 2-30 Oral, ity of (SYNTHROID) 12:00: QAM-0600, [place] tablet 125 00 First dose Med ical mcg on [facility] Branch 03/02/20 at 0600, Until Discontinu ed, Routine traZODone 2019-03 Yes 100mg 100 mg, Univ ers (DESYREL) 2-30 Oral, QHS, ity of tablet 100 06:30: First dose [place] mg 00 on [facility] 03/02/20 Branch at 0030, Until Discontinu ed TOPIRAMATE 2019-03 2020- No 100mg Take 100 U nivers (TOPAMAX 2-30 12-29 mg by ity of ORAL) 06:29: 00:00 mouth 2 [place] 00 :00 (two) Medical times Branch daily. escitalopra 2019-03 2020- No 20mg Take 20 mg Univers m oxalate 2-30 12-29 by mouth ity o f (LEXAPRO) 06:29: 00:00 daily. [place] 20 mg 00 :00 Medical tablet Branch Dexlansopra 2019-03 2020- No 60mg Take 60 mg Univers zole 03-01 by mouth ity of (DEXILANT) 06:29: 00:00 daily. [place] 60 mg 00 :00 Medical capsule Branch albuterol 2019-03 Yes 2{puff} 2 Puff, Un vinicio (VENTOLIN) -30 Inhalation ity of inhaler 2 06:27: , Q6HPRN, [place] as Puff 24 Starting Medical [facility] Branch 03/02/20 at 0027, Until Discontinu ed, Routine, Wheezing, Shortness of Breath, Bronchospa sm, Chest tightness< br>Is this order for a patient with suspected or confirmed COVID-19 infection? Yes guaiFENesin 2019-03 Yes 400mg 400 mg, Un vinicio (FENESIN 2-30 Oral, ity of IR) tablet 06:27: Q4HPRN, [place] 400 mg 16 Starting Medical [facility] Branch 03/02/20 at 0027, Until Discontinu ed, Routine, Cough ondansetron 2019-03 Yes 4mg 4 mg, Slow Univers (ZOFRAN IV Push, ity of (PF)) 06:26: Q6HPRN, [place] injection 4 10 Starting Medi adriano mg [facility] Branch 03/02/20 at 0026, Until Discontinu ed, Routine, Nausea and Vomiting (N/V) acetaminoph 2019-03 Yes 650mg 650 mg, Un vinicio en 2-30 Oral, ity of (TYLENOL) 06:20: Q6HPRN, [place] tablet 650 40 Starting Medic al mg [facility] Branch 03/02/20 at 0020, Until Discontinu ed, Routine, Pain (scale 1-3) enoxaparin 2019-03 2020- No 1mg/kg 70 mg Uni vers (LOVENOX) 03-01 (rounded ity o f injection 00:15: 23:23 [place] 72.6 [place] 70 mg 00 :00 mg = 1 Medical mg/kg Branch ?72.6 kg), Subcutaneo us, ONCE, 1 dose, 03/01/20 at 1815, RAMO ondansetron 2019-03 2020- No 4mg 4 mg, Slow Univers (ZOFRAN 03-01 IV Push, ity of (PF)) 21:15: 20:37 ONCE, 1 [place] injection 4 00 :00 dose, [facility] Med ical mg 03/01/20 Branch at 1515, RAMO morpHINE 2019-03 2020- No 4mg 4 mg, Slow Un vinicio injection 4 03-01 IV Push, ity of mg 21:15: 20:39 ONCE, 1 [place] 00 :00 dose, [facility] 03/01/20 Branch at 1515, STAT aspirin 2019-03- No 325mg 325 mg, Unive rs tablet 325 03-01 Oral, ity of mg 18:15: 18:53 ONCE, 1 [place] 00 :00 dose, [facility] 03/01/20 Branch at 1215, STAT Fluticasone Fluticasone Yes Mary [address] [facility] Propionate Propionate 2-17 [place] in each [facility] - 00:[facility]: nostril [facility] Albuterol Albuterol Yes Mary [address] [facility] Sulfate HFA Sulfate HFA 2-17 [place] needed [facility] - 00:[facility]: [facility] LEVOTHYROXI 2017-0 Yes 175ug Take 175 U nivers NE SODIUM 6-20 mcg by ity of (LEVOTHYROX 16:42: mouth [place] INE ORAL) 24 daily. Medical Branch DULOXETINE 0 Yes 60mg Take 60 mg U nivers HCL 6-20 by mouth 2 ity of (CYMBALTA 16:42: (two) [place] ORAL) 24 times Medical daily. Branch TOPIRAMATE 0 Yes 100mg Take 100 Un vinicio (TOPAMAX 6-20 mg by ity of ORAL) 16:42: mouth 2 [place] 24 (two) Medical times Branch daily. LITHIUM 2018-0 Yes 300mg Take 300 Unive rs CITRATE 6-20 mg by ity of ORAL 16:42: mouth [place] 24 daily. Medical Branch TRAZODONE 2018-0 Yes 100mg Take 100 Uni vers HCL 6-20 mg by ity of (TRAZODONE 16:42: mouth at Robert as ORAL) 24 bedtime. Medical Branch escitalopra 2018-0 Yes 20mg Take 20 mg Univers m oxalate 6-20 by mouth ity of (LEXAPRO) 16:42: daily. [place] 20 mg 24 Medical tablet Branch Dexlansopra 0 Yes 60mg Take 60 mg Univers zole 6-20 by mouth ity of (DEXILANT) 16:42: daily. [place] 60 mg 24 Medical capsule Branch levothyroxi Yes 200ug Take 200 U nivers ne 200 mcg 6-20 mcg by ity of tablet 16:42: mouth [place] 24 every Medical morning. Branch Biotin 2018 Yes 1{capsu Take 1 Univer s 10,000 mcg 6-20 le} capsule by ity of Cap 16:42: mouth [place] 24 daily. Medical Branch multivitami Yes 1{tbl} Take 1 Un vinicio n, 6-20 tablet by ity of [place]-minerals 16:42: mouth [place] (COMPLETE 24 daily. Medical MULTIVITAMI Branch N) tablet gabapentin Yes 600mg Take 600 Un vinicio 300 mg 6-20 mg by ity of capsule 16:42: mouth [place] 24 daily. Medical Branch inhalationa Yes [id number] May Un vinicio l spacing 2-16 substitute ity of device 00:00: other spacing [facility] Branch inhalationa Yes [id number] May Un vinicio l spacing 2-16 substitute ity of device 00:00: other [place] spacing [facility] Branch inhalationa Yes [id number] May Un vinicio l spacing 2-16 substitute ity of device 00:00: other spacing [facility] Branch inhalationa Yes [id number] May Un vinicio l spacing 2-16 substitute ity of device 00:00: other spacing [facility] Branch inhalationa Yes [id number] May Un vinicio l spacing 2-16 substitute ity of device 00:00: other spacing [facility] Branch inhalationa 0 Yes [id number] May Un vinicio l spacing 2-16 substitute ity of device 00:00: other spacing [facility] Branch HYDROcodone Yes [id number] 1/2 - 1 Univers -acetaminop 2-16 Q4h PRN ity o f hen 5-325 00:00: pain or [place] mg tablet 00 cough Medical requiring Branch Narcotic inhalationa Yes [id number] May Un vinicio l spacing 2-16 substitute ity of device 00:00: other spacing [facility] Branch inhalationa Yes [id number] May Un vinicio l spacing 2-16 substitute ity of device 00:00: other [place] [address] [facility] Branch HYDROcodone 2020- No [id number] 03/05 Univers -acetaminop 2-16 12- Q4h PRN ity of hen 5-325 00:00: 00:00 pain or [place] mg tablet 00 :00 cough Medical requiring Branch Narcotic traMADOL 2016-03 Yes 50mg Take 1 Univers (ULTRAM) 50 2-02 tablet by ity of mg tablet 00:00: mouth [place] 00 every 6 Medical (six) Branch hours as needed for Pain (scale 4-6). traMADOL 2016-03- No 50mg Take 1 Univer s (ULTRAM) 50 2-04 15- tablet by it y of mg tablet 00:00: 00:00 mouth [place] 00 :00 every 6 Medical (six) Branch hours as needed for Pain (scale 4-6). esomeprazol Yes 40mg Take 1 Univ ers e (NEXIUM) 8-14 capsule by ity of 40 mg 00:00: mouth [place] capsule 00 daily with Medica l breakfast. Branch esomeprazol 2020- No 40mg Take 1 Uni vers e (NEXIUM) 8-14 -29 capsule by it y of 40 mg 00:00: 00:00 mouth [place] capsule 00 :00 daily with Medica l breakfast. Branch Cymbalta Cymbalta Yes Mary [address] [facility] Trazodone Trazodone Yes Mary [address] [facility] HCl HCl [place] at bedtime [facility] Lamictal Lamictal Yes Mary [address] [facility] Levothyroxi Levothyroxi Yes Mary [address] [facility] ne Sodium ne Sodium [place] in the [facility] - morning on Memoria an empty l stomach Outpati ent Clinics Biotin Biotin Yes Mary [address] [facility] [facility] CarBAMazepi CarBAMazepi Yes Mary as [facility] ne ER ne ER [facility] directed Luke s - (Antipsych) (Antipsych) M emoria l Outpat[facility] ent Clinics Yes Mary [address] [facility] Yes Mary [address] [facility] [facility] Carbonate Carbonate [place] at bedtime [facility] Omeprazole Omeprazole Yes Mary [address] [facility] [facility] Clinics Immunizations Ordered Filled Immunization Date Status Comments [facility] e Immunization Name Name Pneumococcal 2020-03-03 Completed University o f Polysaccharide, 00:00:00 [place] Med ical PPSV23 (PNEUMOVAX) Branch Influenza High Dose 2020-03-03 Completed Unive rsity of Quad 00:00:00 [facility] Pneumococcal 2020-03-03 Completed University o f Polysaccharide, 00:00:00 [place] Med ical PPSV23 (PNEUMOVAX) Branch Influenza High Dose 2020-03-03 Completed Unive rsity of Quad 00:00:00 [facility] Pneumococcal 2020-03-03 Completed University o f Polysaccharide, 00:00:00 [place] Med ical PPSV23 (PNEUMOVAX) Branch Influenza High Dose 2020-03-03 Completed Unive rsity of [place] 00:00:00 [facility] Pneumococcal 2020-03-03 Completed University o f Polysaccharide, 00:00:00 [place] Med ical PPSV23 (PNEUMOVAX) Branch Influenza High Dose 2020-03-03 Completed Unive rsity of [place] 00:00:00 [facility] Pneumococcal 2020-03-03 Completed University o f Polysaccharide, 00:00:00 [place] Med ical PPSV23 (PNEUMOVAX) Branch Influenza High Dose 2020-03-03 Completed Unive rsity of [place] 00:00:00 [facility] Pneumococcal 2020-03-03 Completed University o f Polysaccharide, 00:00:00 [place] Med ical PPSV23 (PNEUMOVAX) Branch Influenza High Dose 2020-03-03 Completed Unive rsity of Quad 00:00:00 [facility] Pneumococcal 2020-03-03 Completed University o f Polysaccharide, 00:00:00 [place] Med ical PPSV23 (PNEUMOVAX) Branch Influenza High Dose 2020-03-03 Completed Unive rsity of Quad 00:00:00 [facility] Vital Signs Vital Name Observation Time Observation Value Comments Source Systolic blood 2021-04-11 15:01:00 127 [facility]Hg[facility] Diastolic blood 2021-04-11 15:01:00 75 mm[facility]Hg[facility] Heart rate 2021-04-11 15:01:00 60 [facility] weight 2021-04-11 15:01:00 [facility] 2021-04[facility]11 [facility]01[facility] 2021-01-17 16:01:00 116 mm[facility]Hg[facility] Diastolic blood 2021-01-17 16:01:00 75 mm[Hg] [facility] Heart rate 2021-01-17 16:01:00 57 [facility]min [facility] Body height 2021-01-17 16:01:00 [facility]6 [facility] weight 2021-01-17 16:01:00 [facility]04 [facility] BMI 2021-01-17 16:01:00 25[facility]75 [facility] 2020-03-03 17:01:00 149 mm[Hg] Univer sity [facility] Diastolic blood 2020-03-03 17:01:00 82 mm[Hg] Unive rsity [facility] Heart rate 2020-03-03 17:01:00 75 /min [facility] Body temperature 2020-03-03 17:01:00 37.06 [place] [facility] Respiratory rate 2020-03-03 17:01:00 18 /min [facility] Oxygen saturation in 2020-03-03 17:01:00 97 /min [facility] blood by [facility] Pulse oximetry Branch Body weight 2020-03-03 09:55:00 74.447 kg [facility] BMI 2020-03-03 09:55:00 28.17 kg/m2 [facility] Body height 2020-03-02 03:16:00 162.6 cm [facility] Procedures Procedure Date / Time Performing Clinician Source Performed ECG 12-LEAD 2021-04-11 15:07:00 Cassius Ramirez [facility] ECG 12-LEAD 2021-01-17 16:11:00 Cassius Ramirez [facility] ASSIGNMENT OF BENEFITS 2020-12-13 16:25:31 Doctor Unassigned, No [facility] ASSIGN[facility] OF BENEFITS 2020-07-13 13:51:40 Doctor Unassigned, No [facility] Name Medical Branch TROPONIN I 2020-03-03 09:24:00 [facility] COMP. METABOLIC PANEL 2020-03-03 09:24[facility]00 [id number] Branch LITHIUM 2020-03-03 09:24:00 [facility]FF 2020-03-03 09:24:00 [facility] ECHO ROUTINE W/DOPPLER 2020-03-02 18:05:50 Natalya Su [facility] COLOR [facility] Branch CT CHEST PULMONARY 2020-03-02 16:39:[facility] Branch TROPONIN I 2020-03-02 09:54:00 Felix [facility] COMP. METABOLIC PANEL 2020-03-02 09:54:00 [facility] ([id number] Medical Branch LITHIUM 2020-03-02 09:54:00 Georges [facility] D-DIMER 2020-03-02 09:54:00 [facility] PROCALCITONIN 2020-03-02 09:54:00 [facility] COVID-19 (MOLECULAR 2020-03-02 01:47:00 Samina Monte [facility] NUCLEIC ACID AMPLIFICATION) TROPONIN I 2020-03-01 21:13:00 Samina Monte [facility] URINALYSIS 2020-03-01 20:37:00 Samina Monte [facility] HB ECG ROUTINE & RHYTHM 2020-03-01 19:58:59 Samina Monte [facility] STRIP Medical Branch XR CHEST 1 VW 2020-03-01 19:27:43 Samina Monte [facility] COVID-19 (ID NOW RAPID 2020-03-01 18:45:00 Samina Monte [facility]) Medical Branch TROPONIN I 2020-03-01 18:42:00 Samina Monte [facility] HEPATIC FUNCTION PANEL 2020-03-01 18:42:00 Samina Monte [facility] ([id number]) (ALB,T.PRO,BILI [facility] Branch T,BU/BC,ALT,AST,ALK PHOS) BASIC METABOLIC PANEL 2020-03-01 18:42:00 Samina Monte [facility] (NA, K, CL, CO2, Medical Branch GLUCOSE, BUN, CREATININE, CA) CBC WITH DIFF 2020-03-01 18:42:00 Samina Monte [facility] PROTHROMBIN TIME / INR 2020-03-01 18:42:00 Samina Monte [facility] N-TERMINAL PRO-BNP 2020-03-01 18:42:00 Samina Monte [facility] HB ECG ROUTINE & RHYTHM 2020-03-01 18:19:10 Samina Monte [facility] NOTICE OF PRIVACY 2020-03-01 17:59:26 Doctor Unassigned, No [facility] PRACTICES Name [facility] Er CONSENT/REFUSAL FOR 2020-03-01 17:57:15 [facility] AUTHORIZATION FOR 2019-12-01 05:01:00 Doctor Unassigned, No [facility] RELEASE OF PHI Name [facility] Er Encounters Start End Encounter Admission Attending Care Care Encounter Source Date/Time Date/Time Type Type Clinicians Facility Department ID 2021-04-11 Outpatient HEMATPOUR, [facility] [id number] [place] 09:55:10 CASSIUS Garcia h 2021-03-29 Outpatient Viv [facility] [id number] 11:51:21 Mary [id number] [facility] 2021-03-29 Outpatient Viv [facility] [id number] 11:50:06 Mary 08561 [facility] 2021-03-29 Outpatient Viv [facility] [id number] 11:37:49 Mary 97821 [facility] 2021-03-29 Outpatient Viv [facility] [id number] 11:08:10 Mary 37609 [facility] 2021-03-29 Outpatient Viv, [facility] [id number] 11:03:08 Mary 02910 [facility] 2021-01-03 Outpatient R [facility] [id number] Univers 02:40:07 GARRETT Morin [facility] [place] [facility] 2020-12-31 Emergency [facility] [id number] Univers 13:37:29 [facility] [place] [facility] 2021-04-11 2021-04-11 Office Hematpour, [facility] 1.2.840.114 [id number] [place] 09:45:00 09:55:09 Visit Khashayar SE MED [id number] Health [place] 2 [id number] 2021-03-24 2021-03-25 Outpatient HEMATPOUR, [facility] CAR [id number] [facility] 05:57:00 09:50:00 KHASHAYAR 2021-03-22 2021-03-22 Outpatient R [facility] [id number] Univers 12:00:00 12:00:00 [id number] [facility] [place] [facility] 2021-03-14 2021-03-14 Telemedici Hematpour, [facility] 1.2.840.114 [id number] [place] 11:00:00 11:12:43 ne Khashayar SE MED [id number] Health [place] 2 [id number] 2 2021-01-17 2021-01-17 Office Hematpour, [facility] 1.2.840.114 [id number] [place] 09:58:26 10:50:06 Visit Khashayar SE MED [id number] Health [place] 2 [id number] [id number] 2 2021-01-16 2021-01-16 Telephone Hematpour, [facility] 1.2.840.114 [id number] [place] 00:00:00 00:00:00 Khashayar SE MED [id number] Health [place] 2 [id number] [id number] 2 2021-01-16 2021-01-16 Abstract Chelsie Scales [facility] 1.2.840.11 [id number] [place] 00:00:00 00:00:00 Chelsie Scales [facility] [id number] [place] [address] [id number] [id number] 2 2020-12-13 2020-12-13 Laboratory Only, Adc Test [facility] 1.2.840. 114 [id number] Univers 11:27:54 11:42:54 Only Garrett Herrmann 350.1.1 3.10 ity of [place] 4.2.7.2.686 [facility] [id number] [place] [address] Branch 2020-12-13 2020-12-13 Outpatient R [facility] [id number] Univers 08:45:00 08:45:00 [id number] ity of [facility] 2020-12-13 2020-12-13 Outpatient R LEATHA [facility] [id number] Univers 08:45:00 08:45:00 GARRETT Morin ity o f [facility] 2020-12-13 2020-12-13 Orders Doctor ODALIS 1.2.840.114 [id number] Univers 00:00:00 00:00:00 Only Unassigned, ETRESA [id number] [facility] [id number] [facility] [id number] [place] [address] Branch 2020-11-23 2020-11-23 [facility] [id number] [facility] 2020-11-22 2020[facility]11-22 [facility] [id number] 2020-07-13 2020-07-13 Outpatient R [facility] [id number] Univers 07:00:00 07:00:00 [id number] ity [facility] 2020-07-13 2020-07-13 Outpatient [facility] [id number] Univers 00:00:00 00:00:00 YAKOVNGJUN ity o f [facility] 2020-07-13 2020-07-13 Orders Doctor ODALIS 1.2.840.114 [id number] Univers 00:00:00 00:00:00 Only Unassigned, TERESA [id number] ity of [place] [facility] [id number] Robert as [id number] [facility] 009 Branch 2020-05-31 2020-05-31 Outpatient [facility] [id number] [facility]00 [facility]ester caal Outpat[facility] Clinics 2020-03-07 2020-03-07 Transition Kourtney Collins 1.2.840.114 [id number] 00:00:00 00:00:00 of Care Frank Lugo [id number] [place] [id number] [id number] 2020-03-07 2020-03-07 Telephone [address]te[address] Callaway [facility] 1.2.840.114 [id number] Univers 00:00:00 00:00:00 Dell Mackenzie [id number] i [place].2.[place] [id number] [facility] 081 Branch 2020-03-07 2020-03-07 Transition Kourtney Collins 1.2.840.114 [id number] Univers 00:00:00 00:00:00 of Care Frank Lugo [id number] [place] [id number] [place] [id number] [facility] 403 Branch 2020-03-01 2020-03-03 Emergency Jabier Samina [facility] 1.2.840 .114 [id number] Univers 12:08:00 16:15:00 Keely [place] [id number] [place] 4[place].2.[place] [id number] [facility] 081 Branch 2020-03-01 2020-03-01 Outpatient Kayode CERDA [facility] [id number] Univers 11:40:00 11:40:00 OMAYEMI ity of [facility] 2019-12-10 2019-12-10 [facility] [id number] [facility]00 [facility] 2019-12-04 2019-12-04 [facility] [id number] [facility] 2019-12-01 2019-12-01 [facility] [id number] [facility]00 [facility] 2019-12-01 2019-12-01 Orders Doctor ODALIS 1.2.840.114 [id number] Univers 00:00:00 00:00:00 Only Unassigned, TERESA [id number] ity of [place] [facility] [id number] Robert as [id number] [address] 2019-12-01 2019-12-01 [facility] [id number] [facility]00 [facility] 2019-11-10 2019-11-10 [facility] [id number] 14:30:00 14:30:[address] [facility] Family [facility] l Medicine Outpati ent Clinics 2019-11-04 2019-11-04 [facility] [id number] 10:40:00 10:40:00 t [facility] Family Medicine l Medicine Outpati ent Clinics 2019-10-06 2019-10-06 [facility] [id number] 16:20:00 16:20:00 t [facility] Family Medicine l Medicine Outpati ent Clinics 2019-08-27 2019-08-27 Outpatient [facility] [id number] 16:00:00 16:00:00 [facility] Medicine l Medicine Outpati ent Clinics 2019-05-01 2019-05-01 [facility] [id number] [address] 13:50:00 13:50:[address] [facility] 2019-04-24 2019-04-24 Outpatient Debbie Diehl [id number] 13:53:00 13:53:[address] [facility] 2019-04-20 2019-04-20 Outpatient Debbie Diehl [id number] 10:15:00 10:15:[address] [facility] 2019-03-27 2019-03-27 Outpatient Debbie Diehl [id number] [address] 15:15:00 15:15:[address] [facility] Results Test Description Test Time Test Comments Results Result Comments Source ECG 12 lead 2021-04-11 15:07:00 Test Item Value Reference Range Interpretation Comme nts Lab Interpretation (test code = 56352-9) Abnormal [facility] [id number] 16:11:00 Test Item Value Reference Range Interpretation Comments Lab Interpretation (test code = Abnormal 28092-9) [facility] [id number] 12:30:00 Test Item Value Reference Range Interpretation Comments TROPONIN I (test <0.012 See_Comment [Automated code = 6636336496) message] The system which generated this result transmitted reference range : <=0.034 ng/mL. The reference range was not used to interpr et this result as normal/abnormal . CHERYL (test code = Equal or Less than CHERYL) 0.034 ng/ml---Normal ?Note: Cardiac troponin begins to rise 3-4 hours after the onset of ischemia. Repeat in 4-6 hours if the sample was drawn within 3-4 hours of the onset of the symptom and found normal. Between 0.035 and 0.120 ng/mL--- Borderline. Questionable myocardial injury or necrosis ? ?Note: Serial measurement may be necessary to confirm or exclude the diagnosis of myocardial injury or necrosis; Clinical correlation (symptoms, EKGs, imaging studies, and others) required; Repeat in 4-6 hours if clinically indicated. ? Equal or Higher than 0.121 ng/mL---Abnormal. Myocardial Injury or Necrosis Likely ? Biotin has been reported to cause a negative bias, interpret results relative to patient's use of biotin. ? Lab Interpretation Normal (test code = 98118-2) [facility]. METABOLIC PANEL ([id number])2020-03-03 12:21:00 Test Item Value Reference Range Interpretation Comments NA (test code = 138 mmol/L 135-145 8834636950) K (test code = 4.7 mmol/L 3.5-5 4974308390) CL (test code = 103 mmol/L 98-108 5198377201) CO2 TOTAL (test code = 31 mmol/L 23-31 9646777379) AGAP (test code = 2-16 9157841487) BUN (test code = 19 mg/dL 7-23 3575551310) GLUCOSE (test code = 110 mg/dL 70-110 8447971959) CREATININE (test code = 0.66 mg/dL 0.5-1.04 3489069259) TOTAL BILI (test code = 0.7 mg/dL 0.1-1.7 4610085614) CALCIUM (test code = 9.8 mg/dL 8.6-10.6 7614317092) T PROTEIN (test code = 5.6 g/dL 6.3-8.2 L 3578985220) ALBUMIN (test code = 3.6 g/dL 3.5-5 0491822920) ALK PHOS (test code = 74 U/L 34-122 2913234117) ALTv (test code = 19 U/L 5-35 1742-6) AST(SGOT) (test code = 28 U/L 13-40 4047114799) eGFR Calculation mL/min/1.73m2 (Non-) (test code = 5712004841) eGFR Calculation mL/min/1.73m2 () (test code = 4514676297) CHERYL (test code = CHERYL) Association of Glomerular Filtration Rate (GFR) and Staging of Kidney Disease* + --+ --+ ------+| GFR (mL/min/1.73 m2) ?| With Kidney Damage ?| ?Without Kidney Damage+ --------+ --------+ +| ?>90 ?| ?Stage one ?| ? Normal ?+ ---+ ---+ -------+| ?60-89 ?| ?Stage two ?| ? Decreased GFR ? + --+ --+ ------+| ?30-59 ?| ?Stage three ?| ? Stage three ? + --+ --+ ------+| ?15-29 ?| ?Stage four ? | ? Stage four ?+ ---+ ---+ -------+| ?<15 (or dialysis) ? ?| ?Stage five ? | ? Stage five ?+ ---+ ---+ -------+ *Each stage assumes the associated GFR level has been in effect for at least three months. ?Stages 1 to 5, with or without kidney disease, indicate chronic kidney disease. Notes: Determination of stages one and two (with eGFR >59mL/min/1.73 m2) requires estimation of kidney damage for at least three months as defined by structural or functional abnormalities of the kidney, manifested by either:Pathological abnormalities or Markers of kidney damage (including abnormalities in the composition of the blood or urine or abnormalities in imaging tests). Lab Interpretation Abnormal (test code = 08566-4) [facility] Test Item Value Reference Range Interpretation Comments [place] (test code = 0.3 mmol/L 0.6-1.2 L 0832100444) CHERYL (test code = CHERYL) Toxic Range: ? Greater than 1.2 mmol/L Lab Interpretation (test Abnormal code = 81471-7) [facility] with [id number] 10:20:00 Test Item Value Reference Range Interpretation Comments WBC (test code = See_Comment [Automated 4494-2) message] The sy stem which generated this result transmitted reference range : 4.30 - 11.10 10*3/?L. The reference range was not used to interpret this result as normal/abnormal . RBC (test code = See_Comment [Automated 665-5) message] The sy stem which generated this result transmitted reference range : 3.93 - 5.25 10*6/?L. The reference range was not used to interpret this result as normal/abnormal . HGB (test code = 12.5 g/dL 11.6-15 718-7) HCT (test code = 37.5 % 35.7-45.2 4544-3) MCV (test code = 88.2 fL 80.6-95.5 787-2) MCH (test code = 29.4 pg 25.9-32.8 785-6) MCHC (test code = 33.3 g/dL 31.6-35.1 786-4) RDW-SD (test code = 40.9 fL 39-49.9 20938-2) RDW-CV (test code = 12.8 % 12-15.5 788-0) PLT (test code = See_Comment [Automated 777-3) message] The sy stem which generated this result transmitted reference range : 166 - 358 10*3/ ?L. The reference r favian was not used to interpret this result as normal/abnormal . MPV (test code = 11.0 fL 9.5-12.9 68832-6) NRBC/100 WBC (test See_Comment [Automat ed code = 5000020329) message] The system which generated this result transmitted reference range : 0.0 - 10.0 /100 WBCs. The refer ence range was not u sed to interpret th is result as normal/abnormal . NRBC x10^3 (test code <0.01 See_Comment [Auto mated = 4956034819) message] The s ystem which generated this result transmitted reference range : 10*3/?L. The reference range was not used to interpret this result as normal/abnormal . GRAN MAT (NEUT) % 69.3 % (test code = 770-8) IMM GRAN % (test code 0.20 % = 1187590056) LYMPH % (test code = 22.9 % 736-9) MONO % (test code = 7.4 % 5905-5) EOS % (test code = 0.0 % 713-8) BASO % (test code = 0.2 % 706-2) GRAN MAT x10^3(ANC) 6.19 10*3/uL 1.88-7.09 (test code = 2979141333) IMM GRAN x10^3 (test <0.03 0-0.06 code = 0728631781) LYMPH x10^3 (test code 2.05 10*3/uL 1.32-3.29 = 731-0) MONO x10^3 (test code 0.66 10*3/uL 0.33-0.92 = 742-7) EOS x10^3 (test code = <0.03 0.03-0.39 L 711-2) BASO x10^3 (test code <0.03 0.01-0.07 = 704-7) Lab Interpretation Abnormal (test code = 02937-0) [facility] [id number] 20:15:03 1. ?No acute pulmonary embolism down to the subsegmental branches. 2. ?No acute intrathoracic abnormality identified. 3. ?Left adrenal adenoma. Preliminary Report Dictated by Resident: Devyn Gayle ?MD. Angelica, have reviewed this study and agree withthe above report.PROCEDURE: CT ANGIO CHEST WITH CONTRAST - PE PROTOCOL CLINICAL INDICATION: Dyspnea,chronic, neg or nondiagnostic xray ? COMPARISON: None. TECHNIQUE: ?Helical CT was performed and reconstructed at 1.25 mm slicethickness from lung base to apices after the administration of 100 mLOmnipaque-350 intravenous contrast FINDINGS: PULMONARY ARTERIES:Enhancement is adequate, and there is no acute or chronic pulmonaryembolism down to the proximal subsegmental branches. The pulmonary trunk isnormal in caliber. CHEST: Lungs, pleura and central airways: The lungs are well-expanded and clear.No f ocal opacities are identified. No suspicious nodules. No pleuraleffusion, thickening or pneumothorax. The central airways are unremarkable. Lymph nodes: Scattered small lymph nodes in both sides of themediastinumand hilar regions. No evidence of intrathoracic lymphadenopathy. Righthilar partially calcified lymph nodes noted. Mediastinum: No central airway lesions are detected. Small hiatal hernia isnoted. The included thyroid gland appears normal. Cardiovascular: No detectable coronary arterial calcification. The heart isnormal in size. No pericardial abnormalities are identified: The RV to LVis normal. The thoracic aorta is normal in caliber. Minimal atheroscleroticcalcifications affect the aortic arch. Visualized upper abdomen: The included solid organs and hollow viscusappear within normal limits. Left adrenal 1.3 cm nodule measuring fatdensity, likely represents an adenoma. Thoracic spine and chest wall: No aggressive osseous lesion is identified.The soft tissues appear normal. [facility], Radiant Results Inft User - 03/02/2020 2:16 PM CSTPROCEDURE: CT ANGIO CHEST WITH CONTRAST - PE PROTOCOLCLINICAL INDICATION: Dyspnea, chronic, neg or nondiagnostic xray COMPARISON: None.TECHNIQUE: Helical CT was performed and reconstructed at 1.25 mm slicethickness from lungbase to apices after the administration of 100 mLOmnipaque-350 intravenous contrast FINDINGS:PULMONARY ARTERIES:Enhancement is adequate, and there is no acute or chronic pulmonaryembolism down to the pr oximal subsegmental branches. The pulmonary trunk isnormal in caliber.CHEST:Lungs, pleura and central airways: The lungs are well-expanded and clear.No focal opacities are identified. No suspicious nodules. No pleuraleffusion, thickening or pneumothorax. The central airways are unremarkable.Lymph nodes: Scattered small lymph nodes in both sides of the mediastinumand hilar regions. No evidence of intrathoracic lymphadenopathy. Righthilar partially calcified lymph nodes noted.Mediastinum: No central airway lesions are detected. Small hiatal hernia isnoted. The included thyroid gland appears normal.Cardiovascular: No detectable coronary arterial calcification. The heart isnormal in size. No pericardial abnormalities are identified: The RV to LVis normal. The thoracic aorta is normal in caliber. Minimal atheroscleroticcalcifications affect the aortic arch.Visualized upper abdomen: The included solidorgans and hollow viscusappear within normal limits. Left adrenal 1.3 cm nodule measuring fatdensity, likely represents an adenoma.Thoracic spine and chest wall: No aggressive osseous lesion is identifi ed.The soft tissues appear normal. IMPRESSION1. No acute pulmonary embolism down to the subsegmental branches.2. No acute intrathoracic abnormality identified.3. Left adrenal adenoma. Preliminary Report Dictated by Resident: Devyn Noriega MD., have reviewed this study and agree withthe above report.[facility] COVID-19 [id number] 19:14:00 Test Item Value Reference Range Interpretation Comments SARS-CoV-2 NAAT (test Not Detected Not Detected code = 32159-4) CHERYL (test code = CHERYL) [employer] Aptima SARS-CoV-2 Assay is a nucleic acid amplification test intended for the qualitative detection of RNA from SARS-CoV-2 from nasopharyngeal (SYSTEMS INTEGRATOR) specimens. ?It is used under Emergency Use Authorization (EUA) by FDA. A positive result is indicative of the presence of SARS-CoV-2 RNA. ?Clinical correlation with patient history and other diagnostic information is necessary to determine patient infection status. A negative (Not Detected) result does not preclude SARS-CoV-2 infection. ?Clinical correlation with patient history and other diagnostic information should be used in patient management decisions. Invalid: Unable to generate a valid test result on this specimen. ?Please submit a new specimen for repeat testing if clinically indicated. Lab Interpretation Normal (test code = 38672-5) [facility]2020-12-30 18:21:00 Test Item Value Reference Range Interpretation Comments [place] (test code = 0.4 mmol/L 0.6-1.2 L 6632638452) CHERYL (test code = CHERYL) Toxic Range: ? Greater than 1.2 mmol/L Lab Interpretation (test Abnormal code = 70375-8) [facility]AL[facility]IN2020-12-30 16:59:00 Test Item Value Reference Range Interpretation Comments Procalcitonin (test 0.02 ng/mL <0.07 code = 4759980025) CHERYL (test code = CHERYL) INTERPRETATION OF PROCALCITONIN RESULTS IN ADULTS >= 18 YEARS OF AGE Initiation and discontinuation of antibiotics on patients with suspected or confirmed Lower Respiratory Tract Infection in Adults >= 18 years of age. + +-------- --------+ + -----+|Procalcitonin |Interpretation ?|Antibiotic ? ? |Considerations ? |ng/mL ? | ?|recommendation | ? + +-------- --------+ + -----+| <0.1 ? | Bacterial ? ? ?| Strongly ? ? ?| ? | ?| infection very | discouraged ? | Overruling: ? | ?| unlikely ? ? ? | ? | ? Clinically unstable ? ? ? + +-------- --------+ + ? High risk for adverse ? ? | <0.25 ?| Bacterial ? ? ?| Discouraged ? | ? outcome ? | ?| infection ? ? ?| ? | ? SEE IMPORTANT NOTE ?| ?| unlikely ? ? ? | ? | ? + +-------- --------+ + -----+| >=0.25 ? ? ? | Bacterial ? ? ?| Encouraged ? ?| ? | ?| infection ? ? ?| ? | ? | ?| likely ? | ? | Consider treatment failure ?+ +------- ---------+ -+ if levels does not decrease | >0.5 ? | Bacterial ? ? ?| Strongly ? ? ?| appropriately ? | ?| infection very | encouraged ? ?| ? | ?| likely ? | ? | ? + +-------- --------+ + -----+ Discontinuation of antibiotics in high-acuity patients with suspected or confirmed sepsis in Adults >= 18 years of age. + +-------- --------+ + -----+|Procalcitonin |Interpretation ?|Antibiotic ? ? |Considerations ? |ng/mL ? | ?|recommendation | ? + +-------- --------+ + -----+| <0.25 ?| Bacterial ? ? ?| Strongly ? ? ?| ? | ?| infection very | discouraged ? | Overruling: ? | ?| unlikely ? ? ? | ? | ? Clinically unstable ? ? ? + +-------- --------+ + ? High risk for adverse ? ? | <0.5 or drop | Bacterial ? ? ?| Discouraged ? | ? outcome ? | >80% from ? ?| infection ? ? ?| ? | ? SEE IMPORTANT NOTE ?| highest PCT ?| unlikely ? ? ? | ? | ? | level ?| ?| ? | ? + +-------- --------+ + -----+| >=0.5 ?| Bacterial ? ? ?| Encouraged ? ?| ? | ?| infection ? ? ?| ? | ? | ?| likely ? | ? | Consider treatment failure ?+ +------- ---------+ -+ if levels does not decrease | >1.0 ? | Bacterial ? ? ?| Strongly ? ? ?| appropriately ? | ?| infection very | encouraged ? ?| ? | ?| likely ? | ? | ? + +-------- --------+ + -----+ Percentage of drop of Procalcitonin calculation for Discontinuation of antibiotics in high-acuity patients with suspected or confirmed sepsis in Adults >= 18 years of age. ? Procalcitonin highest{}-Procalcitonin current{}Delta Procalcitonin = x100% ? Procalcitonin current {} IMPORTANT NOTE: Procalcitonin may be elevated without bacterial infection by physiologic stress related to trauma, parker, chronic dialysis, metastatic cancer, surgery in the past seven days, malaria, some fungal infections, and some forms of vasculitis. The interpretation algorithm may not apply to patients with immunosuppression (equivalent of >10 mg of prednisone daily), HIV with CD4 cell count < 350 cells/mm3, active malignancy on systemic chemotherapy, solid organ transplant or hematopoietic stem cell transplantation, or hospital acquired pneumonia. Additionally, some clinical trials of procalcitonin have excluded patients with shock requiring vasopressor use, acute respiratory failure requiring mechanical ventilation, or those with known lung abscess/empyema. For further information please refer to:[email or web address] Lab Interpretation Normal (test code = 17491-2) [facility] [id number] 11:40:00 Test Item Value Reference Range Interpretation Comments TROPONIN I (test <0.012 See_Comment [Automated code = 1344860006) message] The system which generated this result transmitted reference range : <=0.034 ng/mL. The reference range was not used to interpr et this result as normal/abnormal . CHERYL (test code = Equal or Less than CHERYL) 0.034 ng/ml---Normal ?Note: Cardiac troponin begins to rise 3-4 hours after the onset of ischemia. Repeat in 4-6 hours if the sample was drawn within 3-4 hours of the onset of the symptom and found normal. Between 0.035 and 0.120 ng/mL--- Borderline. Questionable myocardial injury or necrosis ? ?Note: Serial measurement may be necessary to confirm or exclude the diagnosis of myocardial injury or necrosis; Clinical correlation (symptoms, EKGs, imaging studies, and others) required; Repeat in 4-6 hours if clinically indicated. ? Equal or Higher than 0.121 ng/mL---Abnormal. Myocardial Injury or Necrosis Likely ? Biotin has been reported to cause a negative bias, interpret results relative to patient's use of biotin. ? Lab Interpretation Normal (test code = 34861-4) [facility] METABOLIC PANEL (02215)2020-03-02 11:29:00 Test Item Value Reference Range Interpretation Comments NA (test code = 139 mmol/L 135-145 0916009847) K (test code = 4.2 mmol/L 3.5-5 6896794513) CL (test code = 106 mmol/L 98-108 7977768086) CO2 TOTAL (test code = 30 mmol/L 23-31 4775715791) AGAP (test code = 2-16 1007783736) BUN (test code = 13 mg/dL 7-23 2348623462) GLUCOSE (test code = 98 mg/dL 70-110 3064068647) CREATININE (test code = 0.63 mg/dL 0.5-1.04 0683272979) TOTAL BILI (test code = 0.8 mg/dL 0.1-1.1 1462073065) CALCIUM (test code = 9.2 mg/dL 8.6-10.6 3327406082) T PROTEIN (test code = 5.5 g/dL 6.3-8.2 L 5102356533) ALBUMIN (test code = 3.5 g/dL 3.5-5 0463975742) ALK PHOS (test code = 72 U/L 34-122 2095506816) ALTv (test code = 18 U/L 5-35 1742-6) AST(SGOT) (test code = 31 U/L 13-40 6263625209) eGFR Calculation mL/min/1.73m2 (Non-) (test code = 7044133956) eGFR Calculation mL/min/1.73m2 () (test code = 8167146985) CHERYL (test code = CHERYL) Association of Glomerular Filtration Rate (GFR) and Staging of Kidney Disease* + --+ --+ ------+| GFR (mL/min/1.73 m2) ?| With Kidney Damage ?| ?Without Kidney Damage+ --------+ --------+ +| ?>90 ?| ?Stage one ?| ? Normal ?+ ---+ ---+ -------+| ?60-89 ?| ?Stage two ?| ? Decreased GFR ? + --+ --+ ------+| ?30-59 ?| ?Stage three ?| ? Stage three ? + --+ --+ ------+| ?15-29 ?| ?Stage four ? | ? Stage four ?+ ---+ ---+ -------+| ?<15 (or dialysis) ? ?| ?Stage five ? | ? Stage five ?+ ---+ ---+ -------+ *Each stage assumes the associated GFR level has been in effect for at least three months. ?Stages 1 to 5, with or without kidney disease, indicate chronic kidney disease. Notes: Determination of stages one and two (with eGFR >59mL/min/1.73 m2) requires estimation of kidney damage for at least three months as defined by structural or functional abnormalities of the kidney, manifested by either:Pathological abnormalities or Markers of kidney damage (including abnormalities in the composition of the blood or urine or abnormalities in imaging tests). Lab Interpretation Abnormal (test code = 16970-8) [facility]-[id number] 11:20:00 Test Item Value Reference Interpretation Comments Range D-DIMER (test code = <0.27 See_Comment [Autom ated 8948675747) message] The system which generated this result transmitted reference range : <0.41 ?g/mL (FEU). The reference range was not used to interpret this result as normal/abnormal . CHERYL (test code = This test may be CHERYL) used in conjunction with a clinical pretest probability (PTP) assessment model to exclude venous thromboembolism (VTE) in patients suspected of deep venous thrombosis (DVT) and pulmonary embolism (PE) A D-Dimer value less than 0.50 ?g/ml (FEU) has a negative predicative value of 96 to 100% (95% CI)and 97 to 100% (95% CI) as an aid in the diagnosis of deep vein thrombosis (DVT) and pulmonary embolism when there is low or moderate pretest probability of PE or DVT. D-Dimer values are expressed in initial fibrinogen equivalent units (FEU)" The assay results should be used with other information, including the clinical context, in forming a diagnosis. Lab Interpretation Normal (test code = 10623-8) [facility] [id number] 22:00:00 Test Item Value Reference Range Interpretation Comments TROPONIN I (test <0.012 See_Comment [Automated code = 4043835119) message] The system which generated this result transmitted reference range : <=0.034 ng/mL. The reference range was not used to interpr et this result as normal/abnormal . CHERYL (test code = Equal or Less than CHERYL) 0.034 ng/ml---Normal ?Note: Cardiac troponin begins to rise 3-4 hours after the onset of ischemia. Repeat in 4-6 hours if the sample was drawn within 3-4 hours of the onset of the symptom and found normal. Between 0.035 and 0.120 ng/mL--- Borderline. Questionable myocardial injury or necrosis ? ?Note: Serial measurement may be necessary to confirm or exclude the diagnosis of myocardial injury or necrosis; Clinical correlation (symptoms, EKGs, imaging studies, and others) required; Repeat in 4-6 hours if clinically indicated. ? Equal or Higher than 0.121 ng/mL---Abnormal. Myocardial Injury or Necrosis Likely ? Biotin has been reported to cause a negative bias, interpret results relative to patient's use of biotin. ? Lab Interpretation Normal (test code = 83852-8) [facility] NorthwestUrinalysis2020-12-29 21:11:00 Test Item Value Reference Range Interpretation Comments APPEARANCE (test code = Clear Clear 4674882860) COLOR (test code = Yellow Yellow 4897420540) PH (test code = 4.8-8.0 5783660642) SP GRAVITY (test code = 1.003-1.030 2555721576) GLU U QUAL (test code = Normal Normal 1967759972) BLOOD (test code = Negative Negative 2141116910) KETONES (test code = Negative Negative 0716253987) PROTEIN (test code = Negative Negative 2887-8) UROBILIN (test code = Normal Normal 4006686944) BILIRUBIN (test code = Negative Negative 7651137494) NITRITE (test code = Negative Negative 8407290379) LEUK BENJI (test code = 25/uL Negative A 5351407333) RBC/HPF (test code = <1 See_Comment [Autom ated message] 5137220560) The system [employer] generated this result transmitted ref erence range: 0 - 3 HP F. The reference range was not used to int erpret this result as normal/abnormal . WBC/HPF (test code = <1 See_Comment [Autom ated message] 6231557281) The system [employer] generated this result transmitted ref erence range: 0 - 5 HP F. The reference range was not used to int erpret this result as normal/abnormal . BACTERIA (test code = Negative Negative 3820875282) Lab Interpretation (test Abnormal code = 83224-4) [facility] 1 [id number] 20:13:00Impression: No evidence of focal air space opacity, pleural effusion, or pneumothorax. Mildly enlarged cardiac silhouette. RL: [id number] Clinical indication: Shortness of breath. Ordering Physician: SAMINA MONTE Technique: A single AP view of the chest is obtained. ?There are no priorchest imaging studies available for comparison. Findings: The bones and soft tissues of the chest are unremarkable. ?Thecardiac silhouette is mildly enlarged. There is no evidence of a focalairspace opacity, pleural effusion or pneumothorax. ?Please note that chestradiography has limited sensitivity in evaluating for pulmonary masses. [facility], Radiant Results Inft User - 03/01/2020 2:14 PM CSTClinical indication: Shortness of breath.Ordering Physician: SAMINA Vyasique: A single AP view of the chest is obtained. There are no priorchest imaging studies available for comparison.Findings: The bones and soft tissues of the chest are unremarkable. Thecardiac silhouette is mildly enlarged. There is no evidence of a focalairspace opacity, pleural eff usion or pneumothorax. Please note that chestradiography has limited sensitivity in evaluating for pulmonary masses.IMPRESSIONImpression: No evidence of focal air space opacity, pleural effusion, or pneumothorax.Mildly enlarged cardiac silhouette.RL: 4507Electronically signed by Toño Murray MD at 1 05/02/2019 2:13 PM[facility] [id number] 19:22:00 Test Item Value Reference Range Interpretation Comments TROPONIN I (test <0.012 See_Comment [Automated code = 5148365637) message] The system which generated this result transmitted reference range : <=0.034 ng/mL. The reference range was not used to interpr et this result as normal/abnormal . CHERYL (test code = Equal or Less than CHERYL) 0.034 ng/ml---Normal ?Note: Cardiac troponin begins to rise 3-4 hours after the onset of ischemia. Repeat in 4-6 hours if the sample was drawn within 3-4 hours of the onset of the symptom and found normal. Between 0.035 and 0.120 ng/mL--- Borderline. Questionable myocardial injury or necrosis ? ?Note: Serial measurement may be necessary to confirm or exclude the diagnosis of myocardial injury or necrosis; Clinical correlation (symptoms, EKGs, imaging studies, and others) required; Repeat in 4-6 hours if clinically indicated. ? Equal or Higher than 0.121 ng/mL---Abnormal. Myocardial Injury or Necrosis Likely ? Biotin has been reported to cause a negative bias, interpret results relative to patient's use of biotin. ? Lab Interpretation Normal (test code = 93074-0) [id number] 19:20:00 Test Item Value Reference Range Interpretation Comments NT-proBNP (test code 460 pg/mL See_Comment H [Autom ated = 0977081059) message] The system which generated this result transmitted reference range : <=125. The reference range was not used to interpret this result as normal/abnormal . CHERYL (test code = CHERYL) Biotin has been reported to cause a negative bias, interpret results relative to patient's use of biotin. Lab Interpretation Abnormal (test code = 61790-7) [facility] NOW RAPID TESTING)2020-03-01 19:15:00 Test Item Value Reference Range Interpretation Comments SARS-CoV-2 Rapid ID NOW Not Detected Not Detected (test code = 55960-2) CHERYL (test code = CHERYL) ID NOW COVID-19 Assay is an isothermal nucleic acid amplification test intended for the qualitative detection of nucleic acid from SARS-CoV-2 viral RNA in nasopharyngeal (SYSTEMS INTEGRATOR) specimens. It is used under Emergency Use Authorization (EUA) by FDA. The limit of detection (LOD) of the assay is 125 Genome Equivalents/mL. A positive result is indicative of the presence of SARS-CoV-2 RNA. ?Clinical correlation with patient history and other diagnostic information is necessary to determine patient infection status. A negative (Not Detected) result does not preclude SARS-CoV-2 infection. In patients with clinical symptoms and other tests that are consistent with SARS-CoV-2 infection, negative results should be treated as presumptive negative and a new specimen should be tested with alternative PCR molecular test. Invalid: Please collect a new specimen for repeat patient testing if clinically indicated. Lab Interpretation Normal (test code = 52671-7) [facility] Metabolic Panel (NA, K, CL, CO2, GLUCOSE, BUN, CREATININE, CA)2020-03-01 19:10:00 Test Item Value Reference Range Interpretation Comments NA (test code = 139 mmol/L 135-145 4970727243) K (test code = 3.9 mmol/L 3.5-5 8355495118) CL (test code = 105 mmol/L 98-108 0439370081) CO2 TOTAL (test code = 27 mmol/L 23-31 0884207684) AGAP (test code = 2-16 9275801671) BUN (test code = 13 mg/dL 7-23 6124193266) GLUCOSE (test code = 92 mg/dL 70-110 3197565859) CREATININE (test code 0.67 mg/dL 0.5-1.04 = 2439017446) CALCIUM (test code = 9.4 mg/dL 8.6-10.6 6406312671) eGFR Calculation mL/min/1.73m2 (Non-) (test code = 2954427835) eGFR Calculation mL/min/1.73m2 () (test code = 5694296638) CHERYL (test code = CHERYL) Association of Glomerular Filtration Rate (GFR) and Staging of Kidney Disease* + -+ + ---+| GFR (mL/min/1.73 m2) ?| With Kidney Damage ?| ?Without Kidney Damage+ -------+ ------+ ---------+| ?>90 ?| ?Stage one ?| ? Normal ?+ --+ -+ ----+| ?60-89 ?| ?Stage two ?| ? Decreased GFR ? + -+ + ---+| ?30-59 ?| ?Stage three ?| ? Stage three ? + -+ + ---+| ?15-29 ?| ?Stage four ? | ? Stage four ?+ --+ -+ ----+| ?<15 (or dialysis) ? ?| ?Stage five ? | ? Stage five ?+ --+ -+ ----+ *Each stage assumes the associated GFR level has been in effect for at least three months. ?Stages 1 to 5, with or without kidney disease, indicate chronic kidney disease. Notes: Determination of stages one and two (with eGFR >59mL/min/1.73 m2) requires estimation of kidney damage for at least three months as defined by structural or functional abnormalities of the kidney, manifested by either:Pathological abnormalities or Markers of kidney damage (including abnormalities in the composition of the blood or urine or abnormalities in imaging tests). [facility] (ALB, T.PRO, BILI T, BU/BC, ALT, AST, ALK PHOS)2020-03-01 19:10:00 Test Item Value Reference Range Interpretation Comments TOTAL BILI (test code = 9874788729) 0.5 mg/dL 0.1-1.1 BILI UNCON (test code = 3707717163) 0.3 mg/dL 0.1-1.1 BILI CONJ (test code = 9586297966) 0.0 mg/dL 0-0.3 T PROTEIN (test code = 3374377779) 6.5 g/dL 6.3-8.2 ALBUMIN (test code = 0812038088) 4.1 g/dL 3.5-5 ALK PHOS (test code = 8899232259) 88 U/L 34-122 ALTv (test code = 1742-6) 21 U/L 5-35 AST(SGOT) (test code = 3694762756) 27 U/L 13-40 Lab Interpretation (test code = Normal 71097-2) [facility] (PT[facility] / [id number] 19:05:00 Test Item Value Reference Range Interpretation Comments PROTIME PATIENT (test See_Comment [Auto mated message] code = 5964-2) The system [employer] generated this result transmitted ref erence range: 12.0 - 1 4.7 Seconds. The re ference range was not u sed to interpret this result as normal/abnor mal. INR (test code = 6301-6) Nor mal INR <1.1; Warfarin Therap eutic range 2.0 to 3. 0 or 2.5 to 3.5, dep ending upon the indica tions. Lab Interpretation (test Normal code = 80529-7) [facility] with [id number] 19:00:00 Test Item Value Reference Range Interpretation Comments WBC (test code = See_Comment [Automated 6690-2) message] The sy stem which generated this result transmitted reference range : 4.30 - 11.10 10*3/?L. The reference range was not used to interpret this result as normal/abnormal . RBC (test code = See_Comment [Automated 789-8) message] The sy stem which generated this result transmitted reference range : 3.93 - 5.25 10*6/?L. The reference range was not used to interpret this result as normal/abnormal . HGB (test code = 13.2 g/dL 11.6-15 718-7) HCT (test code = 41.2 % 35.7-45.2 4544-3) MCV (test code = 89.4 fL 80.6-95.5 787-2) MCH (test code = 28.6 pg 25.9-32.8 785-6) MCHC (test code = 32.0 g/dL 31.6-35.1 786-4) RDW-SD (test code = 42.2 fL 39-49.9 70557-7) RDW-CV (test code = 12.9 % 12-15.5 788-0) PLT (test code = See_Comment [Automated 777-3) message] The sy stem which generated this result transmitted reference range : 166 - 358 10*3/ ?L. The reference r favian was not used to interpret this result as normal/abnormal . MPV (test code = 10.3 fL 9.5-12.9 28057-8) NRBC/100 WBC (test See_Comment [Automat ed code = 4810576135) message] The system which generated this result transmitted reference range : 0.0 - 10.0 /100 WBCs. The refer ence range was not u sed to interpret th is result as normal/abnormal . NRBC x10^3 (test code <0.01 See_Comment [Auto mated = 0787340612) message] The s ystem which generated this result transmitted reference range : 10*3/?L. The reference range was not used to interpret this result as normal/abnormal . GRAN MAT (NEUT) % 66.0 % (test code = 770-8) IMM GRAN % (test code 0.40 % = 2183657339) LYMPH % (test code = 27.0 % 736-9) MONO % (test code = 6.0 % 5905-5) EOS % (test code = 0.1 % 713-8) BASO % (test code = 0.5 % 706-2) GRAN MAT x10^3(ANC) 6.01 10*3/uL 1.88-7.09 (test code = 7456459850) IMM GRAN x10^3 (test 0.04 10*3/uL 0-0.06 code = 0156212016) LYMPH x10^3 (test code 2.46 10*3/uL 1.32-3.29 = 731-0) MONO x10^3 (test code 0.55 10*3/uL 0.33-0.92 = 742-7) EOS x10^3 (test code = <0.03 0.03-0.39 L 711-2) BASO x10^3 (test code 0.05 10*3/uL 0.01-0.07 = 704-7) Lab Interpretation Abnormal (test code = 32012-2) [facility]
[2021-04-25] MEDS ORDERED: NA CHLORIDE 0.9% 1,000 ML ONE (11:28)
[2021-04-25 11:37] LABS: Protime INR 1.51
[2021-04-25 11:59] LABS: Albumin 3.6 g/dL (3.4-5.0); Bilirubin Direct 0.1 mg/dL (0-0.2); Bilirubin Total 0.5 mg/dL (0.2-1.0); Magnesium 1.8 mg/dL (1.8-2.4); Potassium 3.8 mmol/L (3.5-5.1); Protein, Total 6.8 g/dL (6.4-8.2); Troponin High Sensitivity 8.9 pg/mL (<58.9)
--- NOTE | 2021-04-25 12:26 | RAD REPORT ---
EXAM DESCRIPTION: CT - Head Brain Wo Cont - 04/25/2021 12:19 pm CLINICAL HISTORY: DIZZINESS Headache, drowsiness COMPARISON: No comparisons TECHNIQUE: All CT scans are performed using dose optimization technique as appropriate and may inclu de automated exposure control or mA/KV adjustment according to patient size. FINDINGS: No intracranial hemorrhage, hydrocephalus or extra-axial fluid collection.Mild brain atrop hy.No areas of brain edema or evidence of midline shift. Mild mucosal thickening involving the left maxillary sinus. The paranasal sinuses and mastoids are ot herwise clear. The calvarium is intact. IMPRESSION: No acute intracranial abnormality.
--- NOTE | 2021-04-25 12:58 | RAD REPORT ---
EXAM DESCRIPTION: RAD - Chest Single View - 04/25/2021 12:32 pm CLINICAL HISTORY: CHEST PAIN Chest pain. COMPARISON: Chest Single View dated 12/04/2020; Chest Single View dated 01/14/2020; CHEST PA AND LAT 2 VIEW dated 11/12/2014; CHEST PA AND LAT 2 VIEW dated 04/13/2014 FINDINGS: Portable technique limits examination quality. The lungs are grossly clear. The heart is upper limit of normal in size. No displaced fractures. IMPRESSION: No acute intrathoracic process suspected.
--- NOTE | 2021-04-25 15:02 | ER ---
Nurse's Notes [facility] Name: Tiara Stokes Age: 65 yrs Sex: Female : 1955 Arrival Date: 04/25/2021 Time: : Bed 5 Private MD: Diagnosis: Vertigo of central origin Presentation: 04/25 10:50 Chief complaint: Patient states: she has been having difficulty ambulating for approx 3 ap3 days. Patient reports associated symptoms of being dizzy and feeling faint upon standing as well. Patient states she had a cardiac ablation procedure 2 weeks ago. Coronavirus screen: At this time, the client does not indicate any symptoms associated with coronavirus-19. Ebola Screen: No symptoms or risks identified at this time. Initial Sepsis Screen: Does the patient meet any 2 criteria? No. Patient's initial sepsis screen is negative. Does the patient have a suspected source of infection? No. Patient's initial sepsis screen is negative. Risk Assessment: Do you want to hurt yourself or someone else? Patient reports no desire to harm self or others. Onset of symptoms was April 22, 2021. 10:50 Method Of Arrival: Wheelchair ap3 10:50 Acuity: MELANIE 3 ap3 Triage Assessment: 10:58 General: Appears in no apparent distress. Behavior is calm, cooperative, appropriate ap3 for age. Pain: Complains of pain in right leg and left leg Quality of pain is described as crampy. 10:59 Neuro: Level of Consciousness is awake, alert, obeys commands, Oriented to person, ap3 place, time, situation, Appropriate for age Speech is normal. Neuro: Reports dizziness, weakness. Cardiovascular: Patient's skin is warm and dry. Respiratory: Airway is patent Respiratory effort is even, unlabored. Historical: - Allergies: 10:52 Codeine; ap3 - Home Meds: 10:52 trazodone 100 mg Oral tab nightly [Active]; lithium carbonate 150 mg Oral cap [Active]; ap3 aspirin 81 mg Oral tab [Active]; duloxetine 60 mg oral CDRS 1 cap twice daily [Active]; omeprazole 20 mg Oral TbLD [Active]; triamterene-hydrochlorothiazid 37.5-25 mg Oral tab 1 tab once daily [Active]; levothyroxine oral [Active]; lamotrigine 100 mg oral tab 1.5 tabs 0.5 tab in the morning, one tab at night [Active]; metoprolol tartrate 25 mg Oral tab 1 tab 2 times per day [Active]; Eliquis 2.5 mg oral tab [Active]; atorvastatin 20 mg oral tab [Active]; sucralfate 1 gram Oral tab [Active]; pantoprazole 40 mg oral TbEC [Active]; - PMHx: 10:52 Atrial fibrillation; breast cancer; Myocardial infarction; ap3 - PSHx: 10:52 abdirizak mastectomy; L knee replacement; ap3 - Immunization history:: Client reports receiving the 2nd dose of the Covid vaccine. - Social history:: Smoking status: Patient denies any tobacco usage or history of. Screenin:58 Abuse screen: Denies threats or abuse. Nutritional screening: No deficits noted. ap3 Tuberculosis screening: No symptoms or risk factors identified. 11:15 Fall Risk No fall in past 12 months (0 pts). No secondary diagnosis (0 pts). IV access ph (20 points). Ambulatory Aid- None/Bed Rest/Nurse Assist (0 pts). Gait- Weak (10 pts.). Mental Status- Oriented to own ability (0 pts). Total S[place] Fall Scale indicates High Risk Score (45 or more points). Fall prevention measures have been instituted. Side Rails Up X 2 Placed Close to Nursing Station Frequent Obs/Assessments Occuring Family Present and informed to notify staff if the need to leave the bedside As available patient and family educated on Fall Prevention Program and Strategies. Assessment: 11:13 General: Appears in no apparent distress. comfortable, slender, Behavior is calm, ph cooperative, appropriate for age, Denies fever, feeling ill. Pain: Complains of pain in anterior aspect of right upper chest and left leg and right leg Pain began 2-3 days ago. Neuro: Level of Consciousness is awake, alert, obeys commands, Oriented to person, place, time, situation, Reports dizziness, weakness Denies blurred vision difficulty swallowing, numbness headache. Cardiovascular: Reports chest pain, lightheadedness, nausea, vomiting, Denies shortness of breath, syncope, Capillary refill < 3 seconds in bilateral fingers Patient's skin is warm and dry. Cardiovascular: Edema is absent. Respiratory: Airway is patent Respiratory effort is even, unlabored. GI: Reports nausea, Patient currently denies abdominal pain. Derm: Skin is intact, Skin is pink, warm \\T\\ dry. Musculoskeletal: Circulation, motion, and sensation intact. Range of motion: intact in all extremities. 12:00 Reassessment: Patient appears in no apparent distress at this time. Patient and/or ph family updated on plan of care and expected duration. Pain level reassessed. Patient is alert, oriented x 3, equal unlabored respirations, skin warm/dry/pink. 13:00 Reassessment: Patient appears in no apparent distress at this time. Patient and/or ph family updated on plan of care and expected duration. Pain level reassessed. Patient is alert, oriented x 3, equal unlabored respirations, skin warm/dry/pink. 14:30 Reassessment: Patient appears in no apparent distress at this time. Patient and/or ph family updated on plan of care and expected duration. Pain level reassessed. Patient is alert, oriented x 3, equal unlabored respirations, skin warm/dry/pink. 15:30 Reassessment: Patient appears in no apparent distress at this time. Patient and/or ph family updated on plan of care and expected duration. Pain level reassessed. Patient is alert, oriented x 3, equal unlabored respirations, skin warm/dry/pink. 16:30 Reassessment: Patient appears in no apparent distress at this time. Patient and/or ph family updated on plan of care and expected duration. Pain level reassessed. Patient is alert, oriented x 3, equal unlabored respirations, skin warm/dry/pink. 17:30 Reassessment: Patient appears in no apparent distress at this time. Patient and/or ph family updated on plan of care and expected duration. Pain level reassessed. Patient is alert, oriented x 3, equal unlabored respirations, skin warm/dry/pink. Awaiting room assignment. Vital Signs: 10:50 BP 115 / 70; Pulse 54; Resp 17; Temp 97.7; Pulse Ox 100% ; Weight 66.22 kg; Height 5 ap3 ft. 4 in. (162.56 cm); 11:15 BP 99 / 54; Pulse 55; Resp 18; Pulse Ox 100% on R/A; ph 12:30 BP 100 / 45; Pulse 52; Resp 16; Pulse Ox 98% on R/A; ph 13:30 BP 102 / 49; Pulse 52; Resp 18; Pulse Ox 98% on R/A; ph 14:30 BP 106 / 65; Pulse 53; Resp 18; Pulse Ox 99% on R/A; ph 15:30 BP 108 / 52; Pulse 50; Resp 18; Pulse Ox 97% on R/A; ph 17:00 BP 104 / 50; Pulse 51; Resp 18; Pulse Ox 99% on R/A; ph 10:50 Body Mass Index 25.06 (66.22 kg, 162.56 cm) ap3 Vitals: 11:15 Cardiac Rhythm Assessment Sinus jermaine. ph ED Course: 10:22 Patient arrived in ED. ds1 10:52 Triage completed. ap3 10:59 Arm band placed on left wrist. ap3 11:01 Karissa Solis MD is Attending Physician. ma2 11:03 Ifeoma Bauer RN is Primary Nurse. ph 11:04 Patient has correct armband on for positive identification. Placed in gown. Bed in low ph position. Call light in reach. bottle washing machine operator on. Pulse ox on. NIBP on. 11:21 Initial lab(s) drawn, sent to lab. EKG done. Inserted saline lock: 20 gauge in right ww forearm, using aseptic technique. Blood collected. 11:25 Basic Metabolic Panel Sent. ww 11:25 CBC with Diff Sent. ww 11:25 LFT's Sent. ww 12:19 CT Head Brain wo Cont In Process Unspecified. EDMS 12:33 XRAY Chest (1 view) In Process Unspecified. EDMS 13:44 SARS-COV-2 RT PCR (Document "Date of Onset" if Symptomatic) Sent. ww 15:01 Theo Harrison is Hospitalizing Provider. ma2 Administered Medications: 11:30 Drug: NS 0.9% 1000 ml Route: IV; Rate: 1 bolus; Site: right antecubital; ph 13:30 Follow up: Response: No adverse reaction; IV Status: Completed infusion; IV Intake: ph 1000ml Intake: 13:30 IV: 1000ml; Total: 1000ml. ph Outcome: 15:02 Decision to Hospitalize by Provider. ma2 20:17 Patient left the ED. mw2 Signatures: Dispatcher [employer] EDMN Judy Cheung ds1 Ifeoma Bauer, KIARA RN Karsisa Solis MD MD ma2 Nicolasa Edwards, RN RN ap3 Ed Meneses mw2 Joceline Funk, RN RN ww
--- NOTE | 2021-04-25 15:03 | EDPHYS ---
Physician Documentation [facility] Name: Tiara Stokes Age: 65 yrs Sex: Female : 1955 Arrival Date: 04/25/2021 Time: 10: Bed 5 Private MD: ED Physician Karissa Solis HPI: 04/25 12:54 This 65 yrs old Unknown Female presents to ER via Wheelchair with complaints of Leg ma2 Pain, Chest Pain, Dizziness. 12:54 Onset: The symptoms/episode began/occurred gradually, 2 day(s) ago. 65-year-old female ma2 with history of A. fib, has been having dizziness that she described as imbalance for the last 2 days, symptoms been constant patient is unable to walk, she also describes positional lightheadedness,. Historical: - Allergies: 10:52 Codeine; ap3 - Home Meds: 10:52 trazodone 100 mg Oral tab nightly [Active]; lithium carbonate 150 mg Oral cap [Active]; ap3 aspirin 81 mg Oral tab [Active]; duloxetine 60 mg oral CDRS 1 cap twice daily [Active]; omeprazole 20 mg Oral TbLD [Active]; triamterene-hydrochlorothiazid 37.5-25 mg Oral tab 1 tab once daily [Active]; levothyroxine oral [Active]; lamotrigine 100 mg oral tab 1.5 tabs 0.5 tab in the morning, one tab at night [Active]; metoprolol tartrate 25 mg Oral tab 1 tab 2 times per day [Active]; Eliquis 2.5 mg oral tab [Active]; atorvastatin 20 mg oral tab [Active]; sucralfate 1 gram Oral tab [Active]; pantoprazole 40 mg oral TbEC [Active]; - PMHx: 10:52 Atrial fibrillation; breast cancer; Myocardial infarction; ap3 - PSHx: 10:52 abdirizak mastectomy; L knee replacement; ap3 - Immunization history:: Client reports receiving the 2nd dose of the Covid vaccine. - Social history:: Smoking status: Patient denies any tobacco usage or history of. ROS: 12:54 Constitutional: Negative for fever, chills, and weight loss. ma2 12:54 All other systems are negative. Exam: 12:54 Constitutional: This is a well developed, well nourished patient who is awake, alert, ma2 and in no acute distress. ENT: Nares patent. No nasal discharge, no septal abnormalities noted. Tympanic membranes are normal and external auditory canals are clear. Oropharynx with no redness, swelling, or masses, exudates, or evidence of obstruction, uvula midline. Mucous membranes moist. Neck: Trachea midline, no thyromegaly or masses palpated, and no cervical lymphadenopathy. Supple, full range of motion without nuchal rigidity, or vertebral point tenderness. No Meningismus. Chest/axilla: Normal chest wall appearance and motion. Nontender with no deformity. No lesions are appreciated. Cardiovascular: Regular rate and rhythm with a normal S1 and S2. No gallops, murmurs, or rubs. Normal PMI, no JVD. No pulse deficits. Respiratory: Lungs have equal breath sounds bilaterally, clear to auscultation and percussion. No rales, rhonchi or wheezes noted. No increased work of breathing, no retractions or nasal flaring. Abdomen/GI: Soft, non-tender, with normal bowel sounds. No distension or tympany. No guarding or rebound. No evidence of tenderness throughout. Back: No spinal tenderness. No costovertebral tenderness. Full range of motion. Skin: Warm, dry with normal turgor. Normal color with no rashes, no lesions, and no evidence of cellulitis. MS/ Extremity: Pulses equal, no cyanosis. Neurovascular intact. Full, normal range of motion. Neuro: Awake and alert, GCS 15, oriented to person, place, time, and situation. Cranial nerves II-XII grossly intact. Motor strength 5/5 in all extremities. Sensory grossly intact. Cerebellar exam normal. Normal gait. Vital Signs: 10:50 BP 115 / 70; Pulse 54; Resp 17; Temp 97.7; Pulse Ox 100% ; Weight 66.22 kg; Height 5 ap3 ft. 4 in. (162.56 cm); 11:15 BP 99 / 54; Pulse 55; Resp 18; Pulse Ox 100% on R/A; ph 12:30 BP 100 / 45; Pulse 52; Resp 16; Pulse Ox 98% on R/A; ph 13:30 BP 102 / 49; Pulse 52; Resp 18; Pulse Ox 98% on R/A; ph 14:30 BP 106 / 65; Pulse 53; Resp 18; Pulse Ox 99% on R/A; ph 15:30 BP 108 / 52; Pulse 50; Resp 18; Pulse Ox 97% on R/A; ph 17:00 BP 104 / 50; Pulse 51; Resp 18; Pulse Ox 99% on R/A; ph 10:50 Body Mass Index 25.06 (66.22 kg, 162.56 cm) ap3 MDM: 11:20 Patient medically screened. ma2 12:54 Differential diagnosis: Unable to walk due to lightheadedness, dizziness. ma2 14:14 Data reviewed: vital signs, nurses notes. Counseling: I had a detailed discussion with ma2 the patient and/or guardian regarding: the historical points, exam findings, and any diagnostic results supporting the discharge/admit diagnosis, the presence of at least one elevated blood pressure reading (>120/80) during this emergency department visit, the need for outpatient follow up. Response to treatment: the patient's symptoms have markedly improved after treatment. 15:00 ED course: Patient has unstable gait, she stated that this has been going on for 2 ma2 days, constant discussed with neurologist Dr. Hernandez, he will see the patient. Also discussed with Dr. harrison. 04/25 11:21 Order name: Basic Metabolic Panel [facility] 04/25 11:21 Order name: CBC with Diff nd2 04/25 11:21 Order name: LFT's [facility] 04/25 11:21 Order name: Magnesium; Complete Time: 12:43 nd2 04/25 11:21 Order name: NT PRO-BNP; Complete Time: 12:43 nd2 04/25 11:21 Order name: PT-INR; Complete Time: 12:43 nd2 04/25 11:21 Order name: Troponin HS; Complete Time: 12:43 nd2 04/25 11:21 Order name: XRAY Chest (1 view); Complete Time: 13:20 ma2 04/25 11:21 Order name: Basic Metabolic Panel; Complete Time: 12:43 EDMS 04/25 11:21 Order name: CBC with Automated Diff EDMS 04/25 11:21 Order name: Liver (Hepatic) Function; Complete Time: 12:43 EDMS 04/25 11:56 Order name: CT Head Brain wo Cont; Complete Time: 12:43 ma2 04/25 12:48 Order name: SARS-COV-2 RT PCR (Document "Date of Onset" if Symptomatic) [facility] 04/25 12:48 Order name: SARS-COV-2 RT PCR [facility] 04/25 11:21 Order name: EKG; Complete Time: 11: [facility] 04/25 11:21 Order name: Cardiac monitoring; Complete Time: 11: [facility] 04/25 11:21 Order name: EKG - Nurse/Tech; Complete Time: [facility] 04/25 11:21 Order name: IV Saline Lock; Complete Time: [facility] 04/25 11:21 Order name: Labs collected and sent; Complete Time: [facility] 04/25 11:21 Order name: O2 Per Protocol; Complete Time: [facility] 04/25 11:21 Order name: O2 Sat Monitoring; Complete Time: [facility] 04/25 14:16 Order name: MRI - Brain W/Wo Cont [facility] 04/25 17:33 Order name: Diet Heart Healthy; Complete Time: 17:33 04/25 20:11 Order name: MRI EDNC Administered Medications: 11:30 Drug: NS 0.9% 1000 ml Route: IV; Rate: 1 bolus; Site: right antecubital; ph 13:30 Follow up: Response: No adverse reaction; IV Status: Completed infusion; IV Intake: ph 1000ml Disposition Summary: 04/25/21 15:02 Hospitalization Ordered Hospitalization Status: Inpatient Admission [facility] Provider: Theo Harrison [facility] Location: Telemetry/MedSurg (Inpatient) [facility] Condition: Stable ma Problem: new ma2 Symptoms: are unchanged [facility] Bed/Room Type: Standard [facility] Room Assignment: [facility](04/25/21 19:33) Diagnosis - Vertigo of central origin ma Forms: - Medication Reconciliation Form nd2 - SBAR form [facility] Signatures: Dispatcher [employer] EDJo-Ann Townsend Shelby, RN RN ss Ifeoma Bauer RN RN Karissa Solis MD MD nd2 Nicolasa Edwards RN RN ap3 Corrections: (The following items were deleted from the chart) 18:39 15:02 ma2 bd 19:33 18:39 220 bd
[2021-04-25 15:47] LABS: Absolute Lymphocytes (CBC) 1.9 K/uL (0.7-4.9); Hematocrit 37.4 % (36.0-45.0); Lymphocytes % 23.3 % (15.3-44.8); MPV 9.8 fL (7.6-11.3); RBC Red Blood Cell Count 4.35 M/uL (3.86-4.86)
--- NOTE | 2021-04-25 16:21 | P.HP ---
Certification for Inpatient Patient admitted to: Observation With expected LOS: <2 Midnights Practitioner: I am a practitioner with admitting privileges, knowledge of patient current condition, hospital course, and medical plan of care. Services: Services provided to patient in accordance with Admission requirements found in Title 42 Section 412.3 of the Code of Federal Regulations Patient History Date of Service: 04/25/21 Reason for admission: Dizziness History of Present Illness: 65-year-old woman with a history of chronic atrial fibrillation status post recent cardiac ablation presented to the emergency department with a complaint of dizziness worse with sitting and standing from the lying position. Symptoms associated with lightheadedness, no nausea or vomiting. Patient denied any chest pain or palpitation. Blood work in the ED is unremarkable. Patient noted to have soft blood pressure with systolic in the low 100s. She may be experiencing orthostatic hypotension. Heart rate also ranged from 50s to 60s. EKG shows rate controlled atrial fibrillation. Patient is placed on observation for further evaluation. Allergies codeine Adverse Reaction (Verified 12/05/20 01:52) hyperactive Home Medications: Duloxetine HCl 60 mg PO BID 12/05/20 Ibuprofen [Motrin*] 200 mg PO TIDP PRN 12/05/20 Lamotrigine [Lamictal] 100 mg PO DAILY 12/05/20 Levothyroxine Sodium [Euthyrox] 150 mcg PO DAILY 12/05/20 [place] Carbonate [Lithotabs *] 150 mg PO BEDTIME 12/05/20 Omeprazole [Prilosec] 40 mg PO DAILY 12/05/20 Trazodone HCl [Desyrel] 100 mg PO BEDTIME 12/05/20 Triamterene/Hydrochlorothiazid [Triamterene-Hctz 37.5-25 mg Cp] 1 cap PO DAILY 12/05/20 Apixaban [Eliquis] 5 mg PO BID #60 tablet 12/06/20 Aspirin [Aspirin EC] 81 mg PO DAILY #30 tablet. 12/06/20 Atorvastatin Calcium [Lipitor] 40 mg PO BEDTIME #30 tab 12/06/20 Metoprolol Tartrate [Lopressor*] 12.5 mg PO BID #30 tab 12/06/20 - Past Medical/Surgical History Diabetic: No -: Bipolar -: Breast CA -: Osteoarthritis -: Neuropathy -: Depression -: Hypothyroidism -: Left cataract removal -: Bilateral mastectomy & reconstruction -: Hysterectomy -: Left rotator cuff sx -: Left knee replacement -: Left hip replacement - Family History Mother -: Hypertension Father -: Hypertension - Social History Alcohol use: No CD- Drugs: No Caffeine use: Yes Review of Systems Other: Except as documented, all other systems reviewed and negative. Physical Examination - Physical Exam General: Alert, In no apparent distress, Oriented x3 HEENT: PERRLA, Mucous membr. moist/pink, Sclerae nonicteric Neck: Supple, JVD not distended Respiratory: Clear to auscultation bilaterally, Normal air movement Cardiovascular: No edema, Normal S1 S2, No murmurs, Irregular heart rate/rhythm Capillary refill: <2 Seconds Gastrointestinal: Normal bowel sounds, Soft and benign, Non-distended, No tenderness Musculoskeletal: No swelling, No tenderness Integumentary: No rashes Neurological: Normal speech, Normal strength at 5/5 x4 extr, Cranial nerves 3-12 intact Lymphatics: No axilla or inguinal lymphadenopathy - Studies Laboratory Data (last 24 hrs) 04/25/21 11:23: PT 17.4 H, INR 1.51 04/25/21 11:23: WBC 8.40, Hgb 12.2, Hct 37.4, Plt Count 193 04/25/21 11:23: Sodium 139, Potassium 3.8, BUN 20 H, Creatinine 1.04, Glucose 114 H, Magnesium 1.8, Total Bilirubin 0.5, AST 16, ALT 24, Alkaline Phosphatase 106 Assessment and Plan - Problems (Diagnosis) (1) Dizziness Current Visit: Yes Status: Acute (2) Atrial fibrillation with slow ventricular response Current Visit: No Status: Acute (3) GERD (gastroesophageal reflux disease) Current Visit: No Status: Acute (4) Hypothyroidism Current Visit: No Status: Acute - Plan Patient may be experiencing orthostatic hypotension. Placed under observation in telemetry. Hydrate with IV normal saline. Check orthostatic vitals. Obtain echocardiogram and carotid Doppler. No limb weakness or visual disturbance. Acute CVA much less likely. Hold metoprolol. Patient states she is being considered for pacemaker placement. - Advance Directives Does patient have a Living Will: No Does patient have a Durable POA for Healthcare: No
[2021-04-25] MEDS ORDERED: INFLUENZA VACCINE (for 6+ mo) 0.5 ML DOSE IMVAC ONE (20:00)
[2021-04-25] MEDS ORDERED: PNEUMOCOCCAL VACCINE 0.5 ML IMVAC ONE (20:00)
--- NOTE | 2021-04-25 20:10 | RAD REPORT ---
EXAM DESCRIPTION: MRI - Brain W/Wo Cont - 04/25/2021 7:24 pm CLINICAL HISTORY: DIZZINESS COMPARISON: Brain W/Wo Cont dated 12/18/2019; Head Brain Wo Cont dated 04/25/2021 TECHNIQUE: Sagittal and axial T1-weighted images were obtained. Axial PD/heavily T2-weighted and T2- FLAIR images were obtained along with axial DWI/ADC mapping sequences. Coronal heavily T2 weighted s equence obtained. Axial and coronal post-contrast T1-weighted images were also obtained. A 15 ml Mul tihance contrast following utilized. FINDINGS: No intracranial hemorrhage, mass or acute infarction. There is no edema or shift of midli ne structures. No extra-axial fluid collections. Greene-matter/white matter junction is preserved. Sig nal voids are seen as a normal finding in the major intracranial vessels. Atrophy changes are mild si milar to comparison. Ventricles are in proportion. No measurable chronic ischemic change seen. Post-contrast images show normal enhancement. No dural thickening. Mastoid air cells and paranasal sinuses are clear. IMPRESSION: Negative contrast enhanced MRI of the Brain for acute finding. No significant change from December 2019 MRI imaging.
[2021-04-25] MEDS ORDERED: ONDANSETRON 4 MG/2 ML VIAL IV PRN (20:34)
[2021-04-25] MEDS ORDERED: ACETAMINOPHEN 500 MG TAB PO PRN (20:34)
[2021-04-25 20:44] VITALS: BMI 25.0
[2021-04-25] MEDS: NA CHLORIDE 0.9% 1,000 ML IV SCH (21:32)
[2021-04-25] MEDS ORDERED: TRAZODONE 50 MG TABLET PO PRN (23:51)
[2021-04-26 01:46] VITALS: O2SAT 96
[2021-04-26 04:27] LABS: Absolute Lymphocytes (CBC) 2.9 K/uL (0.7-4.9); Hematocrit 30.9 % (36.0-45.0); Lymphocytes % 35.2 % (15.3-44.8); MPV 8.4 fL (7.6-11.3)
[2021-04-26 05:04] LABS: BUN Blood Urea Nitrogen 15 mg/dL (7-18); Bicarbonate 26 mmol/L (21-32); Glucose Level 100 mg/dL (74-106); HDL Cholesterol 38 mg/dL (40-60); LDL Cholesterol, Calculated 54 (<130); Magnesium 1.8 mg/dL (1.8-2.4); Phosphorus 3.1 mg/dL (2.5-4.9); Potassium 3.6 mmol/L (3.5-5.1); Sodium Level 143 mmol/L (136-145)
[2021-04-26 05:05] LABS: Thyroid Stimulating Hormone < 0.005 uIU/mL (0.360-3.740)
[2021-04-26] MEDS ORDERED: ENOXAPARIN 40 MG/0.4 ML SQ SCH (09:00)
[2021-04-26] MEDS ORDERED: MAGNESIUM SULFATE 1 gm IVPB 1 GM/100 ML BAG IV ONE (09:00)
[2021-04-26] MEDS ORDERED: ASPIRIN EC 81 MG TAB PO SCH (09:00)
[2021-04-26] MEDS ORDERED: POTASSIUM CL SA 10 MEQ TAB PO ONE (09:00)
[2021-04-26 12:36] VITALS: TEMP 97.6
[2021-04-26] MEDS: NA CHLORIDE 0.9% 1,000 ML IV SCH (14:11)
--- NOTE | 2021-04-26 14:41 | P.DS ---
Admission Date: 04/25/21 Discharge Date: 04/26/21 Disposition: DC HOME/HOME HEALTH CARE Discharge Condition: FAIR Reason for Admission: Dizziness - Problems (1) Dizziness Current Visit: Yes Status: Acute (2) Atrial fibrillation with slow ventricular response Current Visit: No Status: Acute (3) GERD (gastroesophageal reflux disease) Current Visit: No Status: Acute (4) Hypothyroidism Current Visit: No Status: Acute Brief History of Present Illness: 65-year-old woman with a history of chronic atrial fibrillation status post recent cardiac ablation presented to the emergency department with a complaint of dizziness worse with sitting and standing from the lying position. Symptoms associated with lightheadedness, no nausea or vomiting. Patient denied any chest pain or palpitation. Blood work in the ED is unremarkable. Patient noted to have soft blood pressure with systolic in the low 100s. She may be experiencing orthostatic hypotension. Heart rate also ranged from 50s to 60s. EKG shows rate controlled atrial fibrillation. Patient is placed on observation for further evaluation. Hospital Course: Patient observation on the medical floor. MRI of the brain performed was negative for acute stroke. Patient symptoms resolved but noted to have tremors. Notably her TSH measured is very low indicating hyperthyroid state. Patient dizziness and vertigo likely related to hyperthyroidism. She stated her Synthroid dose was recently decreased. Patient also report multiple falls at home. She was evaluated by PT and patient noted to do well with ambulation using a front wheeled rolling walker. Patient deemed stable for discharge. She is advised to stop taking her Synthroid and informed her she needs to be evaluated by an lasting room supervisor. Patient stated she will discuss with her PCP for referral to an lasting room supervisor. Vital Signs/Physical Exam: Temp Pulse Resp BP Pulse Ox 97.6 F 62 16 117/62 99 04/26/21 12:00 04/26/21 12:00 04/26/21 12:00 04/26/21 12:00 04/26/21 12:00 General: Alert, In no apparent distress, Oriented x3 HEENT: Mucous membr. moist/pink, Sclerae nonicteric Neck: Supple, 2+ carotid pulse no bruit, JVD not distended Respiratory: Clear to auscultation bilaterally, Normal air movement Cardiovascular: No edema, Normal S1 S2, No murmurs, Irregular heart rate/rhythm Gastrointestinal: Soft and benign, Non-distended, No tenderness Musculoskeletal: No swelling, No tenderness Integumentary: No rashes, No erythema Neurological: Normal strength at 5/5 x4 extr, Other (Hand tremors) Laboratory Data at Discharge: WBC 8.20 K/uL (4.3-10.9) 04/26/21 04:15 Hgb 10.5 g/dL (12.0-15.0) L 04/26/21 04:15 Hct 30.9 % (36.0-45.0) L D 04/26/21 04:15 Plt Count 156 K/uL (152-406) 04/26/21 04:15 PT 17.4 SECONDS (9.5-12.5) H 04/25/21 11:23 INR 1.51 04/25/21 11:23 Sodium 143 mmol/L (136-145) 04/26/21 04:11 Potassium 3.6 mmol/L (3.5-5.1) 04/26/21 04:11 BUN 15 mg/dL (7-18) 04/26/21 04:11 Creatinine 0.71 mg/dL (0.55-1.3) 04/26/21 04:11 Glucose 100 mg/dL (74-106) 04/26/21 04:11 Phosphorus 3.1 mg/dL (2.5-4.9) 04/26/21 04:11 Magnesium 1.8 mg/dL (1.8-2.4) 04/26/21 04:11 Total Bilirubin 0.5 mg/dL (0.2-1.0) 04/25/21 11:23 AST 16 U/L (15-37) 04/25/21 11:23 ALT 24 U/L (12-78) 04/25/21 11:23 Alkaline Phosphatase 106 U/L (45-117) 04/25/21 11:23 Triglycerides 90 mg/dL (<150) 04/26/21 04:11 Cholesterol 110 mg/dL (<200) 04/26/21 04:11 HDL Cholesterol 38 mg/dL (40-60) L 04/26/21 04:11 Cholesterol/HDL Ratio 2.89 04/26/21 04:11 Home Medications: Lamotrigine [Lamictal] 50 mg PO DAILY 12/05/20 [place] Carbonate [Lithotabs *] 150 mg PO BEDTIME 12/05/20 Omeprazole [Prilosec] 40 mg PO DAILY 12/05/20 Trazodone HCl [Desyrel] 100 mg PO BEDTIME 12/05/20 Triamterene/Hydrochlorothiazid [Triamterene-Hctz 37.5-25 mg Cp] 1 cap PO DAILY 12/05/20 Atorvastatin Calcium 20 mg PO BEDTIME 04/25/21 Duloxetine HCl [Drizalma Sprinkle] 60 mg PO BID 04/25/21 Metoprolol Tartrate [Lopressor*] 25 mg PO BID 04/25/21 Apixaban [Eliquis] 5 mg PO BID 04/26/21 Aspirin [Aspirin EC] 81 mg PO BEDTIME 04/26/21 Lamotrigine [Lamictal] 100 mg PO BEDTIME 04/26/21 Multivitamin 1 each PO DAILY 04/26/21 Pantoprazole [Protonix Tab*] 40 mg PO DAILY 04/26/21 Sucralfate [Carafate] 1 gm PO BID 04/26/21 Diet: AHA Activity: Fall precautions Followup: Matteo Callaway MD [Primary Care Provider] - 1 Week
[2021-04-26 17:26] VITALS: BP 119/55
--- NOTE | 2021-04-27 07:37 | EKG ---
Test Date: 2021-04-25 Test Time: 11:10:36 [employer] Hand: NACHO MEASUREMENT RESULTS: Intervals: Rate: 54 DE: 154 QRSD: 70 QT: 460 QTc: 436 [place]: P: 56 DE: 154 QRS: 2 T: 10 INTERPRETIVE STATEMENTS: Sinus bradycardia Nonspecific ST and T wave abnormality Abnormal ECG Electronically Signed On 04-27-21 07:36:01 [employer] by Singh Fortune
--- NOTE | 2021-04-27 07:37 | EKG ---
Test Date: 2021-04-25 Test Time: 11:09:41 Personnel Analyst: NACHO MEASUREMENT RESULTS: Intervals: Rate: 53 OR: 126 QRSD: 96 QT: 450 QTc: 422 [place]: P: 48 OR: 126 QRS: 5 T: 11 INTERPRETIVE STATEMENTS: Sinus bradycardia Septal infarct, age undetermined Abnormal ECG Compared to ECG 12/05/2020 02:55:40 Myocardial infarct finding now present Atrial fibrillation no longer present ST (T wave) deviation no longer present Possible ischemia no longer present Electronically Signed On 04-27-21 07:36:02 [employer]ATT[employer] BUILDER by Singh Fortune
--- NOTE | 2021-04-27 08:11 | ECHO ---
HEIGHT: 5 ft 4 in WEIGHT: 146 lb 0 oz DATE OF STUDY: 04/26/[address]: pop barriga 2-DIMENSIONAL: YES M.MODE: YES DOPPLER: YES COLOR FLOW: YES TDS: YES PORTABLE: NO DEFINITY: NO BUBBLE STUDY: NO DIAGNOSIS: CARDIAC HISTORY: CATHERIZATION: SURGERY: PROSTHETIC VALVE: PACEMAKER: MEASUREMENTS (cm) DIASTOLIC (NORMALS) SYSTOLIC (NORMALS) IVSd 0.9 (0.6-1.2) LA Diam (1.9-4.0) LVEF 64% LVIDd 4.4 (3.5-5.7) LVIDs 2.9 (2.0-3.5) %FS 35% LVPWd 1.0 (0.6-1.2) Ao Diam 2.8 (2.0-3.7) 2 DIMENSIONAL ASSESSMENT: RIGHT ATRIUM: NORMAL LEFT ATRIUM: NORMAL RIGHT VENTRICLE: NORMAL LEFT VENTRICLE: NORMAL TRICUSPID VALVE: NORMAL MITRAL VALVE: NORMAL PULMONIC VALVE: NORMAL AORTIC VALVE: NORMAL PERICARDIAL EFFUSION: NONE AORTIC ROOT: NORMAL LEFT VENTRICULAR WALL MOTION: NORMAL DOPPLER/COLOR FLOW: MILD TRICUSPID REGURGITATION. COMMENTS: MILD TRICUSPID REGURGITATION. NORMAL LEFT VENTRICULAR SIZE AND FUNCTION. NO WALL MOTION ABNORMALITY. NO EFFUSION. TECHNOLOGIST: Alyse COYNE
== END 2021-04-26 16:00 | disposition home health service (06) ==
LOC: ER 10:21 → ERHOLD 16:16 → 2ND 19:21 → ERHOLD 19:21 → 2ND 19:28
PROVIDERS: ADMIT Internal Medicine; ATTEND Internal Medicine
DX: R42 Dizziness and giddiness (principal); I48.91 Unspecified atrial fibrillation; K21.9 Gastro-esophageal reflux disease without esophagitis; E03.9 Hypothyroidism, unspecified; Z20.822 Contact with and (suspected) exposure to COVID-19
CPT/HCPCS: 96361; 93005 ×2; 93306; 85025 ×2; 80048 ×2; 36415; 83735 ×2; 84100; 85610; 80061; 80076; 84443; 84484; 83880; 70450; 71045; 70553; 92610; 97112; 97116 ×2; 97161; 97530; 94760; 96360; 99284; U0003; A9577; J1650; J3475; J7030 ×2; G0378 ×3

== ENCOUNTER 2021-09-25 18:38 | Emergency (ER) | payer OTHER ==
--- OUTSIDE RECORDS SUMMARY | 2021-09-25 18:44 | XMS REPORT | Continuity of Care Document ---
:[address] [facility] t Address [address] [place] [address] Care Team Providers Name Role Phone Nilton PORTILLO Primary Care Physician KAVON Attending Clinician Unavailable HEMATPOUR Attending Clinician Unavailable Viv Attending Clinician Unavailable Iris HERRMANN Attending Clinician Unavailable Maria Isabel ORLANDO Attending Clinician Unavailable Francisco JORGENSEN, G Attending Clinician HEMATPOUR Attending Clinician Unavailable Yecenia CRAIG Attending Clinician Unavailable Loyda HUANG Attending Clinician Unavailable Only, Test Attending Clinician Unavailable Iris Herrmann MD Attending Clinician Doctor Unassigned, Name Attending Clinician Unavailable MARY Attending Clinician Unavailable Dell Callaway MD Attending Clinician Karina CRAIG, A Attending Clinician Unavailable Jabier VIZCAINO Attending Clinician Felix PORTILLO Attending Clinician ZAIDA Attending Clinician Unavailable Iris HERRMANN Admitting Clinician Unavailable Maria Isabel ORLANDO Admitting Clinician Unavailable Felix MD Admitting Clinician Payers Payer Name Policy Type Policy Number Effective Date Expiration Date Sukh mcfarland HU[employer]NA MEDICARE [id number] 2019 ADVANTAGE HMO 00:00:00 HUMANA MEDICARE MB [id number] ADVANTAGE HUMANA GOLD [facility] [id number] 2019 HMO 00:00:00 MEDICAID OF [place] [id number] 2020 00:00:00 Problems Condition Condition Condition Status Onset Resolution Last Treating Co mments Source Name Details Category Date Date Treatment Clinician Date Malignant Malignant Disease Active [facility] neoplasm neoplasm 225 Health of female of female 00:00: breast breast 00 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 00 Acute Acute Disease Active UT pharyngiti pharyngiti 1-25 He alth s s 00:00: 00 Arthritis Arthritis Disease Active UT of knee, of knee, 125 Health right right 00:00: 00 Cancer Cancer Disease Active UT 1-25 Health 00:00: 00 Contusion Contusion Disease Active UT of left of left 125 Health knee knee 00:00: 00 Cough Cough Disease Active UT 1-25 Health 00:00: 00 Acute Acute Disease Active UT nonintract nonintract 25 He alth able able 00:00: headache headache 00 Intractabl Intractabl Disease Active U T e headache e headache 03-28 He alth 00:00: 00 Memory Memory Disease Active UT problem problem 1- Health 00:00: 00 Osteoporos Osteoporos Disease Active U T is is 125 Health 00:00: 00 Pain in Pain in Disease Active UT right foot right foot 1-25 He alth 00:00: 00 Paresthesi Paresthesi Disease Active U T a of right a of right 1-25 He alth foot foot 00:00: 00 Skin Skin Disease Active UT sensation sensation 1-25 Heal th disturbanc disturbanc 00:00: e e 00 Primary Primary Disease Active UT osteoarthr osteoarthr 1-25 He alth itis of itis of 00:00: [...] Suspected Suspected Disease Active UT COVID-19 COVID-19 03-28 Health virus virus 00:00: infection infection 00 Swelling Swelling Disease Active UT 03-28 Health 00:00: 00 Thyroid Thyroid Disease Active UT disease disease 03-28 Health 00:00: 00 URI, acute URI, acute Disease Active U T 03-28 Health 00:00: 00 Shortness Shortness Disease Active UT of breath of breath 03-14 Heal 00:00: 00 Other Other Disease Active UT chest pain chest pain 03-14 He alth 00:00: 00 Acquired Acquired Disease Active 2020-03 UT hypothyroi hypothyroi 03-22 He alth dism dism 00:00: 00 Anxiety Anxiety Disease Active 2020-03 UT 03-22 Health 00:00: 00 Asthma Asthma Disease Active 2020-03 UT 03-22 Health 00:00: 00 Bipolar Bipolar Disease Active 2020-03 UT disorder disorder 03-22 Health 00:00: 00 Coarse Coarse Disease Active 2020-03 UT tremors tremors 03-22 Health 00:00: 00 Gastroesop Gastroesop Disease Active 2020-03 U T hageal hageal 03-22 Health reflux reflux 00:00: disease disease 00 Migraine Migraine Disease Active 2020-03 UT 03-22 Health 00:00: 00 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 00 Atrial Atrial Disease Active 2020-03 UT fibrillati fibrillati 1-16 He alth on on 00:00: 00 Bradycardi Bradycardi Disease Active 2020-03 U T a a 1-16 Health 00:00: 00 Other Other Disease Active 2019-03 Univers chest pain chest pain 2-30 it y of 00:00: [place] 00 [facility] Branch Shortness Shortness Disease Active 2019-03 Uni vers of breath of breath 2-29 ity of 00:00: [place] [facility] Edema of Edema of Disease Active UT lower lower 2-12 Health extremity extremity 00:00: 00 No known No known Disease Unive rs active active ity of problems problems [facility] Allergies, Adverse Reactions, Alerts Allergy Allergy Status Severity Reaction(s) Onset Inactive Treating Comm ents Source Name Type Date Date Clinician Codeine Propensi Active 2020-03 UT ty to 1-15 Health adverse 00:00: reaction 00 s Codeine Propensi Active Other - See hyperacti Univers ty to comments 10-14 vity ity of adverse 00:00: [place] reaction 00 Medical s Branch CODEINE DRUG Active Other-Cmnt Unive rs INGREDI 8- ity of 00:00: [place] [address] [place] [address] Branch NO KNOWN Drug Active Univers ALLERGIE Class ity of S [facility] Pollen Adverse Active Info Not Common Reaction Available Spiri - [facility] Social History Social Habit Start Date Stop Date Quantity Comments Source History [facility] Health Alcohol Std Drinks History [facility] Health Alcohol Binge History [facility] Health Alcohol Comment Exposure to 2021-08-09 2021-08-19 Not sure University SARS-CoV-2 00:00:00 16:56:00 [facility] (event) Branch Alcohol intake 2021-06-30 2021-06-30 Lifetime [place] [facility] 00:00:00 00:00:00 non-drinker (finding) Tobacco use and 2021-01-16 2021-01-16 Smokeless tobacco [facility] exposure 00:00:00 00:00:00 non-user History SDOH 2021-01-16 2021-01-16 1 [facility] Alcohol Frequency 00:00:00 00:00:00 Sex [birth year] [place] [facility] 00:00:00 00:00:00 Smoking Status Start Date Stop Date Source Tobacco smoking consumption [facility] ealth unknown Never smoker [facility] Branch Medications Ordered Filled Start Stop Current Ordering Indication Dosage Frequency Signature Comments Components Source Medication Medication Date Date Medication? Clinician (SIG) Name Name pramod Yes [id number] 800mg Take 4 Univers r 200 mg 6-18 capsules ity of capsule 00:00: by mouth [place] 00 every 12 Medical (twelve) Branch hours. DULoxetine 2021-0 Yes 60mg Q.5D Take 60 mg U T (Cymbalta) 4-29 by mouth 2 [facility] [address] 13:45: (two) capsule 31 times a day. Do not crush or chew. apixaban 2021-0 Yes 5mg Q.5D Take 5 mg UT (Eliquis) 5 4-29 by mouth 2 He alth MG tablet 13:45: (two) 31 times a day. lamoTRIgine 2021-0 Yes 100mg Q.5D Take 100 U T (LaMICtal) 4-29 mg by Health 100 MG 13:45: mouth 2 tablet 31 (two) times a day. metoprolol 0 Yes 25mg Q.5D Take 25 mg U T tartrate 4-29 by mouth 2 Healt h (Lopressor) 13:45: (two) 50 MG 31 times a tablet day. traZODone 0 Yes 100mg Take 100 UT (Desyrel) 4-29 mg by [facility] 100 MG 13:45: mouth tablet 31 every night. 2 TABS AT BEDTIME triamterene 0 Yes 1{capsu Take 1 U T -hydroCHLOR 4-29 le} capsule by [facility] Othiazide 13:45: mouth 1 (Dyazide) 31 (one) time 37.5-25 MG each day capsule in the morning. Multiple Yes 1{tbl} QD Take 1 UT Vitamins-Mi 4-29 tablet by [facility] nerals 13:45: mouth 1 (Complete) 31 (one) time tablet each day. aspirin 81 2021-0 2021- No 81mg QD Take 81 mg UT MG EC - 04-29 by mouth 1 Health tablet 13:45: 00:00 (one) time 31 :00 each day. lithium 150 2021-0 202- No 150mg Take 150 UT MG capsule 06-30 04-29 mg by Health 13:45: 00:00 mouth 31 :00 every night. omeprazole 2021-0 Yes 40mg Take 40 mg U T (PriLOSEC) 4-22 by mouth 1 Hea lth [address] 00:00: (one) time capsule 00 each day before breakfast. traMADol 0 Yes TAKE 1 TO UT (Ultram) 50 4-07 2 TABLETS Hea lth MG tablet 00:00: BY MOUTH 00 EVERY 8 HOURS Euthyrox 2021-0 Yes 137ug Take 137 UT 137 MCG 4-07 mcg by Health tablet 00:00: mouth 1 00 (one) time each day in the morning. TAKE 1 TABLET BY MOUTH ONCE DAILY IN THE MORNING ON AN EMPTY STOMACH aspirin 81 2021-0 Yes 81mg QD Take 81 mg U T MG EC 3-08 by mouth 1 Health tablet 11:25: (one) time 07 each day. DULoxetine 0 Yes 60mg Q.5D Take 60 mg U T (Cymbalta) 3-08 by mouth 2 Hea lth [address] 11:25: (two) capsule 07 times a day. Do not crush or chew. apixaban 2021-0 Yes 5mg Q.5D Take 5 mg UT (Eliquis) 5 3-08 by mouth 2 He alth MG tablet 11:25: (two) 07 times a day. lamoTRIgine 0 Yes 100mg Q.5D Take 100 U T (LaMICtal) 3-08 mg by Health 100 MG 11:25: mouth 2 tablet 07 (two) times a day. lithium 150 2021-0 Yes 150mg Take 150 U T MG capsule 3-08 mg by Health 11:25: mouth 07 every night. metoprolol 2021-0 Yes 25mg Q.5D Take 25 mg U T tartrate 3-08 by mouth 2 Healt h (Lopressor) 11:25: (two) 50 MG 07 times a tablet day. traZODone 2021-0 Yes 100mg Take 100 UT (Desyrel) 3-08 mg by Health 100 MG 11:25: mouth tablet 07 every night. 2 TABS AT BEDTIME triamterene 2021-0 Yes 1{capsu Take 1 U T -hydroCHLOR 3-08 le} capsule by He alth Othiazide 11:25: mouth 1 (Dyazide) 07 (one) time 37.5-25 MG each day capsule in the morning. Multiple 2021-0 Yes 1{tbl} QD Take 1 UT Vitamins-Mi 3-08 tablet by [facility] nerals 11:25: mouth 1 (Complete) 07 (one) time tablet each day. atorvastati 2022-0 Yes UT n (Lipitor) 3-03 Health 20 MG 00:00: tablet 00 atorvastati 2022-0 Yes UT n (Lipitor) 3-03 Health 20 MG 00:00: tablet 00 metoprolol 2-0 Yes 25mg Q.5D Take 25 mg U T tartrate 2-08 by mouth 2 Healt h (Lopressor) 09:47: (two) 50 MG 35 times a tablet day. aspirin 81 2022-0 Yes 81mg QD Take 81 mg U T MG EC 2-08 by mouth 1 Health tablet 09:05: (one) time 19 each day. DULoxetine 2-0 Yes 60mg Q.5D Take 60 mg U T (Cymbalta) 2-08 by mouth 2 [facility] [address] 09:05: (two) capsule 19 times a day. Do not crush or chew. apixaban 2-0 Yes 5mg Q.5D Take 5 mg UT (Eliquis) 5 2-08 by mouth 2 He alth MG tablet 09:05: (two) 19 times a day. lamoTRIgine 2022-0 Yes 100mg Q.5D Take 100 U T (LaMICtal) 2-08 mg by Health 100 MG 09:05: mouth 2 tablet 19 (two) times a day. lithium 150 2022-0 Yes 150mg Take 150 U T MG capsule 2-08 mg by Health 09:05: mouth 19 every night. traZODone 2022-0 Yes 100mg Take 100 UT (Desyrel) 2-08 mg by Health 100 MG 09:05: mouth tablet 19 every night. 2 TABS AT BEDTIME triamterene 2-0 Yes 1{capsu Take 1 U T -hydroCHLOR 2-08 le} capsule by [facility] Othiazide 09:05: mouth 1 (Dyazide) 19 (one) time 37.5-25 MG each day capsule in the morning. Multiple 2022-0 Yes 1{tbl} QD Take 1 UT Vitamins-Mi 2-08 tablet by [facility] nerals 09:05: mouth 1 (Complete) 19 (one) time tablet each day. levothyroxi 2021-0 2021- No 150ug Take 150 UT ne 2- 02-08 mcg by Health (Tirosint) 09:05: 00:00 mouth 1 150 MCG 19 :00 (one) time capsule each day before breakfast. pantoprazol 2021-0 Yes 40mg QD Take 40 mg UT e 1-25 by mouth 1 Health (ProtoNix) 00:00: (one) time 40 MG EC 00 each day. tablet pantoprazol 2021-0 Yes 40mg QD Take 40 mg UT e 1-25 by mouth 1 Health (ProtoNix) 00:00: (one) time 40 MG EC 00 each day. tablet pantoprazol 2021-0 2021- No 40mg QD Take 40 mg UT e 1-25 04-29 by mouth 1 Health (ProtoNix) 00:00: 00:00 (one) time 40 MG EC 00 :00 each day. tablet sucralfate 0 Yes 1g Q12H Take 1 g UT (Carafate) 1-21 by mouth Healt h 1 g tablet 00:00: every 12 00 (twelve) hours. TAKE 1 TABLET BY MOUTH EVERY 12 HOURS FOR 14 DAYS omeprazole 2021-0 2021- No [id number] TAKE 1 UT (PriLOSEC) 03-15-08 CAPSULE(40 He alth [address] 00:00: 00:00 MG) BY capsule 00 :00 MOUTH 1 TIME EACH DAY. DO NOT CRUSH OR CHEW Biotin 10 2021- No 1{capsu QD Take 1 UT MG capsule 03-14 le} capsule by He alth 11:04: 00:00 mouth 1 56 :00 (one) time each day. levothyroxi 2021-0 Yes 150ug Take 150 U T ne 1-11 mcg by [facility] (Tirosint) 11:04: mouth 1 150 MCG 03 (one) time capsule each day before breakfast. levothyroxi 2021-0 2021- No 200ug Take 200 UT ne -01 02-11 mcg by [facility] (Synthroid, 11:03: 00:00 mouth 1 Levoxyl) 43 :00 (one) time 200 MCG each day tablet before breakfast. lithium 150 2021-0 Yes 150mg Take 150 U T MG capsule 1-11 mg by Health 11:02: mouth 43 every night. omeprazole No 40mg QD Take 40 mg UT (PriLOSEC) 03-14 by mouth 1 He alth [address] 11:01: 00:00 (one) time capsule 38 :00 each day. Do not crush or chew. atorvastati 2021- No 20mg QD Take 20 mg UT n (Lipitor) 03-14 by mouth 1 H ealth 20 MG 10:58: 00:00 (one) time tablet 50 :00 each day. omeprazole 2021- No [id number] 40mg QD Take 1 UT (PriLOSEC) 03-1413 capsule Healt h [address] 00:00: 05:59 (40 mg capsule 00 :00 total) by mouth 1 (one) time each day. Do not crush or chew. levothyroxi 2020-03 Yes 150ug Take 150 U T ne 2-06 mcg by [facility] (Synthroid, 00:00: mouth 1 Levoxyl) 00 (one) time 150 MCG each day tablet in the morning. ON AN EMPTY STOMACH oseltamivir 2020-03 No UT (Tamiflu) 2-03 02-08 Health 75 MG 00:00: 00:00 capsule 00 :00 Biotin 10 2020-03 Yes 1{capsu QD Take 1 UT MG capsule 1-16 le} capsule by [facility] 10:11: mouth 1 05 (one) time each day. Multiple 2020-03 Yes 1{tbl} QD Take 1 UT Vitamins-Mi 1-16 tablet by [facility] nerals 10:11: mouth 1 (Complete) 05 (one) time tablet each day. Multiple 2020-03 Yes 1{tbl} QD Take 1 UT Vitamins-Mi 1-16 tablet by [facility] nerals 10:11: mouth 1 (Complete) 05 (one) [...] U T (PriLOSEC) 1-16 by mouth 1 Hea lth [address] 10:07: (one) time [...] 200 U T ne 1-15 mcg by Health (Synthroid, 16:10: mouth 1 Levoxyl) 06 (one) [...] 40mg Take 40 mg UT n (Lipitor) 1-04 by mouth Heal th 40 MG 00:00: every tablet 00 night. atorvastati 2020-03- No 40mg Take 40 mg UT n (Lipitor) 1-04 01-11 by mouth Hea lth 40 MG 00:00: 00:00 every tablet 00 :00 night. DULOXETINE 2020-03 Yes 60mg Take 60 mg U nivers HCL 0-12 by mouth 2 ity of (CYMBALTA 12:09: (two) [place] ORAL) 16 times Medical daily. Branch LITHIUM 2020-03 Yes 150mg Take 150 Unive rs CITRATE 0-12 mg by ity of ORAL 12:09: mouth 2 [place] 16 (two) Medical times Branch daily. TRAZODONE 2020-03 Yes 100mg Take 100 Uni vers HCL 0-12 mg by ity of (TRAZODONE 12:09: mouth at [place] as ORAL) 16 bedtime. Medical Branch Biotin 2020-03 Yes 1{capsu Take 1 Univer s 10,000 mcg 0-12 le} capsule by ity of Cap 12:09: mouth [place] 16 daily. Medical Branch multivitami 2020-03 Yes 1{tbl} Take 1 Un vinicio n, 0-12 tablet by ity of [place]-minerals 12:09: mouth [place] (COMPLETE 16 daily. Medical MULTIVITAMI Branch N) tablet gabapentin 2020-03 Yes 600mg Take 600 Un vinicio 300 mg 0-12 mg by ity of capsule 12:09: mouth [place] 16 daily. Medical Branch lamoTRIgine 2020-03 Yes 100mg Take 100 U nivers (LAMICTAL) 0-12 mg by ity of 100 mg 12:09: mouth 2 [place] tablet 16 (two) Medical times Branch daily. omeprazole 2020-03 Yes 40mg Take 40 mg U nivers 40 mg 0-12 by mouth ity of capsule 12:09: daily. [place] 16 Medical Branch albuterol Yes UT 108 ( [address]) 00:00: MCG/ACT 00 inhaler albuterol 0 Yes UT 108 ( [address]) 00:00: MCG/ACT 00 inhaler albuterol 2021- No UT 108 ( 9-04 02-08 [facility]) 00:00: 00:00 MCG/ACT 00 :00 [...] ity of capsule 22:15: daily. [place] 49 [facility] Branch flu vaccine 2019-03 2020- No .7mL 0.7 mL, Un vinicio 63 yrs and 2- 12-31 Intramuscu it y of up(PF) 21:45: 21:57 lar, ONCE, [place] (FLUZONE 00 :00 1 dose, Medical HIGHDOSE [place] Branch QUAD -03/03/20 PF) syringe at 1545, 0.7 mL Routine pneumococca 2019-03 2020- No .5mL 0.5 mL, Un vinicio l vac - 12- Intramuscu ity of polyvalent 21:30: 22:01 lar, ONCE, [place] (PNEUMOVAX- 00 :00 1 dose, Medic al 23) [facility] Branch injection 03/03/20 0.5 mL at 1530, [...] 16:15: daily. [place] 49 Medical Branch DULOXETINE 2019-03 [...] capsule 16:15: daily. [place] 49 Medical Branch propranoloL 2019-03 Yes 10mg Take 10 mg Univers 10 mg 2-31 by mouth 2 ity of tablet 16:15: (two) [place] 49 times Medical daily. Branch levothyroxi 2019-03- No [id number] 125ug Take 1 Univers ne 125 mcg 2-31 -31 tablet by ity of tablet 00:00: 05:59 mouth [place] 00 :00 every Medical morning Branch for 30 days. albuterol 2019-03- No [id number] 2{puff} Inhale 2 Univers 90 2-03 04-31 Puffs 4 ity of mcg/actuati 00:00: 05:59 (four) [place] on inhaler 00 :00 times Medical daily for Branch 30 days. levothyroxi 2019-03- No [id number] 125ug Take 1 Univers ne 125 mcg 2-31 01-31 tablet by ity of tablet 00:00: 05:59 mouth [place] 00 :00 every Medical morning Branch for 30 days. albuterol 2019-03- No [id number] 2{puff} Inhale 2 Univers 90 2-31 -31 Puffs 4 ity of mcg/actuati 00:00: 05:59 (four) [place] on inhaler 00 :00 times Medical daily for Branch 30 days. levothyroxi 2019-03- No [id number] 125ug Take 1 Univers ne 125 mcg 04-03 tablet by ity of tablet 00:00: 05:59 mouth [place] 00 :00 every Medical morning Branch for 30 days. albuterol 2019-03- No [id number] 2{puff} Inhale 2 Univers 90 2-03 04- Puffs 4 ity of mcg/actuati 00:00: 05:59 (four) [place] on inhaler 00 :00 times Medical daily for Branch 30 days. levothyroxi 2019-03- No [id number] 125ug Take 1 Univers ne 125 mcg 04-03 tablet by ity of tablet 00:00: 05:59 mouth [place] 00 :00 every Medical morning Branch for 30 days. albuterol 2019-03- No [id number] 2{puff} Inhale 2 Univers 90 2-04-03 Puffs 4 ity of mcg/actuati 00:00: 05:59 (four) [place] on inhaler 00 :00 times Medical daily for Branch 30 days. lamoTRIgine 2019-03- No 100mg Take 100 Univers (LAMICTAL) 2-30 12-29 mg by ity of 100 mg 22:05: 00:00 mouth 2 [place] tablet 21 :00 (two) Medical times Branch daily. ibuprofen 2019-03 Yes 400mg 400 mg, Univ ers (IBU) 2-30 Oral, ity of tablet 400 20:45: Q6HPRN, [place] mg 04 Starting Medical Wed Branch 03/02/20 at 1445, Until Discontinu ed, Routine, Pain (scale 4-6) sulfur 2019-03 2020- No 5mL 5 mL, Univers hexafluorid 2-30 12-30 Intravenou i ty of e microsphr 20:15: 18:35 s, ONCE, 1 [place] (LUMASON) 00 :00 dose, Wed Medic al injection 5 03/02/20 Bran ch mL at 1415, Routine
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
Is this order for a patient with suspected or confirmed COVID-19 infection? Yes propranoloL 2019-03 Yes 10mg 10 mg, Univ ers (INDERAL) 2-30 Oral, BID, ity of tablet 10 14:00: First dose [place] mg 00 on Sat [facility] 03/02/20 Branch at 0800, Until Discontinu ed, Routine lamoTRIgine 2019-03 Yes 100mg 100 mg, Un vinicio (LAMICTAL) 2-30 Oral, BID, ity of tablet 100 14:00: First dose [place] mg 00 on Sat Medical 03/02/20 Branch at 0800, Until Discontinu ed, Routine DULoxetine 2019-03 Yes 60mg 60 mg, Unive rs (CYMBALTA) 2-30 Oral, BID, ity of capsule 60 14:00: First dose [place] mg 00 on Sat [facility] 03/02/20 Branch at 0800, Until Discontinu ed levothyroxi 2019-03 Yes 125ug 125 mcg, U nivers ne 2-30 Oral, ity of (SYNTHROID) 12:00: QAM-0600, [place] tablet 125 00 First dose Med ical mcg on Sat Branch 03/02/20 at 0600, Until Discontinu ed, Routine traZODone 2019-03 Yes 100mg 100 mg, Univ ers (DESYREL) 2-30 Oral, QHS, ity of tablet 100 06:30: First dose [place] mg 00 on Sat Medical 03/02/20 Branch at 0030, Until Discontinu ed TOPIRAMATE 2019-03- No 100mg Take 100 U nivers (TOPAMAX 2-30 12-29 mg by ity of ORAL) 06:29: 00:00 mouth 2 [place] 00 :00 (two) Medical times Branch daily. escitalopra 2019-03- No 20mg Take 20 mg Univers m oxalate 03-01 by mouth ity o f (LEXAPRO) 06:29: 00:00 daily. [place] 20 mg 00 :00 Medical tablet Branch Dexlansopra 2019-03- No 60mg Take 60 mg Univers zole 03-01 by mouth ity of (DEXILANT) 06:29: 00:00 daily. [place] 60 mg 00 :00 Medical capsule Branch albuterol 2019-03 Yes 2{puff} 2 Puff, Un vinicio (VENTOLIN) 2-30 Inhalation ity of inhaler 2 06:27: , Q6HPRN, [place] as Puff 24 Starting Medical [facility] Branch 03/02/20 at 0027, Until Discontinu ed, Routine, Wheezing, Shortness of Breath, Bronchospa sm, Chest tightness< br>Is this order for a patient with suspected or confirmed COVID-19 infection? Yes guaiFENesin 2019-03 Yes 400mg 400 mg, Un vinicio (FENESIN 2-30 Oral, ity of IR) tablet 06:27: Q4HPRN, [place] 400 mg 16 Starting Medical [facility] Branch 03/02/20 at 0027, Until Discontinu ed, Routine, Cough ondansetron 2019-03 Yes 4mg 4 mg, Slow Univers (ZOFRAN 2-30 IV Push, ity of (PF)) 06:26: Q6HPRN, [place] injection 4 10 Starting Medi adriano mg Sat Branch 03/02/20 at 0026, Until Discontinu ed, Routine, Nausea and Vomiting (N/V) acetaminoph 2019-03 Yes 650mg 650 mg, Un vinicio en Oral, ity of (TYLENOL) 06:20: Q6HPRN, [place] tablet 650 40 Starting Medic al mg Sat Branch 03/02/20 at 0020, Until Discontinu ed, Routine, Pain (scale 1-3) enoxaparin 2019-03- No 1mg/kg 70 mg Uni vers (LOVENOX) 03-01 (rounded ity o f injection 00:15: 23:23 [place] 72.6 [place] 70 mg 00 :00 mg = 1 Medical mg/kg Branch ?72.6 kg), Subcutaneo , ONCE, 1 dose, [facility] 03/01/20 at 1815, RAMO ondansetron 2019-03- No 4mg 4 mg, Slow Univers (ZOFRAN 03-01 IV Push, ity of (PF)) 21:15: 20:37 ONCE, 1 [place] injection 4 00 :00 dose, [facility] Med ical mg 03/01/20 Branch at 1515, RAMO morpHINE 2019-03 2020- No 4mg 4 mg, Slow Un vinicio injection 4 03-01 IV Push, ity of mg 21:15: 20:39 ONCE, 1 [place] 00 :00 dose, [facility] 03/01/20 Branch at 1515, STAT aspirin 2019-03 2020- No 325mg 325 mg, Unive rs tablet 325 03-01 Oral, ity of mg 18:15: 18:53 ONCE, 1 [place] 00 :00 dose, [facility] 03/01/20 Branch at 1215, STAT Fluticasone Fluticasone 2019-0 Yes Mary 2 sprays Common Propionate Propionate 2-17 [place] in each Spirit 00:00: nostril - [facility] Albuterol Albuterol 2019-0 Yes Mary 2 puffs as Common Sulfate HFA Sulfate HFA 2-17 [place] needed Spirit 00:00: - [facility] LEVOTHYROXI 2017-0 Yes 175ug Take 175 U nivers NE SODIUM 6-20 mcg by ity of (LEVOTHYROX 16:42: mouth [place] INE ORAL) 24 daily. Medical Branch DULOXETINE Yes 60mg Take 60 mg U nivers HCL 6-20 by mouth 2 ity of (CYMBALTA 16:42: (two) [place] ORAL) 24 times Medical daily. Branch TOPIRAMATE 2018 Yes 100mg Take 100 Un vinicio (TOPAMAX 6-20 mg by ity of ORAL) 16:42: mouth 2 [place] 24 (two) Medical times Branch daily. LITHIUM 2018 Yes 300mg Take 300 Unive rs CITRATE 6-20 mg by ity of ORAL 16:42: mouth [place] 24 daily. Medical Branch TRAZODONE Yes 100mg Take 100 Uni vers HCL 6-20 mg by ity of (TRAZODONE 16:42: mouth at [place] as ORAL) 24 bedtime. Medical Branch escitalopra Yes 20mg Take 20 mg Univers m oxalate 6-20 by mouth ity of (LEXAPRO) 16:42: daily. [place] 20 mg 24 Medical tablet Branch Dexlansopra Yes 60mg Take 60 mg Univers zole 6-20 by mouth ity of (DEXILANT) 16:42: daily. [place] 60 mg 24 Medical capsule Branch levothyroxi Yes 200ug Take 200 U nivers ne 200 mcg 6-20 mcg by ity of tablet 16:42: mouth [place] 24 every Medical morning. Branch Biotin Yes 1{capsu Take 1 Univer s 10,000 [...] [place] 24 daily. Medical Branch inhalationa Yes [id number] May Un vinicio l spacing 2-16 substitute ity of device 00:00: other [place] 00 spacing drier take off tender Branch inhalationa Yes [id number] May Un vinicio l spacing 2-16 substitute ity of device 00:00: other [place] 00 spacing drier take off tender Branch inhalationa Yes [id number] May Un vinicio l spacing 2-16 substitute ity of device 00:00: other spacing drier take off tender Branch inhalationa 2018-0 Yes [id number] May Un vinicio l spacing 2-16 substitute ity of device 00:00: other spacing drier take off tender Branch inhalationa 2018-0 Yes [id number] May Un vniicio l spacing 2-16 substitute ity of device 00:00: other spacing drier take off tender Branch inhalationa 2018-0 Yes [id number] May Un vinicio l spacing 2-16 substitute ity of device 00:00: other spacing drier take off tender Branch HYDROcodone 2018-0 Yes [id number] 1/2 - 1 Univers -acetaminop 2-16 Q4h PRN ity o f hen 5-325 00:00: pain or [place] mg tablet 00 cough Medical requiring Branch Narcotic inhalationa 2017-0 Yes [id number] May Un vinicio l spacing 2-16 substitute ity of device 00:00: other spacing drier take off tender Branch inhalationa 2018-0 Yes [id number] May Un vinicio l spacing 2-16 substitute ity of device 00:00: other spacing drier take off tender Branch inhalationa 2018-0 Yes [id number] May Un vinicio l spacing 2-16 substitute ity of device 00:00: other spacing drier take off tender Branch HYDROcodone 2017-0 2020- No [id number] 1/2 - 1 Univers -acetaminop 2-16 12-29 Q4h PRN ity of hen 5-325 00:00: 00:00 pain [place] tablet 00 :00 cough Medical requiring Branch Narcotic traMADOL 2016-03 Yes 50mg Take 1 Univers (ULTRAM) 50 2-02 tablet by ity of mg tablet 00:00: mouth [place] 00 every 6 Medical (six) Branch hours as needed for Pain (scale 4-6). traMADOL 2016-03 2020- No 50mg Take 1 Univer s (ULTRAM) 50 2-02 12-29 tablet by it y of mg tablet 00:00: 00:00 mouth [place] 00 :00 every 6 Medical (six) Branch hours as needed for Pain (scale 4-6). esomeprazol Yes 40mg Take 1 Univ ers e (NEXIUM) 8-14 capsule by ity of 40 mg 00:00: mouth [place] capsule 00 daily with Medica l breakfast. Branch esomeprazol 2017-0 2020- No 40mg Take 1 Uni vers e (NEXIUM) 8-14 12 capsule by it y of 40 mg 00:00: 00:00 mouth [place] capsule 00 :00 daily with Medica l breakfast. Branch Omeprazole Omeprazole Yes Mary 1 capsule Common Millender [facility] Cymbalta Cymbalta Yes Mary 1 capsule C ommon Millender [facility] Trazodone Trazodone Yes Mary 1 tablet Common HCl HCl Millender at bedtime Spir it [facility] Lamictal Lamictal Yes Mary 1 tablet Co mmon Millender [facility] Levothyroxi Levothyroxi Yes Mary 1 tablet Common ne Sodium ne Sodium Millender in the morning on - [facility] an empty stomach [facility] Biotin Biotin Yes Mary 1 tablet Common Millender [facility] CarBAMazepi CarBAMazepi Yes Mary as Common ne ER ne ER Millender directed Spir it (Antipsych) (Antipsych) [facility] Yes Mary 1 tablet Co mmon Millender [facility] [place] Mary 1 capsule Com mon Carbonate Carbonate Millender at bedtime [facility] Immunizations Ordered Filled Immunization Date Status Comments [facility] e Immunization Name Name Pneumococcal 2020-03-03 Completed University o f Polysaccharide, 00:00:00 [place] Med ical PPSV23 (PNEUMOVAX) Branch Influenza High Dose 2020-03-03 Completed Unive rsity of Quad 00:00:00 [facility] Pneumococcal 2020-03-03 Completed University o f Polysaccharide, 00:00:00 [place] Med ical PPSV23 (PNEUMOVAX) Branch Influenza High Dose 2020-03-03 Completed Unive rsity of Quad 00:00:00 [facility] Pneumococcal 2020-03-03 Completed University o f Polysaccharide, 00:00:00 [place] Med ical PPSV23 (PNEUMOVAX) Branch Influenza High Dose 2020-03-03 Completed Unive rsity of Quad 00:00:00 [facility] Pneumococcal 2020-03-03 Completed University o f Polysaccharide, 00:00:00 [place] Med ical PPSV23 (PNEUMOVAX) Branch Influenza High Dose 2020-03-03 Completed Unive rsity of Quad 00:00:00 [facility] Pneumococcal 2020-03-03 Completed University o f Polysaccharide, 00:00:00 [place] Med ical PPSV23 (PNEUMOVAX) Branch Influenza High Dose 2020-03-03 Completed Unive rsity of Quad 00:00:00 [facility] Pneumococcal 2020-03-03 Completed University o f Polysaccharide, 00:00:00 [place] Med ical PPSV23 (PNEUMOVAX) Branch Influenza High Dose 2020-03-03 Completed Unive rsity of Quad 00:00:00 [facility] Pneumococcal 2020-03-03 Completed University o f Polysaccharide, 00:00:00 [place] Med ical PPSV23 (PNEUMOVAX) Branch Influenza High Dose 2020-03-03 Completed Unive rsity of Quad 00:00:00 [facility] Pneumococcal 2020-03-03 Completed University o f Polysaccharide, 00:00:00 [place] Med ical PPSV23 (PNEUMOVAX) Branch Influenza High Dose 2020-03-03 Completed Unive rsity of Quad 00:00:00 [facility] Vital Signs Vital Name Observation Time Observation Value Comments Source Systolic blood 2021-08-19 23:00:00 131 mm[Hg] Univer sity of pressure [facility] Diastolic blood 2021-08-19 23:00:00 68 mm[Hg] Unive rsity of pressure [facility] Heart rate 2021-08-19 23:00:00 59 /min [facility] Respiratory rate 2021-08-19 23:00:00 12 /min [facility] Oxygen saturation in 2021-08-19 23:00:00 97 /min [facility] Arterial blood by [facility] Pulse oximetry Branch Body temperature 2021-08-19 20:50:00 37.17 Mckenzie [facility] Body height 2021-08-19 20:50:00 162.6 cm [facility] Body weight 2021-08-19 20:50:00 58.514 kg [facility] BMI 2021-08-19 20:50:00 22.14 kg/m2 [facility] Systolic blood 2021-06-30 18:42:00 96 mm[Hg] [facility] pressure Diastolic blood 2021-06-30 18:42:00 61 mm[facility]Hg[facility] Heart rate 2021-06-30 18:42:00 60 [facility] weight 2021-06-30 18:42:00 [facility]596 [facility] BMI 2021-06-30 18:42:00 23.69 [facility] Systolic blood 2021-04-11 15:01:00 127 mm[facility]Hg[facility] Diastolic blood 2021-04-11 15:01:00 75 mm[Hg] [facility] Heart rate 2021-04-11 15:01:00 60 [facility]min [facility] Body weight 2021-04-11 15:01:00 68 [facility] BMI 2021-04-11 15:01:00 25.73 [facility] Systolic blood 2021-01-17 16:01:00 116 mm[Hg[facility] Diastolic blood 2021-01-17 16:01:00 75 mm[Hg] [facility] Heart rate 2021-01-17 16:01:00 57 /min [facility] Body height 2021-01-17 16:01:00 162.6 cm [facility] Body weight 2021-01-17 16:01:00 [facility]04 [facility] BMI 2021-01-17 16:01:00 25.75 [facility] Systolic blood 2020-03-03 17:01:00 149 mm[Hg] Univer sity of [facility] Diastolic blood 2020-03-03 17:01:00 82 mm[Hg] Unive rsity [facility] Heart rate 2020-03-03 17:01:00 75 /min [facility] Body temperature 2020-03-03 17:01:00 37.06 [facility]ckenzie [facility] 2020-03-03 17:01:00 18 /min [facility] Oxygen saturation in 2020-03-03 17:01:00 97 /min [facility] Arterial blood by [facility] Pulse oximetry Branch Body weight 2020-03-03 09:55:00 74.447 kg [facility] BMI 2020-03-03 09:55:00 28.17 kg/m2 [facility] Body height 2020-03-02 03:16:00 162.6 cm [facility] Procedures Procedure Date / Time Performing Clinician Source Performed XR CHEST 1 VW 2021-08-19 21:57:35 Kaylah Orlando [facility] LIPASE 2021-08-19 21:51:00 Kaylah Orlando [facility] TROPONIN I 2021-08-19 21:51:00 Kaylah Orlando [facility] COMP. METABOLIC PANEL 2021-08-19 21:51:00 Kaylah Orlando [facility] ([id number]) [facility] CBC WITH DIFF 2021-08-19 21:51:00 Kaylah Orlando [facility] D-DIMER 2021-08-19 21:51:00 Kaylah Orlando [facility] N-TERMINAL PRO-BNP 2021-08-19 21:51:00 Kaylah Orlando [facility] COVID-19 (ID NOW RAPID 2021-08-19 21:51:00 Kaylah Orlando [facility] TESTING) [facility] ECG 12-LEAD 2021-06-30 18:46:00 Rosalva Jacobson [facility] ECG 12-LEAD 2021-04-11 15:07:00 HematCassius falk [facility] ECG 12-LEAD 2021-01-17 16:11:00 HematpoCassius dai [facility] ASSIGNMENT OF BENEFITS 2020-12-13 16:25:31 Doctor Unassigned, No [facility] ASSIGNMENT OF BENEFITS 2020-07-13 13:51:40 Doctor Unassigned, No [facility] TROPONIN I 2020-03-03 09:24:[address] [facility] COMP. METABOLIC PANEL 2020-03-03 09:24:00 Felix [facility] ([id number]) [facility] LITHIUM 2020-03-03 09:24:00 Natalya Su [facility] CBC WITH DIFF 2020-03-03 09:24:[address] [facility] ECHO ROUTINE W/DOPPLER 2020-03-02 18:05:50 Natalya Su [facility] COLOR [facility] CT CHEST PULMONARY 2020-03-02 16:39:09 [facility] Medical Branch TROPONIN I 2020-03-02 09:54:[facility] MET[facility]OLIC PANEL 2020-03-02 09:54:00 [id number] Medical Branch LITHIUM 2020-03-02 09:54:00 Natalya Su [facility] D-DIMER 2020-03-02 09:54:[facility]IN 2020-03-02 09:54:00 [facility] COVID-19 (MOLECULAR 2020-03-02 01:47:00 Jabier Samina [facility] TESTING [facility] NUCLEIC ACID AMPLIFICATION) TROPONIN I 2020-03-01 21:13:00 Jabier [facility] URINALYSIS 2020-03-01 20:37:00 Jabier [facility] HB ECG ROUTINE & RHYTHM 2020-03-01 19:58:59 Samina Monte [facility] XR CHEST 1 VW 2020-03-01 19:27:43 Jabier [facility] COVID-19 (ID NOW RAPID 2020-03-01 18:45:00 [facility] Branch TROPONIN I 2020-03-01 18:42:00 Jabier [facility] HEPATIC FUNCTION PANEL 2020-03-01 18:42:00 [facility] ([id number] (ALB,T.PRO,BILI [facility] T,BU/BC,ALT,AST,ALK PHOS) BASIC METABOLIC PANEL 2020-03-01 18:42:00 Monte, Samina [facility] (NA, K, CL, CO2, Medical Branch GLUCOSE, BUN, CREATININE, CA) CBC WITH DIFF 2020-03-01 18:42[facility]00 [facility] / INR 2020-03-01 18:42:00 Samina Monte [facility] N-TERMINAL PRO-BNP 2020-03-01 18:42:00 Samina Monte [facility] HB ECG ROUTINE & RHYTHM 2020-03-01 18:19:10 Samina Monte [facility] NOTICE OF PRIVACY 2020-03-01 17:59:26 Doctor Unassigned, No Univ [facility] PRACTICES Name Medical Branch CONSENT/REFUSAL FOR 2020-03-01 17:57:15 Doctor Unassigned, No [facility] Name Medical Branch AUTHORIZATION FOR 2019-12-01 05:01:00 Doctor Unassigned, No [facility] RELEASE OF PHI Name Medical Branch Encounters Start End Encounter Admission Attending Care Care Encounter Source Date/Time Date/Time Type Type Clinicians Facility Department ID 2021-07-10 Outpatient [facility] [id number] [place] 09:12:59 [id number] [facility] 2021-06-30 Outpatient [facility] [id number] [facility] 13:36:08 ROSALVA [id number] [facility] 2021-06-[address] [facility] [id number] Common 16:00:02 [id number] [facility] 2021-06-21 Outpatient [facility] [id number] [place] 09:20:09 ROSALVA [id number] [facility] 2021-06-20 Outpatient [facility] [id number] [place] 11:21:36 [id number] [facility] 2021-06-16 Outpatient [facility] [id number] [place] 16:15:27 ROSALVA [id number] [facility] 2021-06-13 Outpatient [facility] [id number] [place] 10:49:28 ROSALVA [id number] [facility] 2021-06-07 Outpatient [facility] [id number] [place] 11:50:58 [id number] [facility] 2021-06-02 Outpatient BAYTN BAYTN [id number] [place] 14:55:54 [id number] [facility] 2021-05-31 Outpatient BAYTN BAYTN [id number] [place] 13:23:54 [id number] [facility] 2021-04-11 Outpatient HEMATPOUR, [facility] [id number] [place] 09:55:10 CASSIUS chang 2021-03-29 Outpatient Millender, STLMLC STLMLC [id number] Common 11:51:21 Mary [id number] [facility] 2021-03-29 Outpatient Millender, STLMLC STLMLC [id number] Common 11:50:06 Mary 14110 [facility] 2021-03-29 Outpatient Millender, STLMLC STLMLC [id number] Common 11:37:49 Mary [id number] [facility] 2021-03-29 Outpatient Millender, STLMLC STLMLC Common 11:08:10 Mary [id number] [facility] 2021-03-29 Outpatient Millender, STLMLC STLMLC [id number] Common 11:03:08 Mary [id number] [facility] 2021-01-03 Outpatient R CHARJUANYDDIN [facility] [id number] Univers 02:40:07 EGARRETT ity [facility] 2020-12-31 Emergency [facility] [id number] Univers 13:37:29 ity [facility] 2021-08-19 2021-08-19 Emergency X [facility] ERT [id number] Univers 15:52:00 18:26:00 KAYLAH arredondo [facility] 2021-08-19 2021-08-19 Emergency [facility] [id number] Univers 15:52:00 18:26:00 Kaylah STONER [id number] ity [facility] 4.2.7.2.686 [facility] [id number] [facility] 084 Branch 2021-07-26 2021-07-26 ambulatory STLMLC STLMLC [id number] Common 00:00:00 00:00:00 [facility] 2021-07-04 2021-07-04 ambulatory STLMLC STLMLC [id number] Common 00:00:00 00:00:00 [facility] 2021-06-302021-06-30 Office Kavon HUMBERTO [facility] [id number] [place] 13:45:00 14:27:59 Visit Rosalva SE MED [id number] H ealth PLAZA 2 9.2.7.2.686 [id number] 2 2021-06-29 2021-06-29 ambulatory STLMLC STLMLC [id number] Common 00:00:00 00:00:00 [facility] 2021-06-09 2021-06-09 Outpatient HEMATPOUR, [facility] CAR [id number] [facility] 06:54:00 11:30:00 KHASHAYAR 2021-05-12 2021-05-12 Telephone Henna Keene [facility] 1.2.840 .114 [id number] [place] 00:00:00 00:00:00 Henna Keene SE MED [id number] Health PLAZA 2 [id number] [id number] 2 2021-04-11 2021-04-11 Office Hematposuhas, [facility] 1.2.840.114 [id number] [place] 09:45:00 09:55:09 Visit Khashayar SE MED [id number] Health PLAZA 2 9.2.7.2.686 [id number] 2 2021-03-24 2021-03-25 Outpatient HEMATPOUR, [facility] CAR [id number] [facility] 05:57:00 09:50:00 KHASHAYAR 2021-03-22 2021-03-22 Outpatient R [facility] [id number] [facility] 12:00:00 12:00:00 [id number] ity [facility] 2021-03-14 2021-03-14 Telemedici Hematpour, [facility] 1.2.840.114 [id number] [place] 11:00:00 11:12:43 ne Khashayar SE MED [id number] Health PLAZA 2 [id number] [id number] 2 2021-01-17 2021-01-17 Office Hematpour, [facility] 1.2.840.114 [id number] [place] 09:58:26 10:50:06 [facility] [id number] Health PLAZA 2 9.2.7.2.686 [id number] 2 2021-01-16 2021-01-16 Telephone HUMBERTO Ramirez [facility] 1.2.840.114 [id number] [place] 00:00:00 00:00:00 Khashayar SE MED [id number] Health PLAZA 2 [id number] [id number] 2 2021-01-16 2021-01-16 Abstract Chelsie Scales [facility] 1.2.840.11 [id number] [place] 00:00:00 00:00:00 Chelsie Scales SE MED [id number] Health PLAZA 2 9.2.7.2.686 [id number] 2 2020-12-13 2020-12-13 Laboratory Only, Adc Test [facility] 1.2.840. 114 [id number] Univers 11:27:54 11:42:54 Only Garrett Herrmann 350.1.1 3.10 ity of [place] 4[facility].7.2.686 [facility] [id number] [facility] 353 Branch 2020-12-13 2020-12-13 Outpatient R [facility] [id number] Univers 08:45:00 08:45:00 [id number] ity of [facility] 2020-12-13 2020-12-13 Outpatient R LEATHA [facility] [id number] Univers 08:45:00 08:45:00 GARRETT Morin o f [facility] 2020-12-13 2020-12-13 Orders Doctor ODALIS 1.2.840.114 [id number] Univers 00:00:00 00:00:00 Only Unassigned, TERESA 350.1.13.10 [facility] 4.2.7.2.686 Robert [id number] [facility] 009 Branch 2020-11-23 2020-11-23 Outpatient STLMLC STLMLC [id number] Common 00:00:00 00:00:00 Spirit - [facility] 2020-11-22 2020-11-22 Outpatient STLMLC STLMLC [id number] Common 00:00:00 00:00:00 [facility] 2020-07-13 2020-07-13 Outpatient R [facility] [id number] Univers 07:00:00 07:00:00 [id number] ity of [facility] 2020-07-13 2020-07-13 Outpatient R MARY, [facility] [id number] Univers 00:00:00 00:00:00 LIZETH ity o f [facility] 2020-07-13 2020-07-13 Orders Doctor ODALIS 1.2.840.114 [id number] Univers 00:00:00 00:00:00 Only Unassigned, TERESA 350.1.13.10 [facility] 4.2.7.2.686 Robert as [id number] [facility] 009 Branch 2020-05-31 2020-05-31 Outpatient STLMLC STLC [id number] Common 00:00:00 00:00:00 [facility] 2020-03-07 2020-03-07 Telephone Matteo Callaway [facility] 1.2.840.114 [id number] Univers 00:00:00 00:00:00 Dell Stoner 350.1.13.10 i ty [place]2.[place] [id number] [facility] 081 Branch 2020-03-07 2020-03-07 Transition Kourtney Collins 1.2.840.114 [id number] Univers 00:00:00 00:00:00 of Care Frank Lugo 350.1.13.10 ity of [place].7.2.686 [place] [id number] [facility] 403 Branch 2020-03-07 2020-03-07 Transition Kourtney Collins 1.2.840.114 [id number] 00:00:00 00:00:00 of Care Frank A Lugo 350.1.13.10 [place] 4.2.7.2.686 [id number] 2020-03-01 2020-03-03 Emergency [place], Samina [facility] 1.2.840 .114 [id number] Univers 12:08:00 16:15:00 Keely [place] 350.1.13.10 ity [facility] 4.2.7.2.686 [facility] [id number] [facility] 081 Branch 2020-03-01 2020-03-01 Outpatient R ZAIDA [facility] [id number] Univers 11:40:00 11:40:00 OMDEON ity of [facility] 2019-12-10 2019-12-10 Outpatient STLMLC STLMLC [id number] Common 00:00:00 00:00:00 [facility] 2019-12-04 2019-12-04 Outpatient STLMLC STLMLC [id number] Common 00:00:00 00:00:00 [facility] 2019-12-01 2019-12-01 Orders Doctor JACOBO 1.2.840.114 [id number] Univers 00:00:00 00:00:00 Only Unassigned, TERESA 350.1.13.10 ity of [facility] 4.2.7.2.686 [facility] [id number] [facility] 009 Branch 2019-12-01 2019-12-01 Outpatient STLMLC STLMLC [id number] Common 00:00:00 00:00:00 [facility] 2019-12-01 2019-12-01 Outpatient STLMLC STLMLC [id number] Common 00:00:00 00:00:00 [facility] 2019-11-10 2019-11-10 Out[facility] [id number] Common 14:30:00 14:30:00 [facility] [address] [facility] 2019-11-04 2019-11-04 Outpatient [facility] [id number] Common 10:40:00 10:40:00 t [facility] [address] [facility] 2019-10-06 2019-10-06 Outpatient [facility] [id number] Common 16:20:00 16:20:00 t [facility] it Road [facility] 2019-08-27 2019-08-27 Outpatient Debbie Galarzamariselat [id number] Common 16:00:00 16:00:[address] [facility] 2019-05-01 2019-05-01 Outpatient Debbie Lewist [id number] Common 13:50:00 13:50:[address] [facility] 2019-04-24 2019-04-24 Outpatient Debbie Galarzamariselat [id number] Common 13:53:00 13:53:[address] [facility] 2019-04-20 2019-04-20 Outpatient Debbie Galarzamariselat [id number] Common 10:15:00 10:15:[address] [facility] [address] [facility] 2019-03-27 2019-03-27 Outpatient Debbie Lewist [id number] Common 15:15:00 15:15:00 [address] [facility] [address] [facility] Results Test Description Test Time Test Comments Results Result Comments Source CBC WITH DIFF 2021-08-19 22:42:35 Test Item Value Reference Range Interpretation Comme nts WBC (test code = 6690-2) See_Comment H [A utomated message] The system which ge nerated this result transmit abhishek reference range: 4.30 - 1 1.10 10*3/?L. The reference r favian was not used to interpr et this result as normal/abnor mal. RBC (test code = 789-8) See_Comment [Au tomated message] The system which ge nerated this result transmit abhishek reference range: 3.93 - 5 .25 10*6/?L. The reference r favian was not used to interpr et this result as normal/abnor mal. HGB (test code = 718-7) 13.5 g/dL 11.6-15.0 HCT (test code = 4544-3) 40.3 % 35.7-45.2 MCV (test code = 787-2) 84.3 fL 80.6-95.5 MCH (test code = 785-6) 28.2 pg 25.9-32.8 MCHC (test code = 786-4) 33.5 g/dL 31.6-35.1 RDW-SD (test code = 48491-6) 38.2 fL 39.0-49.9 L RDW-CV (test code = 788-0) 12.5 % 12.0-15.5 PLT (test code = 777-3) See_Comment [Au tomated message] The system which ge nerated this result transmit abhishek reference range: 166 - 35 8 10*3/?L. The reference range was not used to interpret th is result as normal/abnormal . MPV (test code = 43154-4) 10.3 fL 9.5-12.9 NRBC/100 WBC (test code = See_Comment [ Automated message] The [id number]) system which ge nerated this result transmit abhishek reference range: 0.0 - 10 .0 /100 WBCs. The reference r favian was not used to interpr et this result as normal/abnor mal. NRBC x10^3 (test code = <0.01 See_Comment [Au tomated message] The [id number]) system which ge nerated this result transmit abhishek reference range: 10*3/?L. The reference range was not u sed to interpret this result as normal/abnormal . GRAN MAT (NEUT) % (test code 57.6 % = 770-8) IMM GRAN % (test code = 0.50 % [id number]) LYMPH % (test code = 736-9) 33.4 % MONO % (test code = 5905-5) 8.1 % EOS % (test code = 713-8) 0.0 % BASO % (test code = 706-2) 0.4 % GRAN MAT x10^3(ANC) (test 7.58 10*3/uL 1.88-7.09 H code = 5631311735) IMM GRAN x10^3 (test code = 0.06 10*3/uL 0.00-0.06 [id number]) LYMPH x10^3 (test code = 4.39 10*3/uL 1.32-3.29 H 731-0) MONO x10^3 (test code = 1.07 10*3/uL 0.33-0.92 H 742-7) EOS x10^3 (test code = <0.03 0.03-0.39 L 711-2) BASO x10^3 (test code = 0.05 10*3/uL 0.01-0.07 704-7) REACT LYMPHS (test code = Moderate [id number]) Lab Interpretation (test Abnormal code = 42595-9) [id number]:28[facility]17 Test Item Value Reference Interpretation Comments Range TROPONIN I (test 0.008 ng/mL See_Comment [Automated code = [id number]) message] The system which generated this result transmitted reference range : <=0.034. The reference range was not used to interpret this result as normal/abnormal . CHERYL (test code = Reference (Normal) CHERYL) Range (defined by the 99th percentile reference limit): <= 0.034 ng/mL Note: Cardiac troponin begins to rise 3-4 hours after the onset of ischemia. Repeat in 4-6 hours if the sample was drawn within 3-4 hours of the onset of the symptom and found normal. Diagnosis of myocardial injury is made with acute changes in cTn concentrations with at least one serial sample above the 99th percentile upper reference limit (URL), taken together with the patient's clinical presentation. Biotin has been reported to cause a negative bias, interpret results relative to patient's use of biotin. Lab Interpretation Normal (test code = 31844-3) [facility] [id number] 22:25:16 Test Item Value Reference Range Interpretation Comments NT-proBNP (test code 270 pg/mL See_Comment H [Autom ated = 9358703172) message] The system which generated this result transmitted reference range : <=125. The reference range was not used to interpret this result as normal/abnormal . CHERYL (test code = CHERYL) Biotin has been reported to cause a negative bias, interpret results relative to patient's use of biotin. Lab Interpretation Abnormal (test code = 38342-8) [facility][id number] 22:23:10 Test Item Value Reference Interpretation Comments Range D-DIMER (test code = <0.27 See_Comment [Autom ated 7661195632) message] The system which generated this result [...] diagnosis. Lab Interpretation Normal (test code = 19611-6) [facility]. METABOLIC PANEL (26870)2021-08-19 22:17:18 Test Item Value Reference Range Interpretation Comments NA (test code = 137 mmol/L 135-145 2916920143) K (test code = 3.9 mmol/L 3.5-5.0 7112727808) CL (test code = 102 mmol/L 98-108 5081813935) CO2 TOTAL (test code = 25 mmol/L 23-31 3707488188) AGAP (test code = 2-16 4249545113) BUN (test code = 28 mg/dL 7-23 H 9177118625) GLUCOSE (test code = 99 mg/dL 70-110 1256923242) CREATININE (test code = 0.87 mg/dL 0.50-1.04 9753727273) TOTAL BILI (test code = 0.9 mg/dL 0.1-1.7 8208443277) CALCIUM (test code = 9.4 mg/dL 8.6-10.6 6851008825) T PROTEIN (test code = 5.9 g/dL 6.3-8.2 L 9509190516) ALBUMIN (test code = 4.0 g/dL 3.5-5.0 4420864309) ALK PHOS (test code = 94 U/L 34-122 1063550574) ALTv (test code = 27 U/L 5-35 1742-6) AST(SGOT) (test code = 31 U/L 13-40 1664704256) eGFR (test code = mL/min/1.73m2 1131154337) CHERYL (test code = CHERYL) Association of [...] tests). Lab Interpretation Abnormal (test code = 13849-7) [facility] 22:16:37 Test Item Value Reference Range Interpretation Comments LIPASE (test code = 3173242702) 53 U/L 0-220 Lab Interpretation (test code = Normal 09626-4) [address]2022-04-29 18:46:00 Test Item Value Reference Range Interpretation Comments Lab Interpretation (test code = Normal 22227-2) [place] [id number] 15:07:00 Test Item Value Reference Range Interpretation Comments Lab Interpretation (test code = Abnormal 34857-4) [address]2021-11-16 16:11:00 Test Item Value Reference Range Interpretation Comments Lab Interpretation (test code = Abnormal 04544-2) [id number] 12:30[facility]00 Test Item Value Reference Range Interpretation Comments TROPONIN I (test <0.012 See_Comment [Automated code = 7439649388) message] The system which generated this result [...] ? Lab Interpretation Normal (test code = 25584-3) [facility] METABOLIC PANEL (24118)2020-03-03 12:21:00 Test Item Value Reference Range Interpretation Comments NA (test code = 138 mmol/L 135-145 0857640514) K (test code = 4.7 mmol/L 3.5-5 6808112997) CL (test code = 103 mmol/L 98-108 8544027240) CO2 TOTAL (test code = 31 mmol/L 23-31 3714032596) AGAP (test code = 2-16 9573554204) BUN (test code = 19 mg/dL 7-23 0328143557) GLUCOSE (test code = 110 mg/dL 70-110 7083585333) CREATININE (test code = 0.66 mg/dL 0.5-1.04 8157861948) TOTAL BILI (test code = 0.7 mg/dL 0.1-1.7 0007579392) CALCIUM (test code = 9.8 mg/dL 8.6-10.6 2354187260) T PROTEIN (test code = 5.6 g/dL 6.3-8.2 L 0017409888) ALBUMIN (test code = 3.6 g/dL 3.5-5 3402311056) ALK PHOS (test code = 74 U/L 34-122 4433144914) ALTv (test code = 19 U/L 5-35 1742-6) AST(SGOT) (test code = 28 U/L 13-40 9212188894) eGFR Calculation mL/min/1.73m2 (Non-) (test code = 5472510889) eGFR Calculation mL/min/1.73m2 () (test code = 6280626931) CHERYL (test code = CHERYL) Association of [...] tests). Lab Interpretation Abnormal (test code = 51013-5) [facility]2020-12-31 12:19:00 Test Item Value Reference Range Interpretation Comments [place] (test code = 0.3 mmol/L 0.6-1.2 L 4032268602) CHERYL (test code = CHERYL) Toxic Range: ? Greater than 1.2 mmol/L Lab Interpretation (test Abnormal code = 81328-8) [facility] with [id number] 10:20:00 Test Item Value Reference Range Interpretation Comments WBC (test code = See_Comment [Automated 5490-2) message] The sy stem which generated this result transmitted reference range : 4.30 - 11.10 10*3/?L. The reference range was not used to interpret this result as normal/abnormal . RBC (test code = See_Comment [Automated 516-8) message] The sy stem which generated this [...] RDW-SD (test code = 40.9 fL 39-49.9 98959-2) RDW-CV (test code = 12.8 % 12-15.5 788-0) PLT (test code = See_Comment [Automated 987-3) message] The sy stem which generated this result transmitted reference range : 166 - 358 10*3/ ?L. The reference r favian was not used to interpret this result as normal/abnormal . MPV (test code = 11.0 fL 9.5-12.9 35200-3) NRBC/100 WBC (test See_Comment [Automat ed code = 2306015630) message] The system which generated this result transmitted reference range : 0.0 - 10.0 /100 WBCs. The refer ence range was not u sed to interpret th is result as normal/abnormal . NRBC x10^3 (test code <0.01 See_Comment [Auto mated = 3697053436) message] The s ystem which generated this result transmitted reference range : 10*3/?L. The reference range was not used to interpret this result as normal/abnormal . GRAN MAT (NEUT) % 69.3 % (test code = 770-8) IMM GRAN % (test code 0.20 % = 6954208328) LYMPH % (test code = 22.9 % 736-9) MONO % (test code = 7.4 % 5905-5) EOS % (test code = 0.0 % 713-8) BASO % (test code = 0.2 % 706-2) GRAN MAT x10^3(ANC) 6.19 10*3/uL 1.88-7.09 (test code = 3355673068) IMM GRAN x10^3 (test <0.03 0-0.06 code = 0823747023) LYMPH x10^3 (test code 2.05 10*3/uL 1.32-3.29 = 731-0) MONO x10^3 (test code 0.66 10*3/uL 0.33-0.92 = 742-7) EOS x10^3 (test code = <0.03 0.03-0.39 L 711-2) BASO x10^3 (test code <0.03 0.01-0.07 = 704-7) Lab Interpretation Abnormal (test code = 08026-2) [facility] CHEST PULMONARY [id number] 20:15:03 1. ?No acute pulmonary embolism down [...] reviewed this study and agree withthe above report.[facility] AliceCORONAVIRUS COVID-19 [id number] 19:14:00 Test Item Value Reference Range Interpretation Comments SARS-CoV-2 NAAT (test Not Detected Not Detected code = 13553-9) CHERYL (test code = CHERYL) Alma [employer] Aptima SARS-CoV-2 Assay is a nucleic acid amplification test intended for the qualitative detection of RNA from SARS-CoV-2 from nasopharyngeal (MANAGER UROLOGY) specimens. ?It is used under Emergency Use [...] indicated. Lab Interpretation Normal (test code = 90291-5) [facility]2020-12-30 18:21:00 Test Item Value Reference Range Interpretation Comments [place] (test code = 0.4 mmol/L 0.6-1.2 L 8851503422) CHERYL (test code = CHERYL) Toxic Range: ? Greater than 1.2 mmol/L Lab Interpretation (test Abnormal code = 00789-7) [facility] AlicePROCALCITONIN2020-12-30 16:59:00 Test Item Value Reference Range Interpretation Comments Procalcitonin (test 0.02 ng/mL <0.07 code = 1459741372) CHERYL (test code = CHERYL) INTERPRETATION OF [...] lung abscess/empyema. For further information please refer to:[email or web address] Lab Interpretation Normal (test code = 89615-3) [facility] AliceRED [id number] 11:40:00 Test Item Value Reference Range Interpretation Comments TROPONIN I (test <0.012 See_Comment [Automated code = 6892614534) message] The system which generated this result [...] ? Lab Interpretation Normal (test code = 22330-2) [facility]. METABOLIC PANEL (24089)2020-03-02 11:29:00 Test Item Value Reference Range Interpretation Comments NA (test code = 139 mmol/L 135-145 4756821528) K (test code = 4.2 mmol/L 3.5-5 3784846590) CL (test code = 106 mmol/L 98-108 1419307187) CO2 TOTAL (test code = 30 mmol/L 23-31 4124925887) AGAP (test code = 2-16 0277161708) BUN (test code = 13 mg/dL 7-23 8128656254) GLUCOSE (test code = 98 mg/dL 70-110 6820364831) CREATININE (test code = 0.63 mg/dL 0.5-1.04 9979661968) TOTAL BILI (test code = 0.8 mg/dL 0.1-1.5 5773342054) CALCIUM (test code = 9.2 mg/dL 8.6-10.6 6238555219) T PROTEIN (test code = 5.5 g/dL 6.3-8.2 L 1448082778) ALBUMIN (test code = 3.5 g/dL 3.5-5 7092548432) ALK PHOS (test code = 72 U/L 34-122 7464703595) ALTv (test code = 18 U/L 5-35 1742-6) AST(SGOT) (test code = 31 U/L 13-40 7910443898) eGFR Calculation mL/min/1.73m2 (Non-) (test code = 5927128526) eGFR Calculation mL/min/1.73m2 () (test code = 6035362398) CHERYL (test code = CHERYL) Association of [...] tests). Lab Interpretation Abnormal (test code = 54516-0) [facility] AliceD-[id number] 11:20:00 Test Item Value Reference Interpretation Comments Range D-DIMER (test code = <0.27 See_Comment [Autom ated 7457409730) message] The system which generated this result [...] diagnosis. Lab Interpretation Normal (test code = 37304-9) [facility] AliceTROPONIN [id number] 22:00:00 Test Item Value Reference Range Interpretation Comments TROPONIN I (test <0.012 See_Comment [Automated code = 8133415430) message] The system which generated this result [...] ? Lab Interpretation Normal (test code = 32354-9) [facility] AliceUrinalysis2020-12-29 21:11:00 Test Item Value Reference Range Interpretation Comments APPEARANCE (test code = Clear Clear 5073605067) COLOR (test code = Yellow Yellow 8632181010) PH (test code = 4.8-8.0 6388801312) SP GRAVITY (test code = 1.003-1.030 0456421407) GLU U QUAL (test code = Normal Normal 0171995614) BLOOD (test code = Negative Negative 9062374594) KETONES (test code = Negative Negative 0406208469) PROTEIN (test code = Negative Negative 2887-8) UROBILIN (test code = Normal Normal 4055006659) BILIRUBIN (test code = Negative Negative 0749170168) NITRITE (test code = Negative Negative 2502113384) LEUK BENJI (test code = 25/uL Negative A 9478812902) RBC/HPF (test code = <1 See_Comment [Autom ated message] 2043579701) The system [employer] generated this result transmitted ref erence range: 0 - 3 HP F. The reference range was not used to int erpret this result as normal/abnormal . WBC/HPF (test code = <1 See_Comment [Autom ated message] 3647587679) The system [employer] generated this result transmitted ref erence range: 0 - 5 HP F. The reference range was not used to int erpret this result as normal/abnormal . BACTERIA (test code = Negative Negative 0137494336) Lab Interpretation (test Abnormal code = 05327-7) [facility] 1 [id number] 20:13:00Impression: No evidence of focal air space [...] limited sensitivity in evaluating for pulmonary masses. [facility], Radiant Results Inft User - 03/01/2020 2:14 PM CSTClinical indication: Shortness of breath.Ordering Physician: SAMINA Daley: A single AP view of the chest [...] Toño Murray MD at 1 05/02/2019 2:13 [facility]Un[facility] [id number] 19:22:00 Test Item Value Reference Range Interpretation Comments TROPONIN I (test <0.012 See_Comment [Automated code = 6862901033) message] The system which generated this result [...] ? Lab Interpretation Normal (test code = 70332-2) [facility]MINAL [id number] 19:20:00 Test Item Value Reference Range Interpretation Comments NT-proBNP (test code 460 pg/mL See_Comment H [Autom ated = 3517716148) message] The system which generated this result transmitted reference range : <=125. The reference range was not used to interpret this result as normal/abnormal . CHERYL (test code = CHERYL) Biotin has been reported to cause a negative bias, interpret results relative to patient's use of biotin. Lab Interpretation Abnormal (test code = 24696-2) [facility] AliceCOVID-[facility] (ID NOW RAPID TESTING)2020-03-01 19:15:00 Test Item Value Reference Range Interpretation Comments SARS-CoV-2 Rapid ID NOW Not Detected Not Detected (test code = 93440-7) CHERYL (test code = CHERYL) ID NOW COVID-19 Assay is an isothermal nucleic acid amplification test intended for the qualitative detection of nucleic acid from SARS-CoV-2 viral RNA in nasopharyngeal (MANAGER UROLOGY) specimens. It is used under Emergency Use [...] indicated. Lab Interpretation Normal (test code = 83533-5) [facility] (NA, K, CL, CO2, GLUCOSE, BUN, CREATININE, CA)2020-03-01 19:10:00 Test Item Value Reference Range Interpretation Comments NA (test code = 139 mmol/L 135-145 4902436967) K (test code = 3.9 mmol/L 3.5-5 8798207914) CL (test code = 105 mmol/L 98-108 2020375112) CO2 TOTAL (test code = 27 mmol/L 23-31 6016717988) AGAP (test code = 2-16 7763156809) BUN (test code = 13 mg/dL 7-23 4167992669) GLUCOSE (test code = 92 mg/dL 70-110 3070836308) CREATININE (test code 0.67 mg/dL 0.5-1.04 = 0152960823) CALCIUM (test code = 9.4 mg/dL 8.6-10.6 7303066628) eGFR Calculation mL/min/1.73m2 (Non-) (test code = 4053002912) eGFR Calculation mL/min/1.73m2 () (test code = 5618561423) CHERYL (test code = CHERYL) Association of [...] or urine or abnormalities in imaging tests). [facility] AliceHepatic Function Panel (ALB, T.PRO, BILI T, BU/BC, ALT, AST, ALK PHOS)2020-03-01 19:10:00 Test Item Value Reference Range Interpretation Comments TOTAL BILI (test code = 3189619000) 0.5 mg/dL 0.1-1.1 BILI UNCON (test code = 4004496018) 0.3 mg/dL 0.1-1.1 BILI CONJ (test code = 1801499488) 0.0 mg/dL 0-0.3 T PROTEIN (test code = 1290065978) 6.5 g/dL 6.3-8.2 ALBUMIN (test code = 8800554016) 4.1 g/dL 3.5-5 ALK PHOS (test code = 3749757454) 88 U/L 34-122 ALTv (test code = 1742-6) 21 U/L 5-35 AST(SGOT) (test code = 2086124871) 27 U/L 13-40 Lab Interpretation (test code = Normal 33853-2) [facility] AliceProthrombin Time (PT) / [id number] 19:05:00 Test Item Value Reference Range Interpretation Comments PROTIME PATIENT (test See_Comment [Auto mated message] code = 5964-2) The system wh ich generated this result transmitted ref erence range: 12.0 - 1 4.7 Seconds. The re ference range was not u sed to interpret this result as normal/abnor mal. INR (test code = 6301-6) Nor mal INR <1.1; Warfarin Therap eutic range 2.0 to 3. 0 or 2.5 to 3.5, dep ending upon the indica tions. Lab Interpretation (test Normal code = 56602-9) [facility] Alice[facility] with [id number] 19:00:00 Test Item Value Reference Range Interpretation Comments WBC (test code = See_Comment [Automated 1590-2) message] The sy stem which generated this result transmitted reference range : 4.30 - 11.10 10*3/?L. The reference range was not used to interpret this result as normal/abnormal . RBC (test code = See_Comment [Automated 621-8) message] The sy stem which generated this [...] RDW-SD (test code = 42.2 fL 39-49.9 97941-4) RDW-CV (test code = 12.9 % 12-15.5 788-0) PLT (test code = See_Comment [Automated 777-3) message] The sy stem which generated this result transmitted reference range : 166 - 358 10*3/ ?L. The reference r favian was not used to interpret this result as normal/abnormal . MPV (test code = 10.3 fL 9.5-12.9 70764-6) NRBC/100 WBC (test See_Comment [Automat ed code = 2280085959) message] The system which generated this result transmitted reference range : 0.0 - 10.0 /100 WBCs. The refer ence range was not u sed to interpret th is result as normal/abnormal . NRBC x10^3 (test code <0.01 See_Comment [Auto mated = 8442152886) message] The s ystem which generated this result transmitted reference range : 10*3/?L. The reference range was not used to interpret this result as normal/abnormal . GRAN MAT (NEUT) % 66.0 % (test code = 770-8) IMM GRAN % (test code 0.40 % = 4002043717) LYMPH % (test code = 27.0 % 736-9) MONO % (test code = 6.0 % 5905-5) EOS % (test code = 0.1 % 713-8) BASO % (test code = 0.5 % 706-2) GRAN MAT x10^3(ANC) 6.01 10*3/uL 1.88-7.09 (test code = 2108459929) IMM GRAN x10^3 (test 0.04 10*3/uL 0-0.06 code = 4045971139) LYMPH x10^3 (test code 2.46 10*3/uL 1.32-3.29 = 731-0) MONO x10^3 (test code 0.55 10*3/uL 0.33-0.92 = 742-7) EOS x10^3 (test code = <0.03 0.03-0.39 L 711-2) BASO x10^3 (test code 0.05 10*3/uL 0.01-0.07 = 704-7) Lab Interpretation Abnormal (test code = 76936-7) [facility]
[2021-09-25 19:23] LABS: Absolute Lymphocytes (CBC) 1.3 K/uL (0.7-4.9); Hematocrit 35.9 % (36.0-45.0); MCV 86.3 fL (80-100); MPV 8.6 fL (7.6-11.3); Protime INR 1.39; RBC Red Blood Cell Count 4.16 M/uL (3.86-4.86)
[2021-09-25 19:36] LABS: ALT/SGPT 30 U/L (12-78); AST/SGOT 16 U/L (15-37); Albumin 3.5 g/dL (3.4-5.0); Alkaline Phosphatase 71 U/L (45-117); BUN Blood Urea Nitrogen 42 mg/dL (7-18); Bicarbonate 21 mmol/L (21-32); Bilirubin Total 0.3 mg/dL (0.2-1.0); Glomerular Filtration Rate 41 ml/min (=/>90); Glucose Level 142 mg/dL (74-106); Magnesium 1.7 mg/dL (1.8-2.4); NT PRO-BNP 930 pg/mL (<125); Potassium 4.1 mmol/L (3.5-5.1); Protein, Total 6.2 g/dL (6.4-8.2); Sodium Level 139 mmol/L (136-145); Troponin High Sensitivity 7.3 pg/mL (<58.9)
[2021-09-25 19:39] LABS: Bilirubin Direct < 0.1 mg/dL (0-0.2)
[2021-09-25] MEDS ORDERED: ASPIRIN 81 MG CHEWABLE TABLET ONE (19:52)
[2021-09-25] MEDS ORDERED: LORazepam 2 MG/ML VIAL ONE (19:58)
[2021-09-25] MEDS ORDERED: MAGNESIUM SULFATE 1 gm IVPB 1 GM/100 ML BAG IV ONE (20:19)
--- NOTE | 2021-09-25 20:20 | RAD REPORT ---
EXAM DESCRIPTION: RAD - Chest Single View - 09/25/2021 8:05 pm CLINICAL HISTORY: SOB COMPARISON: Portable 04/25/2021 TECHNIQUE: AP portable chest image was obtained 09/25/2021 8:05 pm . FINDINGS: No acute lung parenchymal process. Interstitial pattern matches comparison. Loop recorder now overlies the mid left chest. Hilar regions are normal range and stable. Heart and vasculature are normal. No measurable pleural effusion and no pneumothorax. No acute bony abnormality seen. No acute aortic findings suspected. IMPRESSION: No acute cardiopulmonary process.
[2021-09-25 20:41] LABS: Urine Blood Negative (Negative); Urine Glucose Negative (Negative); Urine Protein Negative (Negative); Urine Specific Gravity 1.025 (1.005-1.030); Urine pH 5.5 (5.0-7.0)
[2021-09-25 22:09] LABS: Urine RBC <5 /HPF (None Seen)
[2021-09-25 22:10] LABS: Urine Bacteria <20 /HPF (<20)
--- NOTE | 2021-09-26 00:18 | ER ---
Nurse's Notes [facility] Name: Tiara Stokes Age: 66 yrs Sex: Female : 1955 Arrival Date: 09/25/2021 Time: 18:41 Bed 2 Private MD: Diagnosis: Chest pain, unspecified;Shortness of breath Presentation: 09/25 18:41 Chief complaint: EMS states: Chest pressure and SOB began today at 0900; pt stated took vg1 Albuterol inhaler twice today. Upon arrival to pt home pt rated CP 8/10. Pt was given 324 mg of Aspirin and 0.4 mg of Nitroglycerin. BGL was 232, pt denies DM. Coronavirus screen: Vaccine status: Patient reports receiving the 2nd dose of the covid vaccine. Client denies travel out of the [place] in the last 14 days. Ebola Screen: Patient denies exposure to infectious person. Patient denies travel to an Ebola-affected area in the 21 days before illness onset. Initial Sepsis Screen: Does the patient meet any 2 criteria? No. Patient's initial sepsis screen is negative. Does the patient have a suspected source of infection? No. Patient's initial sepsis screen is negative. Risk Assessment: Do you want to hurt yourself or someone else? Patient reports no desire to harm self or others. Onset of symptoms was September 25, 2021 at 09:00. 18:41 Method Of Arrival: [facility] 18:41 Acuity: MELANIE 2 vg1 18:41 Care prior to arrival: IV initiated. 22 GA, in the right wrist. vg1 Triage Assessment: 18:44 General: Appears in no apparent distress. uncomfortable, Behavior is calm, cooperative. vg1 Pain: Complains of pain in chest Pain does not radiate. Pain currently is 6 out of 10 on a pain scale. Quality of pain is described as pressure, Pain began today at 0900. EENT: No signs and/or symptoms were reported regarding the EENT system. Neuro: Level of Consciousness is awake, alert, obeys commands, Oriented to person, place, time, situation. Cardiovascular: Reports chest pain, nausea, shortness of breath, Patient's skin is warm and dry. Chest pain is described as Pain is 6 out of 10 on a pain scale. Respiratory: Airway is patent Respiratory effort is even, unlabored. GI: Abdomen is flat, Reports nausea. : No signs and/or symptoms were reported regarding the genitourinary system. Derm: Skin is pink, warm \T\ dry. Musculoskeletal: Circulation, motion, and sensation intact. Historical: - Allergies: 18:44 Codeine; vg1 - Home Meds: 18:44 Eliquis 2.5 mg Oral tab [Active]; trazodone 100 mg Oral tab nightly [Active]; vg1 metoprolol tartrate 25 mg Oral tab 1 tab 2 times per day [Active]; atorvastatin 20 mg Oral tab [Active]; Doxycycline Oral [Active]; 09/26 00:26 aspirin 81 mg Oral tab [Active]; omeprazole 20 mg Oral cpDR [Active]; lithium carbonate kd3 150 mg Oral cap [Active]; pantoprazole 40 mg Oral TbEC [Active]; sucralfate 1 gram Oral tab [Active]; levothyroxine oral [Active]; triamterene-hydrochlorothiazid 37.5-25 mg Oral tab 1 tab once daily [Active]; lamotrigine 100 mg Oral tab 1.5 tabs 0.5 tab in the morning, one tab at night [Active]; duloxetine 60 mg Oral CDRS 1 cap twice daily [Active]; - PMHx: 09/25 18:44 Atrial fibrillation; breast cancer; Myocardial infarction; Bone Cancer; Bipolar vg1 disorder; - PSHx: 18:44 abdirizak mastectomy; L knee replacement; vg1 - Immunization history:: Client reports receiving the 2nd dose of the Covid vaccine. - Social history:: Smoking status: Patient denies any tobacco usage or history of. Screenin:49 Abuse screen: Denies threats or abuse. Nutritional screening: No deficits noted. vg1 Tuberculosis screening: No symptoms or risk factors identified. Fall Risk No fall in past 12 months (0 pts). No secondary diagnosis (0 pts). IV access (20 points). Ambulatory Aid- None/Bed Rest/Nurse Assist (0 pts). Gait- Normal/Bed Rest/Wheelchair (0 pts) Mental Status- Oriented to own ability (0 pts). Total [place] Fall Scale indicates No Risk (0-24 pts). Assessment: 18:49 Reassessment: SEE TRIAGE. vg1 21:45 Reassessment: Patient appears in no apparent distress at this time. Patient and/or as6 family updated on plan of care and expected duration. Pain level reassessed. Patient is alert, oriented x 3, equal unlabored respirations, skin warm/dry/pink. Vital Signs: 18:41 BP 118 / 75; Pulse 70; Resp 16; Temp 98.2; Pulse Ox 100% on R/A; Weight 58.06 kg; vg1 Height 5 ft. 4 in. (162.56 cm); Pain 6/10; 19:36 BP 112 / 68; Pulse 58; Resp 24 S; Pulse Ox 100% on R/A; as6 21:45 BP 118 / 72; Pulse 54; Resp 17 S; Pulse Ox 100% on R/A; as6 09/26 00:27 BP 142 / 66; Pulse 55; Resp 18; Pulse Ox 100% on R/A; kd3 09/25 18:41 Body Mass Index 21.97 (58.06 kg, 162.56 cm) vg1 ED Course: 09/25 18:41 Patient arrived in ED. vg1 18:41 Kin Fuentes PA is PHCP. cp 18:41 Kin Munoz MD is Attending Physician. cp 18:44 Triage completed. vg1 18:44 Arm band placed on. vg1 18:50 Angeline Sanders RN is Primary Nurse. vg1 18:50 Patient has correct armband on for positive identification. Bed in low position. Call vg1 light in reach. Side rails up X2. Client placed on continuous cardiac and pulse oximetry monitoring. NIBP monitoring applied. 18:50 Patient maintains SpO2 saturation greater than 95% on room air. vg1 19:23 Primary Nurse role handed off by Angeline Sanders, KIARA mw2 19:36 Awais Gil, KIARA is Primary Nurse. as6 20:07 XRAY Chest (1 view) In Process Unspecified. EDMS 23:21 Troponin High Sensitivity Sent. kd3 09/26 00:26 No provider procedures requiring assistance completed. IV discontinued, intact, kd3 bleeding controlled, No redness/swelling at site. Pressure dressing applied. Administered Medications: 09/25 19:55 Drug: Ativan (LORazepam) 0.5 mg Route: IVP; Site: right wrist; aa9 20:28 Follow up: Response: No adverse reaction aa9 19:55 Drug: Aspirin Chewable Tablet 324 mg Route: PO; aa9 20:27 Follow up: Response: No adverse reaction aa9 20:27 Drug: Magnesium Sulfate 1 grams Route: IVPB; Infused Over: 1 hrs; Site: right wrist; aa9 21:44 Follow up: Response: No adverse reaction; IV Status: Completed infusion; IV Intake: as6 100ml Medication: 09/26 00:26 VIS not applicable for this client. kd3 Intake: 09/25 21:44 IV: 100ml; Total: 100ml. as6 Outcome: 09/26 00:16 Discharge ordered by . manolo 00:26 Discharged to home ambulatory. kd3 00:26 Condition: stable 00:26 Discharge instructions given to patient, Instructed on discharge instructions, follow up and referral plans. Demonstrated understanding of instructions, follow-up care. 00:27 Patient left the ED. kd3 Signatures: Dispatcher [employer] EDMS Kin Fuentes PA PA cp [place], MyKena mw2 Angeline Sanders RN RN vg1 Awais Gil RN RN as6 Catrachita Jones RN RN kd3 Jo Ann Pena, KIARA RN aa9
--- NOTE | 2021-09-26 00:18 | EDPHYS ---
Physician Documentation [facility] Name: Tiara Stokes Age: 66 yrs Sex: Female : 1955 Arrival Date: 09/25/2021 Time: 18:41 Bed 2 Private MD: ED Physician Kin Munoz HPI: 09/25 18:45 This 66 yrs old Female presents to ER via EMS with complaints of Chest Pain, Shortness cp Of Breath. 18:45 The patient has shortness of breath at rest. cp 18:45 Onset: The symptoms/episode began/occurred this morning, today. Duration: The symptoms cp are continuous, and are steadily getting worse. Associated signs and symptoms: Pertinent positives: chest pain, Pertinent negatives: non-productive cough, productive cough, diaphoresis, fever, vomiting. Severity of symptoms: in the emergency department the symptoms are unchanged despite home interventions. Patient reports history of a-fib. No history of CHF and/or COPD. Patient denies fever, cough. Shortness of breath started this morning. Historical: - Allergies: 18:44 Codeine; vg1 - Home Meds: 18:44 Eliquis 2.5 mg Oral tab [Active]; trazodone 100 mg Oral tab nightly [Active]; vg1 metoprolol tartrate 25 mg Oral tab 1 tab 2 times per day [Active]; atorvastatin 20 mg Oral tab [Active]; Doxycycline Oral [Active]; 09/26 00:26 aspirin 81 mg Oral tab [Active]; omeprazole 20 mg Oral cpDR [Active]; lithium carbonate kd3 150 mg Oral cap [Active]; pantoprazole 40 mg Oral TbEC [Active]; sucralfate 1 gram Oral tab [Active]; levothyroxine oral [Active]; triamterene-hydrochlorothiazid 37.5-25 mg Oral tab 1 tab once daily [Active]; lamotrigine 100 mg Oral tab 1.5 tabs 0.5 tab in the morning, one tab at night [Active]; duloxetine 60 mg Oral CDRS 1 cap twice daily [Active]; - PMHx: 09/25 18:44 Atrial fibrillation; breast cancer; Myocardial infarction; Bone Cancer; Bipolar vg1 disorder; - PSHx: 18:44 abdirizak mastectomy; L knee replacement; vg1 - Immunization history:: Client reports receiving the 2nd dose of the Covid vaccine. - Social history:: Smoking status: Patient denies any tobacco usage or history of. ROS: 18:50 Constitutional: Negative for body aches, chills, fever, poor PO intake. cp 18:50 Eyes: Negative for injury, pain, redness, and discharge. cp 18:50 ENT: Negative for drainage from ear(s), ear pain, sore throat, difficulty swallowing, difficulty handling secretions. 18:50 Cardiovascular: Positive for chest pain, Negative for edema, palpitations. 18:50 Respiratory: Positive for shortness of breath, at rest. Negative for cough, wheezing. 18:50 Abdomen/GI: Negative for abdominal pain, nausea, vomiting, and diarrhea, constipation. 18:50 : Negative for urinary symptoms. 18:50 Neuro: Negative for altered mental status, dizziness, headache, numbness, syncope, weakness. 18:50 All other systems are negative. Exam: 18:55 Constitutional: The patient appears in no acute distress, alert, awake, cp non-diaphoretic, non-toxic, well developed, well nourished, anxious. 18:55 Head/Face: Normocephalic, atraumatic. cp 18:55 Eyes: Periorbital structures: appear normal, Conjunctiva: normal, no exudate, no injection, Sclera: no appreciated abnormality, Lids and lashes: appear normal, bilaterally. 18:55 ENT: External ear(s): are unremarkable, Nose: is normal, Mouth: Lips: moist, Oral mucosa: pink and intact, moist, Posterior pharynx: Airway: no evidence of obstruction, patent, erythema, is not appreciated, exudate, is not appreciated. 18:55 Neck: ROM/movement: is normal, is supple, without pain, no range of motions limitations, no meningismus. 18:55 Chest/axilla: Inspection: normal, Palpation: is normal, no crepitus, no tenderness. 18:55 Cardiovascular: Rate: normal, Rhythm: regular, Edema: is not appreciated, JVD: is not appreciated. 18:55 Respiratory: the patient does not display signs of respiratory distress, Respirations: shallow respirations, that is mild, Breath sounds: are clear throughout, no decreased breath sounds, no stridor, no wheezing. 18:55 Abdomen/GI: Inspection: abdomen appears normal, Palpation: abdomen is soft and non-tender, in all quadrants. 18:55 Back: pain, is absent, ROM is normal. 18:55 Skin: cellulitis, is not appreciated, no rash present. 18:55 Neuro: Orientation: to person, place \T\ time. Mentation: is normal, Cerebellar function: is grossly normal, Motor: moves all fours, strength is normal, Sensation: is normal. 19:00 ECG was reviewed by the Attending Physician. cp Vital Signs: 18:41 BP 118 / 75; Pulse 70; Resp 16; Temp 98.2; Pulse Ox 100% on R/A; Weight 58.06 kg; vg1 Height 5 ft. 4 in. (162.56 cm); Pain 6/10; 19:36 BP 112 / 68; Pulse 58; Resp 24 S; Pulse Ox 100% on R/A; as6 21:45 BP 118 / 72; Pulse 54; Resp 17 S; Pulse Ox 100% on R/A; as6 09/26 00:27 BP 142 / 66; Pulse 55; Resp 18; Pulse Ox 100% on R/A; kd3 09/25 18:41 Body Mass Index 21.97 (58.06 kg, 162.56 cm) vg1 MDM: 09/25 18:44 Patient medically screened. cp 19:00 Differential diagnosis: Anxiety Reaction asthma, Bronchitis CHF exacerbation, Chronic cp Obstructive Pulmonary Disease Myocardial Infarction pneumonia, Pneumothorax pulmonary edema, Pulmonary Embolism Sepsis Unstable Angina. 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 Interpretation: normal. 00:16 Data reviewed: vital signs, nurses notes, lab test result(s), EKG, radiologic studies, cp plain films. 00:16 Test interpretation: by ED physician or midlevel provider: ECG, plain radiologic cp studies. Counseling: I had a detailed discussion with the patient and/or guardian regarding: the historical points, exam findings, and any diagnostic results supporting the discharge/admit diagnosis, lab results, radiology results, the need for outpatient follow up, a family practitioner, to return to the emergency department if symptoms worsen or persist or if there are any questions or concerns that arise at home. Response to treatment: the patient's symptoms have markedly improved after treatment, and as a result, I will discharge patient. 09/25 18:43 Order name: Basic Metabolic Panel; Complete Time: 19:56 09/25 19:56 Interpretation: Normal except: CL 108; GLUC 142; BUN 42; CRE 1.39; GFR 41. cp 09/25 18:43 Order name: CBC with Diff; Complete Time: 19:37 cp 09/25 18:43 Order name: LFT's; Complete Time: 19:56 cp 09/25 18:43 Order name: Magnesium; Complete Time: 19:56 cp 09/25 18:43 Order name: NT PRO-BNP; Complete Time: 19:56 cp 09/25 18:43 Order name: PT-INR; Complete Time: 19:37 cp 09/25 18:43 Order name: Troponin HS; Complete Time: 19:56 cp 09/25 18:43 Order name: XRAY Chest (1 view); Complete Time: 21:06 cp 09/25 21:07 Interpretation: Report review. 09/25 19:57 Order name: Urine Microscopic Only; Complete Time: 00:16 09/25 20:41 Order name: Urine Dipstick-Ancillary; Complete Time: 21:06 EDKY 09/25 21:07 Interpretation: Reviewed. 09/25 20:43 Order name: Urine Dipstick-Ancillary EDKY 09/25 23:09 Order name: Troponin High Sensitivity; Complete Time: 00:16 cp 09/25 18:43 Order name: EKG; Complete Time: 18:44 09/25 18:43 Order name: Cardiac monitoring; Complete Time: 19:01 09/25 18:43 Order name: EKG - Nurse/Tech; Complete Time: 19:01 09/25 18:43 Order name: IV Saline Lock; Complete Time: 19:01 09/25 18:43 Order name: Labs collected and sent; Complete Time: 19:08 09/25 18:43 Order name: O2 Per Protocol; Complete Time: 18:50 09/25 18:43 Order name: O2 Sat Monitoring; Complete Time: 18:50 09/25 19:57 Order name: Urine Dipstick-Ancillary (obtain specimen); Complete Time: 20:58 cp EC/25 19:00 Rate is 64 beats/min. Rhythm is regular. ME interval is normal. QRS interval is normal. cp T waves are Inverted in leads III, aVR. Interpreted by me. Reviewed by me. Administered Medications: : Drug: Ativan (LORazepam) 0.5 mg Route: IVP; Site: right wrist; aa9 20:28 Follow up: Response: No adverse reaction aa9 19:55 Drug: Aspirin Chewable Tablet 324 mg Route: PO; aa9 20:27 Follow up: Response: No adverse reaction aa9 : Drug: Magnesium Sulfate 1 grams Route: IVPB; Infused Over: 1 hrs; Site: right wrist; aa9 21:44 Follow up: Response: No adverse reaction; IV Status: Completed infusion; IV Intake: as6 100ml Disposition Summary: 09/26/21 00:16 Discharge Ordered Location: Home cp Problem: new cp Symptoms: have improved cp Condition: Stable cp Diagnosis - Chest pain, unspecified cp - Shortness of breath cp Followup: cp - With: Private Physician - When: 1 - 2 days - Reason: Recheck today's complaints Discharge Instructions: - Discharge Summary Sheet cp - Nonspecific Chest Pain, Adult cp - Shortness of Breath, Adult cp - Aspirin and Your Heart cp Forms: - Medication Reconciliation Form cp - Thank You Letter cp - Antibiotic Education cp - Prescription Opioid Use cp Signatures: Dispatcher [employer] EDMS Kin Fuentes PA PA cp Angeline Sanders RN RN vg1 Catrachita Jones RN RN kd3 Jo Ann Pena, RN RN aa9 Awais Gil RN as6 Corrections: (The following items were deleted from the chart) 09/26 17:18 00:16 Test interpretation: by ED physician or midlevel provider: ECG, plain radiologic cp studies, cp 17:18 00:16 Counseling: I had a detailed discussion with the patient and/or guardian cp regarding: the historical points, exam findings, and any diagnostic results supporting the discharge/admit diagnosis, lab results, radiology results, the need for outpatient follow up, a family practitioner, to return to the emergency department if symptoms worsen or persist or if there are any questions or concerns that arise at home, cp
[2021-09-26 00:52] VITALS: TEMP 98.2; O2SAT 100
[2021-09-26 00:57] VITALS: BP 142/66
--- NOTE | 2021-09-26 12:38 | EKG ---
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
== END 2021-09-26 00:27 | disposition home or self-care (01) ==
LOC: ER 18:38
DX: R07.9 Chest pain, unspecified (principal); R06.02 Shortness of breath; I48.91 Unspecified atrial fibrillation; Z79.01 Long term (current) use of anticoagulants; F31.9 Bipolar disorder, unspecified; I25.2 Old myocardial infarction; Z79.82 Long term (current) use of aspirin; Z85.3 Personal history of malignant neoplasm of breast; Z85.830 Personal history of malignant neoplasm of bone; Z90.13 Acquired absence of bilateral breasts and nipples; Z88.5 Allergy status to narcotic agent
CPT/HCPCS: 96365; 93005; 85025; 80048; 36415; 83735; 85610; 80076; 84484 ×2; 83880; 71045; 96375; 99284; J3475; 81003; 81015